=== PATIENT | male | born 1950 | race African-American/Black ===

== ENCOUNTER 2017-09-07 10:24 | Emergency (ER) | payer MEDICARE, MEDICAID ==
--- NOTE | 2017-09-07 11:39 | ULT ---
LEFT LOWER EXTREMITY VENOUS DOPPLER: History: Left lower extremity swelling and pain. Comparison: None. Technique: Real-time grayscale, color flow, and spectral analysis of the left lower extremity venous system was performed with a linear transducer. The common femoral, femoral, proximal portions of the greater saphenous and deep femoral veins as well as the popliteal and posterior tibial veins were int errogated. FINDINGS: Normal flow, augmentation, and compression. IMPRESSION: No deep venous thrombosis. POS: OFF
[2017-09-07] MEDS ORDERED: Ketorolac Tromethamine 30 MG/ML VIAL ONE (11:42)
[2017-09-07 11:51] LABS: #Eosinphils 0.2 thou/uL (0.0-0.7); #Lymphocytes 1.5 thou/uL (1.20-3.40); #Monocytes 0.6 thou/uL (0.11-0.59); #Neutrophils 4.3 thou/uL (1.40-6.50); %Basophils 0.4 % (0.0-1.0); %Lymphocytes 22.6 % (21.0-51.0); %Monocytes 8.8 % (0.0-10.0); Hematocrit 42.9 % (42.0-52.0); Mean Platelet Volume 7.8 fL (7.4-10.4); Red Blood Cell (RBC) Count 4.62 mill/uL (4.70-6.10); White Blood Cell (WBC) Count 6.6 thou/uL (4.8-10.8)
[2017-09-07 12:11] LABS: ALT (SGPT) 15 U/L (8-55); AST (SGOT) 16 U/L (5-34); Alkaline Phosphatase 81 U/L (40-150); Anion Gap 15 mmol/L (10-20); BUN (Urea Nitrogen) 24 mg/dL (8.4-25.7); Bilirubin, Total 0.5 mg/dL (0.2-1.2); Calc. Creatinine Clearance 0 mL/min (70-130); Calcium 11.3 mg/dL (7.8-10.44); Carbon Dioxide 24 mmol/L (23-31); Chloride 104 mmol/L (98-107); Estimated GFR-MDRD 60; Globulin 3.2 g/dL (2.4-3.5); Protein, Total 7.5 g/dL (5.8-8.1)
== END 2017-09-07 12:55 | disposition home or self-care (01) ==
LOC: ERS 10:24
DX: E11.41 Type 2 diabetes mellitus with diabetic mononeuropathy (principal); G57.92 Unspecified mononeuropathy of left lower limb; E78.5 Hyperlipidemia, unspecified; I10 Essential (primary) hypertension; Z79.84 Long term (current) use of oral hypoglycemic drugs; Z79.899 Other long term (current) drug therapy
CPT/HCPCS: 80053; 85025; 85379; 96374; J1885

== ENCOUNTER 2017-09-13 09:59 | Inpatient (IN) | payer MEDICARE, MEDICAID ==
[2017-09-13 11:02] LABS: #Eosinphils 0.1 thou/uL (0.0-0.7); #Lymphocytes 1.1 thou/uL (1.20-3.40); #Monocytes 1.1 thou/uL (0.11-0.59); #Neutrophils 11.8 thou/uL (1.40-6.50); %Basophils 0.2 % (0.0-1.0); %Eosinophils 0.4 % (0.0-10.0); %Lymphocytes 7.5 % (21.0-51.0); %Neutrophils 83.9 % (42.0-75.0); Hemoglobin 13.5 g/dL (14.0-18.0); Mean Corpuscular HGB CONC 33.2 g/dL (32.0-36.0); Mean Corpuscular Hemoglobin 30.9 pg (27.0-31.0); Mean Corpuscular Volume 93.1 fl (80.0-94.0); Mean Platelet Volume 6.4 fL (7.4-10.4); Platelet Count 240 thou/uL (130-400); RBC Distribution Width 12.3 % (11.5-14.5); Red Blood Cell (RBC) Count 4.38 mill/uL (4.70-6.10); White Blood Cell (WBC) Count 14.1 thou/uL (4.8-10.8)
[2017-09-13 11:17] LABS: Anion Gap 15 mmol/L (10-20); BUN (Urea Nitrogen) 12 mg/dL (8.4-25.7); Calc. Creatinine Clearance 0 mL/min (70-130); Calcium 10.4 mg/dL (7.8-10.44); Carbon Dioxide 27 mmol/L (23-31); Chloride 98 mmol/L (98-107); Estimated GFR-MDRD 79; Glucose 291 mg/dL (80-115); Potassium 4.1 mmol/L (3.5-5.1); Sodium 136 mmol/L (136-145)
[2017-09-13] MEDS ORDERED: Methocarbamol 1 GM in Sodium Chloride 0.9% 250 ML 250 ML IVPB SCH (11:45)
[2017-09-13 13:01] LABS: Bilirubin Negative (Negative); Blood, Urine Small (Negative); Clarity CLOUDY (Clear); Glucose, Urine (Dipstick) 500 mg/dL (Negative); Leukocyte Moderate (Negative); Nitrite Positive (Negative); Protein, Urine (Dipstick) Trace mg/dL (Neg-Trace); Specific Gravity, Urine 1.025 (1.002-1.036); Urobilinogen 0.2 mg/dL (0.2-1.0); pH, Urine 5.5 (5.0-9.0)
[2017-09-13 13:05] LABS: Bacteria/HPF 4+ HPF (None Seen); Hyaline Casts/LPF 0-3 HYALINE CAST LPF (0-3 Hyaline); Pathc Cast-AUWi Flag 0.13 (0-2.49); Squamous Epithelial 0-3 HPF (0-3)
[2017-09-13 13:07] LABS: Yeast-AUWi Flag 1112.7 (0-25.0)
[2017-09-13] MEDS ORDERED: Labetalol HCl 100 MG/20 ML VIAL ONE (13:08)
[2017-09-13 13:21] LABS: Yeast-All Forms 3+ HPF (None Seen)
[2017-09-13 16:15] VITALS: BMI 27.0
[2017-09-13] MEDS ORDERED: hydrALAZINE 20 MG/ML VIAL SLOW IVP PRN (17:19)
[2017-09-13] MEDS ORDERED: Ondansetron HCl/PF 4 MG/2 ML Vial IVP PRN (17:19)
[2017-09-13] MEDS ORDERED: Ondansetron ODT 4 MG TAB PO PRN (17:19)
[2017-09-13] MEDS ORDERED: Mag-Al 1200 mg/1200 mg/30 ML UDCUP PO PRN (17:19)
[2017-09-13] MEDS ORDERED: Dextrose 50% Abboject 50 ML SYRINGE SLOW IVP PRN (17:19)
[2017-09-13] MEDS ORDERED: Acetaminophen 325 MG TAB PO PRN (17:19)
[2017-09-13] MEDS ORDERED: Dextrose 5% in Water 1,000 ML IV PRN (17:19)
[2017-09-13] MEDS ORDERED: HumaLOG 300 UNITS/3 ML VIAL SC PRN (17:19)
--- NOTE | 2017-09-13 18:27 | HP ---
PRIMARY CARE PHYSICIAN: Madison Carcamo NP. CHIEF COMPLAINT: "I'm hurting from my head to my toe on the left side." HISTORY OF PRESENT ILLNESS: Mr. Milner is a pleasant 67-year-old gentleman who has a history of hy pertension as well as diabetes mellitus and history of previous cerebrovascular accident. He says th at he has been having pain in his left side. He says primarily from the shoulder area and to the otilio k of the neck all the way down the left side of his back and into his legs. He said he went to the e mergency room for evaluation and they prescribed a muscle relaxer, but it did not help. He says that he continued to have pain and came to the emergency room once again for evaluation. This time in [facility] emergency room, a urinalysis was done, which showed findings significant for a urinary tract infect ion. He also has an elevated white blood cell count and it is thought that his symptoms could be rel ated to pyelonephritis. He does admit to having some dysuria off and on, but denies any blood in the urine. He denies any fevers or chills. No nausea. No vomiting. He also denies any change in fang ls, but does admit to having some hard stool off and on. REVIEW OF SYSTEMS: Constitutional: Again, no fevers, no chills, no night sweats, no weight loss. H EENT: He denies any headaches. No dizziness. No sore throat, rhinorrhea. Neck: He has had some p ain on the left side of his neck. No adenopathy. Pulmonary: No hemoptysis. No cough. No wheezing . Cardiovascular: He denies chest pain. No shortness of breath. No PND. No orthopnea. Gastroint estinal: No abdominal pain. No nausea. No vomiting. No change in bowels. He does have some left flank pain. Genitourinary: He does complain of some dysuria, but no hematuria. Musculoskeletal: H e complains of pain in his back as well as his left leg down all the way to his feet. Skin/Integumen t: No skin changes. No rash. Psychiatric: No symptoms of anxiety or depression. PAST MEDICAL HISTORY: Significant for osteoarthritis, diabetes mellitus, hyperlipidemia, hypertensio n, cerebrovascular disease, and osteoarthritis. PAST SURGICAL HISTORY: He has had cataract surgery. ALLERGIES: PENICILLIN, CABBAGE, ALL DIET FOODS, and ASPARTAME. FAMILY HISTORY: Significant for cerebrovascular accident and diabetes mellitus. SOCIAL HISTORY: He is a nonsmoker, nondrinker. He lives with his sister. He says he normally gets around with a cane. He does have some difficulty getting in and out of bed. He says he sometimes olea ve to roll out of the bed and somehow roll back into the bed for transfers. CURRENT MEDICATIONS: He says they are the same as on his last admission and these include doxazosin 4 mg daily, metformin 1000 mg twice a day, glipizide 10 mg twice a day, Januvia 100 mg daily, carvedi lol 6.25 mg twice a day, Lasix 20 mg daily, atorvastatin 20 mg daily, albuterol nebs q.4 hours as nee ded, and Neurontin 100 mg twice a day. PHYSICAL EXAMINATION: GENERAL: He is alert and oriented. He appears to be in no acute distress. VITAL SIGNS: Blood pressure was 161/86, heart rate 106, respiratory rate of 20, temperature is 98.6. HEENT: Pupils are equal, round, and reactive. Extraocular muscles are intact. His sclerae are anic teric. Throat, no erythema and no exudates. NECK: No adenopathy. No bruits. LUNGS: Clear to auscultation. There is no wheezing. No rales. CARDIOVASCULAR: He has a normal S1 and S2. There is no S3 or S4. No murmurs, clicks or rubs. ABDOMEN: Obese, it is soft, it is nontender, and nondistended. Positive for bowel sounds. No rebou nd or guarding. EXTREMITIES: There is no edema. NEUROLOGIC: Neurologically he is intact. His muscle strength is 5/5 in both his upper and lower ext remities. He is able to dorsiflex the large toe on both feet, as well as dorsiflex his entire foot a nd plantar flex. There are some minimal positive straight leg raises on the left at about 20-30 degr ees. LABORATORY DATA: White blood cell count is 14.1, hemoglobin 13.5, hematocrit is 40.8, platelet count is 240. Sodium 136, potassium 4.1, chloride is 98, CO2 is 27, BUN of 12, creatinine 1.13, glucose i s 291. Urinalysis, urine was cloudy, it was nitrite positive, too numerous to count wbc's, small isabela unt of blood, and 4+ bacteria. ASSESSMENT AND PLAN: This is a 67-year-old gentleman who presents with left flank pain. He also has pain in his upper back and shoulder as well as lower legs, which does not typically coincide with th e symptoms of pyelonephritis. He does in fact have a urinary tract infection and leukocytosis howeve r. 1. Pyelonephritis. He will be treated with IV Levaquin pending culture results. Since he is penici llin allergic, we will hold off on Rocephin and await culture results to help guide tailoring antibio tic therapy. 2. Upper back pain as well as pain in his legs. This is not entirely explained by the pyelonephriti s. This will need to be reassessed after he has had a few days of IV therapy. If these symptoms con tinued, then he may need some type of radiographic evaluation of his back. 3. Diabetes mellitus. We will continue his home medications with the exception of metformin and shiv ce him on a sliding scale insulin. 4. He is on doxazosin. I suspect he has a history of BPH and we will check a PSA and continue the d oxazosin. He may need outpatient urology followup given the pyelonephritis to determine whether or n ot he has any structural defects in his urological system, which may place him at risk. 5. Hypertension. We will continue carvedilol and place him on p.r.n. medications for elevated blood pressure.
[2017-09-13] MEDS ORDERED: Non-Formulary Item 1 EACH (Levemir Flexpen [Levemir Flexpen] 30 UNIT) SC SCH (21:00)
[2017-09-13] MEDS: hydrALAZINE 25 MG TAB PO SCH (21:36)
[2017-09-13] MEDS: Carvedilol 6.25 MG TAB PO SCH (21:36)
[2017-09-13] MEDS: Atorvastatin Calcium 20 MG TAB PO SCH (21:37)
[2017-09-13] MEDS: Famotidine 20 MG TAB PO SCH (21:37)
[2017-09-13] MEDS: Insulin Detemir 100 UNITS/ML 30 UNITS in Pre-Filled Syringe 1 EACH SC SCH (21:44)
[2017-09-14] MEDS: HYDROcodone/Acetaminophen 5/325 mg Tablet PO PRN ×3 (04:27→19:44)
[2017-09-14 04:55] LABS: #Eosinphils 0.1 thou/uL (0.0-0.7); #Lymphocytes 1.3 thou/uL (1.20-3.40); #Monocytes 1.1 thou/uL (0.11-0.59); #Neutrophils 9.9 thou/uL (1.40-6.50); %Basophils 0.2 % (0.0-1.0); %Lymphocytes 10.5 % (21.0-51.0); %Monocytes 8.9 % (0.0-10.0); %Neutrophils 79.4 % (42.0-75.0); Hemoglobin 12.3 g/dL (14.0-18.0); Mean Corpuscular HGB CONC 32.7 g/dL (32.0-36.0); Mean Corpuscular Hemoglobin 30.2 pg (27.0-31.0); Mean Corpuscular Volume 92.3 fl (80.0-94.0); Mean Platelet Volume 6.5 fL (7.4-10.4); Platelet Count 236 thou/uL (130-400); RBC Distribution Width 12.1 % (11.5-14.5); Red Blood Cell (RBC) Count 4.08 mill/uL (4.70-6.10); White Blood Cell (WBC) Count 12.5 thou/uL (4.8-10.8)
[2017-09-14 05:00] LABS: Anion Gap 11 mmol/L (10-20); BUN (Urea Nitrogen) 11 mg/dL (8.4-25.7); Calc. Creatinine Clearance 95 mL/min (70-130); Calcium 9.7 mg/dL (7.8-10.44); Carbon Dioxide 27 mmol/L (23-31); Chloride 103 mmol/L (98-107); Estimated GFR-MDRD Greater than 90; Glucose 260 mg/dL (80-115); Potassium 3.9 mmol/L (3.5-5.1); Sodium 137 mmol/L (136-145)
[2017-09-14] MEDS: traMADol HCl 50 MG TAB PO PRN (06:20)
[2017-09-14] MEDS: HumaLOG 300 UNITS/3 ML VIAL SC PRN ×2 (06:23→12:23)
[2017-09-14] MEDS ORDERED: Fluconazole 100 MG TAB PO SCH (09:00)
[2017-09-14] MEDS: Enoxaparin Sodium 40 MG/0.4 ML SYRINGE SC SCH (09:43)
[2017-09-14] MEDS: Carvedilol 6.25 MG TAB PO SCH ×2 (09:44→19:45)
[2017-09-14] MEDS: hydrALAZINE 25 MG TAB PO SCH ×2 (09:44→19:44)
[2017-09-14] MEDS: glipiZIDE 10 MG TAB PO SCH ×2 (09:45→17:16)
[2017-09-14] MEDS: Alogliptin 25 MG TAB PO SCH (09:45)
[2017-09-14] MEDS: Aspirin 81 mg Enteric Coated Tablet PO SCH (09:45)
[2017-09-14] MEDS: Famotidine 20 MG TAB PO SCH ×2 (09:45→19:43)
[2017-09-14] MEDS: Insulin Detemir 100 UNITS/ML 30 UNITS in Pre-Filled Syringe 1 EACH SC SCH ×2 (09:46→21:20)
--- NOTE | 2017-09-14 10:43 | ULT ---
RENAL ULTRASOUND: Clinical history: Pyelonephritis. FINDINGS: Symmetric renal lengths approximating 12 cm bilaterally are noted. There are bilateral hypoechoic foc i of each kidney, slightly greater than 1 cm on the right and slightly less than 1 cm on the left, in dicating cysts. There is no overt hydronephrosis or solid renal lesion identified. Imaged area of the bladder is grossly unremarkable. IMPRESSION: 1. No acute renal pathology evident. 2. Bilateral small renal cysts. POS: [facility]
--- NOTE | 2017-09-14 15:28 | RAD ---
LEFT ANKLE THREE VIEWS: Indication: Pain. Comparison: 09-08-07 FINDINGS: Mortise is intact. No fracture or dislocation. IMPRESSION: No acute osseous abnormality of the left ankle. POS: [facility]
--- NOTE | 2017-09-14 15:38 | RAD ---
THREE VIEWS LEFT FOOT 09/14/17 COMPARISON: 11/29/11 HISTORY: Left leg pain. FINDINGS: There is dorsal midfoot degenerative change. There is no displaced fracture or evidence of dislocatio n. IMPRESSION: Stable three view examination of the left foot. No fracture or dislocation seen. POS: [facility]
--- NOTE | 2017-09-14 15:39 | RAD ---
FRONTAL AND LATERAL IMAGING LEFT TIBIA AND FIBULA 09/14/17 COMPARISON: None. HISTORY: Left leg pain. FINDINGS: Incompletely assessed degenerative joint disease involves the left knee with medial and lateral brendan rtment narrowing. No displaced fracture or evidence of dislocation is seen. IMPRESSION: No acute osseous abnormality. POS: [facility]
[2017-09-14] MEDS: Atorvastatin Calcium 20 MG TAB PO SCH (19:43)
[2017-09-14] MEDS ORDERED: hydrALAZINE 25 MG TAB PO SCH ×2 (20:44→21:30)
--- NOTE | 2017-09-14 20:46 | PDOC.PN ---
- Subjective Encounter Start Date: 09/14/17 Encounter Start Time: 14:30 Patient seen and examined. Some dysuria. No overnight events. LLE pain/ difficulty ambulation per PT - XR ordered. - Objective Resuscitation Status: Resuscitation Status FULL:Full Resuscitation MAR Reviewed: Yes Vital Signs & Weight: Vital Signs (12 hours) Temp Pulse Pulse Pulse Pulse Pulse Pulse 09/14/17 19:47 97.9 F 73 09/14/17 19:45 09/14/17 19:44 73 09/14/17 10:30 79 84 92 85 88 09/14/17 09:46 09/14/17 09:44 79 Pulse Pulse Resp BP BP BP BP 09/14/17 19:47 18 09/14/17 19:45 186/90 H 09/14/17 19:44 186/90 H 09/14/17 10:30 87 77 178/93 H 168/79 H 141/79 H 09/14/17 09:46 175/90 H 09/14/17 09:44 185/90 H BP BP BP BP BP Pulse Ox 09/14/17 19:47 186/90 H 98 09/14/17 19:45 09/14/17 19:44 09/14/17 10:30 151/75 H 161/78 H 178/85 H 203/92 H 09/14/17 09:46 09/14/17 09:44 Weight Admit Weight 199 lb 1.6 oz Weight 199 lb 1.6 oz I&O: 09/13/17 09/14/17 09/15/17 06:59 06:59 06:59 Intake Total 650 850 Output Total 325 Balance 325 850 Result Diagrams: 09/14/17 04:15 09/14/17 04:15 Additional Labs: Accuchecks 09/14/17 09/14/17 09/14/17 16:21 12:02 05:47 POC Glucose 117 H 232 H 217 H 09/13/17 21:44 POC Glucose 359 H Microbiology 09/13/17 12:23 Urine voided Urine Culture - Preliminary Gram Negative [place] Presumptive Escherichia coli Radiology Reviewed by me: Yes (Renal USG - no obstruction, LLE XR - negative) Phys Exam - Physical Examination Constitutional: NAD HEENT: moist MMs Respiratory: no wheezing, no rales, no rhonchi, clear to auscultation bilateral Cardiovascular: RRR, no significant murmur, no rub no heaves/pulsations Gastrointestinal: soft, non-tender, no distention, positive bowel sounds Musculoskeletal: no edema Neurological: non-focal, normal sensation, moves all 4 limbs Psychiatric: normal affect, A&O x 3 Dx/Plan - Plan continue antibiotics, PT/OT, DVT proph w/lovenox, DVT proph w/SCDs IMPRESSION: 1. Sepsis due to UTI ?Prostatitis 2. DM2 - on sliding scale 3. HTN - uncontrolled. 4. BPH 5. HLD/PCN allergy/chronic Anemia PLAN: * Await Urine culture * Cont Atbx * Cont to monitor * Increase Hydralazine dose Review of Systems - Review of Systems Respiratory: negative: Cough, Dry, Shortness of Breath, Hemoptysis, SOB with Excertion, Pleuritic Pain, Sputum, Wheezing Cardiovascular: negative: chest pain, palpitations, orthopnea, paroxysmal nocturnal dyspnea, edema, light headedness - Medications/Allergies Allergies/Adverse Reactions: Allergies Allergy/AdvReac Type Severity Reaction Status Date / Time aspartame Allergy Rash Verified 09/13/17 17:42 [From Konsyl Sugar-Free (aspartame)] codeine Allergy Verified 09/13/17 17:42 Penicillins Allergy Verified 09/13/17 17:42 Medications: Current Medications Acetaminophen (Tylenol) 650 mg PO Q4H PRN PRN Reason: Headache/Fever or Pain Hydrocodone Bitart/Acetaminophen (Newborn 5/325) 1 tab PO Q4H PRN PRN Reason: Moderate Pain (4-6) Last Admin: 09/14/17 19:44 Dose: 1 tab Al Hydroxide/Mg Hydroxide (Maalox) 30 ml PO Q6H PRN PRN Reason: Heartburn or Indigestion Alogliptin Benzoate (Alogliptin) 25 mg PO DAILY [facility] Last Admin: 09/14/17 09:45 Dose: 25 mg Aspirin (Ecotrin) 81 mg PO DAILY [facility] Last Admin: 09/14/17 09:45 Dose: 81 mg Atorvastatin Calcium (Lipitor) 20 mg PO HS [facility] Last Admin: 09/14/17 19:43 Dose: 20 mg Carvedilol (Coreg) 6.25 mg PO BID [facility] Last Admin: 09/14/17 19:45 Dose: 6.25 mg Dextrose/Water (Dextrose 50%) 25 gm SLOW IVP PRN PRN PRN Reason: Hypoglycemia Enoxaparin Sodium (Lovenox) 40 mg SC 0900 [facility] Last Admin: 09/14/17 09:43 Dose: 40 mg Famotidine (Pepcid) 20 mg PO BID [facility] Last Admin: 09/14/17 19:43 Dose: 20 mg Fluconazole (Diflucan) 100 mg PO DAILY [facility] Last Admin: 09/14/17 09:45 Dose: 100 mg Glipizide (Glucotrol) 10 mg PO BID[facility] Last Admin: 09/14/17 17:16 Dose: 10 mg Glucagon (Glucagon) 1 mg IM PRN PRN PRN Reason: Hypoglycemia Hydralazine HCl (Apresoline) 10 mg SLOW IVP Q4H PRN PRN Reason: Systolic BP > 180 Hydralazine HCl (Apresoline) 50 mg PO BID [facility] Dextrose/Water (D5w) 1,000 mls @ 0 mls/hr IV .Q0M PRN; As Directed PRN Reason: Hypoglycemia Levofloxacin 500 mg/ Device 100 mls @ 100 mls/hr IVPB Q24HR [facility] Last Admin: 09/14/17 17:16 Dose: 100 mls Insulin Detemir 30 units/ (Miscellaneous Medication) 0.3 mls @ 0 mls/hr SC BID [facility] Last Admin: 09/14/17 09:46 Dose: 0.3 mls Insulin Human Lispro (Humalog) 0 units SC .MODERATE SLIDING SC PRN PRN Reason: Moderate Correctional Scale Last Admin: 09/14/17 12:23 Dose: 4 unit Insulin Human Lispro (Humalog) 0 units SC .BEDTIME SLIDING SC PRN PRN Reason: Bedtime Correctional Scale Last Admin: 09/13/17 21:51 Dose: 5 unit Ondansetron HCl (Zofran Odt) 4 mg PO Q6H PRN PRN Reason: Nausea/Vomiting Ondansetron HCl (Zofran) 4 mg IVP Q6H PRN PRN Reason: Nausea/Vomiting Quinapril HCl (Accupril) 20 mg PO DAILY [facility] Last Admin: 09/14/17 09:46 Dose: 20 mg Sodium Chloride (Flush - Normal Saline) 10 ml IVF Q12HR [facility] Last Admin: 09/14/17 09:46 Dose: 10 ml Sodium Chloride (Flush - Normal Saline) 10 ml IVF PRN PRN PRN Reason: Saline Flush Tramadol HCl (Ultram) 50 mg PO QID PRN PRN Reason: Pain Last Admin: 09/14/17 06:20 Dose: 50 mg
[2017-09-15] MEDS: traMADol HCl 50 MG TAB PO PRN (00:18)
[2017-09-15] MEDS: HYDROcodone/Acetaminophen 5/325 mg Tablet PO PRN ×4 (03:42→20:17)
[2017-09-15 06:20] LABS: #Eosinphils 0.2 thou/uL (0.0-0.7); #Lymphocytes 0.6 thou/uL (1.20-3.40); #Monocytes 0.6 thou/uL (0.11-0.59); #Neutrophils 4.8 thou/uL (1.40-6.50); %Eosinophils 2.8 % (0.0-10.0); %Lymphocytes 10.1 % (21.0-51.0); %Monocytes 9.6 % (0.0-10.0); %Neutrophils 77.4 % (42.0-75.0); Hemoglobin 13.1 g/dL (14.0-18.0); Mean Corpuscular HGB CONC 32.9 g/dL (32.0-36.0); Mean Corpuscular Hemoglobin 30.4 pg (27.0-31.0); Mean Corpuscular Volume 92.4 fl (80.0-94.0); Mean Platelet Volume 6.7 fL (7.4-10.4); Platelet Count 239 thou/uL (130-400); White Blood Cell (WBC) Count 6.2 thou/uL (4.8-10.8)
[2017-09-15 06:36] LABS: ALT (SGPT) 15 U/L (8-55); AST (SGOT) 15 U/L (5-34); Albumin 3.5 g/dL (3.4-4.8); Alkaline Phosphatase 73 U/L (40-150); Anion Gap 13 mmol/L (10-20); BUN (Urea Nitrogen) 10 mg/dL (8.4-25.7); Bilirubin, Total 0.6 mg/dL (0.2-1.2); Calc. Creatinine Clearance 98 mL/min (70-130); Calcium 10.2 mg/dL (7.8-10.44); Carbon Dioxide 24 mmol/L (23-31); Chloride 105 mmol/L (98-107); Estimated GFR-MDRD Greater than 90; Globulin 3.2 g/dL (2.4-3.5); Glucose 157 mg/dL (80-115); Magnesium 1.7 mg/dL (1.6-2.6); Potassium 3.8 mmol/L (3.5-5.1); Protein, Total 6.7 g/dL (5.8-8.1); Sodium 138 mmol/L (136-145)
[2017-09-15] MEDS: Famotidine 20 MG TAB PO SCH ×2 (08:02→20:18)
[2017-09-15] MEDS: Carvedilol 6.25 MG TAB PO SCH ×2 (08:02→17:03)
[2017-09-15] MEDS: Alogliptin 25 MG TAB PO SCH (08:02)
[2017-09-15] MEDS: glipiZIDE 10 MG TAB PO SCH ×2 (08:02→17:03)
[2017-09-15] MEDS: Enoxaparin Sodium 40 MG/0.4 ML SYRINGE SC SCH (08:03)
[2017-09-15] MEDS: Aspirin 81 mg Enteric Coated Tablet PO SCH (08:03)
[2017-09-15] MEDS ORDERED: hydrALAZINE 25 MG TAB PO SCH (09:00)
[2017-09-15] MEDS: Insulin Detemir 100 UNITS/ML 30 UNITS in Pre-Filled Syringe 1 EACH SC SCH ×2 (10:37→22:25)
[2017-09-15] MEDS: HumaLOG 300 UNITS/3 ML VIAL SC PRN ×2 (10:40→17:03)
[2017-09-15] MEDS: hydrALAZINE 25 MG TAB PO SCH ×2 (15:10→20:19)
[2017-09-15] MEDS ORDERED: Amlodipine 5 MG TAB PO SCH (19:00)
--- NOTE | 2017-09-15 19:00 | PDOC.PN ---
- Subjective Encounter Start Date: 09/15/17 Encounter Start Time: 10:00 Patient seen and examined. No new complaints except for some burning on urination. No overnight events - Objective Resuscitation Status: Resuscitation Status FULL:Full Resuscitation MAR Reviewed: Yes Vital Signs & Weight: Vital Signs (12 hours) Temp Pulse Pulse Resp BP BP BP 09/15/17 18:02 161/78 H 09/15/17 17:03 187/88 H 09/15/17 15:10 187/88 H 09/15/17 15:00 98.5 F 73 18 187/88 H 09/15/17 12:04 139/77 09/15/17 09:14 92 144/72 H 09/15/17 09:00 97.4 F L 76 18 139/77 09/15/17 08:05 98 F 76 18 09/15/17 08:02 76 192/93 H 09/15/17 07:43 98.0 F 76 18 192/93 H Pulse Ox 09/15/17 18:02 09/15/17 17:03 09/15/17 15:10 09/15/17 15:00 97 09/15/17 12:04 09/15/17 09:14 09/15/17 09:00 97 09/15/17 08:05 97 09/15/17 08:02 09/15/17 07:43 97 Weight Admit Weight 199 lb 1.6 oz Weight 199 lb 1.6 oz I&O: 09/14/17 09/15/17 09/16/17 06:59 06:59 06:59 Intake Total 650 1750 1210 Output Total 325 950 Balance 494 491 6109 Result Diagrams: 09/15/17 05:33 09/15/17 05:34 Additional Labs: Accuchecks 09/15/17 09/15/17 09/15/17 16:34 10:34 05:34 POC Glucose 193 H 317 H 144 H 09/14/17 19:51 POC Glucose 198 H Microbiology 09/13/17 12:23 Urine voided Urine Culture - Final Enterobacter aerogenes Citrobacter koseri Phys Exam - Physical Examination Constitutional: NAD Respiratory: no wheezing, no rhonchi Cardiovascular: RRR, no rub Gastrointestinal: soft, non-tender, positive bowel sounds Musculoskeletal: no edema Neurological: moves all 4 limbs Dx/Plan - Plan DVT proph w/lovenox, DVT proph w/SCDs IMPRESSION: 1. Sepsis due to UTI ?Prostatitis 2. DM2 - on sliding scale 3. HTN - uncontrolled. 4. BPH 5. HLD/PCN allergy/chronic Anemia PLAN: * Increase Coreg dose * Add Amlodipine * Cont Atbx * Await final sensitivities * Cont to monitor * DC in AM if stable Review of Systems - Review of Systems Respiratory: negative: Cough, Dry, Shortness of Breath, Hemoptysis, SOB with Excertion, Pleuritic Pain, Sputum, Wheezing Cardiovascular: negative: chest pain, palpitations, orthopnea, paroxysmal nocturnal dyspnea, edema, light headedness - Medications/Allergies Allergies/Adverse Reactions: Allergies Allergy/AdvReac Type Severity Reaction Status Date / Time aspartame Allergy Rash Verified 09/13/17 17:42 [From Konsyl Sugar-Free (aspartame)] codeine Allergy Verified 09/13/17 17:42 Penicillins Allergy Verified 09/13/17 17:42 Medications: Current Medications Acetaminophen (Tylenol) 650 mg PO Q4H PRN PRN Reason: Headache/Fever or Pain Hydrocodone Bitart/Acetaminophen (Heber 5/325) 1 tab PO Q4H PRN PRN Reason: Moderate Pain (4-6) Last Admin: 09/15/17 15:10 Dose: 1 tab Al Hydroxide/Mg Hydroxide (Maalox) 30 ml PO Q6H PRN PRN Reason: Heartburn or Indigestion Alogliptin Benzoate (Alogliptin) 25 mg PO DAILY [facility] Last Admin: 09/15/17 08:02 Dose: 25 mg Amlodipine Besylate (Norvasc) 5 mg PO ONE [facility] Aspirin (Ecotrin) 81 mg PO DAILY [facility] Last Admin: 09/15/17 08:03 Dose: 81 mg Atorvastatin Calcium (Lipitor) [address] [facility] Last Admin: 09/14/17 19:43 Dose: 20 mg Carvedilol (Coreg) 12.5 mg PO BID[facility] Last Admin: 09/15/17 17:03 Dose: 12.5 mg Dextrose/Water (Dextrose 50%) 25 gm SLOW IVP PRN PRN PRN Reason: Hypoglycemia Famotidine (Pepcid) 20 mg PO BID [facility] Last Admin: 09/15/17 08:02 Dose: 20 mg Glipizide (Glucotrol) 10 mg PO BID-[facility] Last Admin: 09/15/17 17:03 Dose: 10 mg Glucagon (Glucagon) 1 mg IM PRN PRN PRN Reason: Hypoglycemia Hydralazine HCl (Apresoline) 10 mg SLOW IVP Q4H PRN PRN Reason: Systolic BP > 180 Last Admin: 09/15/17 03:47 Dose: 10 mg Hydralazine HCl (Apresoline) 50 mg PO TID [facility] Last Admin: 09/15/17 15:10 Dose: 50 mg Dextrose/Water (D5w) 1,000 mls @ 0 mls/hr IV .Q0M PRN; As Directed PRN Reason: Hypoglycemia Levofloxacin 500 mg/ Device 100 mls @ 100 mls/hr IVPB Q24HR [facility] Stop: 09/15/17 23:59 Last Admin: 09/15/17 17:06 Dose: 100 mls Insulin Detemir 30 units/ (Miscellaneous Medication) 0.3 mls @ 0 mls/hr SC BID [facility] Last Admin: 09/15/17 10:37 Dose: 0.3 mls Insulin Human Lispro (Humalog) 0 units SC .MODERATE SLIDING SC PRN PRN Reason: Moderate Correctional Scale Last Admin: 09/15/17 17:03 Dose: 2 unit Insulin Human Lispro (Humalog) 0 units SC .BEDTIME SLIDING SC PRN PRN Reason: Bedtime Correctional Scale Last Admin: 09/13/17 21:51 Dose: 5 unit Ondansetron HCl (Zofran Odt) 4 mg PO Q6H PRN PRN Reason: Nausea/Vomiting Ondansetron HCl (Zofran) 4 mg IVP Q6H PRN PRN Reason: Nausea/Vomiting Quinapril HCl (Accupril) 20 mg PO DAILY [facility] Last Admin: 09/15/17 12:04 Dose: 20 mg Sodium Chloride (Flush - Normal Saline) 10 ml IVF Q12HR [facility] Last Admin: 09/15/17 12:05 Dose: 10 ml Sodium Chloride (Flush - Normal Saline) 10 ml IVF PRN PRN PRN Reason: Saline Flush Tramadol HCl (Ultram) 50 mg PO QID PRN PRN Reason: Pain Last Admin: 09/15/17 00:18 Dose: 50 mg Trimethoprim/Sulfamethoxazole (Bactrim Ds) 1 tab PO BID [facility]
[2017-09-15] MEDS: Atorvastatin Calcium 20 MG TAB PO SCH (20:18)
[2017-09-15] MEDS: Sulfameth/Trimethoprim DS 800-160mg TAB PO SCH (20:20)
[2017-09-16] MEDS: traMADol HCl 50 MG TAB PO PRN (05:20)
[2017-09-16] MEDS: glipiZIDE 10 MG TAB PO SCH (07:51)
[2017-09-16] MEDS: HYDROcodone/Acetaminophen 5/325 mg Tablet PO PRN (07:51)
[2017-09-16] MEDS: Carvedilol 6.25 MG TAB PO SCH (07:51)
[2017-09-16] MEDS: Sulfameth/Trimethoprim DS 800-160mg TAB PO SCH (07:52)
[2017-09-16] MEDS: Alogliptin 25 MG TAB PO SCH (07:52)
[2017-09-16] MEDS: Famotidine 20 MG TAB PO SCH (07:52)
[2017-09-16] MEDS: hydrALAZINE 25 MG TAB PO SCH (07:52)
[2017-09-16] MEDS: Aspirin 81 mg Enteric Coated Tablet PO SCH (07:54)
[2017-09-16 08:11] VITALS: TEMP 98.7
[2017-09-16] MEDS: Insulin Detemir 100 UNITS/ML 30 UNITS in Pre-Filled Syringe 1 EACH SC SCH (10:34)
[2017-09-16 12:40] VITALS: BP 139/83
--- NOTE | 2017-09-16 13:05 | DIS ---
DATE OF ADMISSION: 09/13/2017 DATE OF DISCHARGE: 09/16/2017 DISCHARGE DISPOSITION: Home with home health care. ALLERGIES: The patient is allergic to CODEINE, PENICILLIN, and ASPARTAME. The patient was seen and examined on the day of discharge. Denies any new complaints, no chest pain, shortness of breath or palpitations. DISCHARGE MEDICATIONS: 1. Hydralazine 50 mg b.i.d. (new medication). 2. Bactrim double strength 1 tablet b.i.d. for next 7 days. 3. Januvia 100 mg daily. 4. Metformin 1000 mg b.i.d. 5. Levemir 30 units subcutaneously b.i.d. 6. Glipizide 10 mg b.i.d. 7. Gabapentin 100 mg b.i.d. 8. Lasix 20 mg daily. 9. Carvedilol 6.25 mg b.i.d. 10. Lipitor 20 mg at bedtime. 11. Proventil as needed. 12. Aspirin 81 mg daily. INPATIENT CONSULTANTS: None. HOSPITAL COURSE: The patient is a 67-year-old male with hypertension, diabetes mellitus type 2, hype rlipidemia, and CVA in the past, presented to the hospital with generalized weakness and fatigue. He also had some flank pain on the left side. Please refer to the history and physical dated 8 for further details. The patient was admitted to the hospital with a diagnosis of sepsis secondary to urinary tract infect ion. His white blood cell was 14.1 on admission with 83.9% neutrophils. He was started on broad spe ctrum antibiotic that has been changed to p.o. His urine culture was positive for Enterobacter and C itrobacter sensitive to Bactrim. He was advised to follow up with Urology as outpatient. Renal ultr asound was negative for obstructive uropathy. It showed bilateral small renal cysts. He was evaluat ed by physical therapy who recommended rehabilitation; however, patient declined rehabilitation. He will be discharged home with home health care. Fall precaution was emphasized. Due to elevated bloo d pressure, his medications have been optimized. He was advised to monitor his blood pressure on a d aily basis and maintain a log. He appears stable for discharge. FINAL DIAGNOSES: 1. Sepsis secondary to urinary tract infection. 2. Diabetes mellitus type 2. 3. Hypertension. 4. Benign prostatic hypertrophy. 5. Hyperlipidemia. 6. PENICILLIN allergy. 7. Chronic anemia. Plan of care was discussed with the patient in detail. He stated understanding. Total time coordinating the discharge of this patient was 35 minutes. Again, the patient was counseled to extensively monitor his blood pressure and maintain a log.
== END 2017-09-16 14:08 | disposition home health service (06) | DRG 872 ==
LOC: ERS 09:59 → ONC 14:00
PROVIDERS: ADMIT Internal Medicine; ATTEND Internal Medicine
DX: A41.9 Sepsis, unspecified organism (principal); N28.1 Cyst of kidney, acquired; N12 Tubulo-interstitial nephritis, not specified as acute or chronic; E11.9 Type 2 diabetes mellitus without complications; N40.0 Benign prostatic hyperplasia without lower urinary tract symptoms; E78.5 Hyperlipidemia, unspecified; D64.9 Anemia, unspecified; I10 Essential (primary) hypertension; M79.606 Pain in leg, unspecified; Z86.73 Personal history of transient ischemic attack (TIA), and cerebral infarction without residual deficits; Z88.0 Allergy status to penicillin
CPT/HCPCS: 36415; 36416; 76770; 80048; 80053; 81003; 81015; 83735; 85025; 87077; 87086; 87186; 96365; 96367; 96375; A4216; G8978-GP-CJ; G8979-GP-CI; G8987-GO-CJ; G8988-GO-CI; J0360; J0744; J1650; J1815; J1956; J2800; J7050

== ENCOUNTER 2017-12-23 14:00 | Outpatient (CLI) | payer MEDICAID, MEDICARE | END 2017-12-23 14:01 | disposition home or self-care (01) | LOC: BICULT 14:00 | PROVIDERS: ATTEND Family Medicine | DX: I70.209 Unspecified atherosclerosis of native arteries of extremities, unspecified extremity (principal) | CPT/HCPCS: 93923 ==

== ENCOUNTER 2018-01-26 21:04 | Emergency (ER) | payer MEDICAID, MEDICARE ==
--- NOTE | 2018-01-26 22:34 | CT ---
CT BRAIN WITHOUT CONTRAST 01/26/18 HISTORY: Dizziness and hypertension. COMPARISON: CT brain from 2016. FINDINGS: Moderate periventricular and deep white matter microangiopathic changes. No acute territorial infarct or hemorrhage. No midline shift or mass effect. The calvarium is intact. The paranasal sinuses and mastoids are clear. IMPRESSION: No acute intracranial abnormality. No significant change. POS: [facility]
[2018-01-26 22:42] LABS: #Eosinphils 0.3 thou/uL (0.0-0.7); #Lymphocytes 1.8 thou/uL (1.20-3.40); #Monocytes 0.7 thou/uL (0.11-0.59); #Neutrophils 4.5 thou/uL (1.40-6.50); %Basophils 0.4 % (0.0-1.0); %Eosinophils 4.1 % (0.0-10.0); %Lymphocytes 24.4 % (21.0-51.0); %Monocytes 9.2 % (0.0-10.0); %Neutrophils 61.9 % (42.0-75.0); Hemoglobin 13.5 g/dL (14.0-18.0); Mean Corpuscular HGB CONC 34.2 g/dL (32.0-36.0); Mean Corpuscular Hemoglobin 30.9 pg (27.0-31.0); Mean Corpuscular Volume 90.5 fl (80.0-94.0); Mean Platelet Volume 6.8 fL (7.4-10.4); Platelet Count 237 thou/uL (130-400); RBC Distribution Width 12.2 % (11.5-14.5); Red Blood Cell (RBC) Count 4.36 mill/uL (4.70-6.10); White Blood Cell (WBC) Count 7.3 thou/uL (4.8-10.8)
[2018-01-26 22:48] LABS: ALT (SGPT) 12 U/L (8-55); AST (SGOT) 12 U/L (5-34); Alkaline Phosphatase 89 U/L (40-150); Anion Gap 12 mmol/L (10-20); BUN (Urea Nitrogen) 13 mg/dL (8.4-25.7); Bilirubin, Total 0.3 mg/dL (0.2-1.2); Calc. Creatinine Clearance 0 mL/min (70-130); Calcium 10.1 mg/dL (7.8-10.44); Carbon Dioxide 25 mmol/L (23-31); Chloride 103 mmol/L (98-107); Estimated GFR-MDRD 80; Globulin 2.7 g/dL (2.4-3.5); Glucose 221 mg/dL (80-115); Protein, Total 6.7 g/dL (5.8-8.1); Sodium 136 mmol/L (136-145)
[2018-01-26 22:52] LABS: CKMB 1.6 ng/mL (0-6.6); Troponin I Less than 0.010 ng/mL (< 0.028)
[2018-01-26] MEDS ORDERED: hydrALAZINE 20 MG/ML VIAL ONE (23:00)
[2018-01-27] MEDS ORDERED: Lisinopril 10 MG TAB ONE ×2 (00:02→00:07)
[2018-01-27] MEDS ORDERED: Norepinephrine 4 MG/4 ML VIAL ONE (00:02)
[2018-01-27] MEDS ORDERED: hydrALAZINE 20 MG/ML VIAL ONE (00:09)
--- NOTE | 2018-01-29 15:23 | EKG ---
Test Reason : Blood Pressure : / mmHG Vent. Rate : 079 BPM Atrial Rate : 079 BPM P-R Int : 186 ms QRS Dur : 096 ms QT Int : 354 ms P-R-T Axes : 045 -18 -06 degrees QTc Int : 405 ms Normal sinus rhythm Possible Left atrial enlargement Left ventricular hypertrophy Abnormal ECG Confirmed by GENARO JAMES, JAQUELINE Carpenter ([id number]), make up editor ANDIE STONE ([id number]) on 01/29/2018 3:23:23 PM Referred By: Confirmed By:JAQUELINE LAM MD
== END 2018-01-27 00:35 | disposition home or self-care (01) ==
LOC: ERS 21:04
DX: I16.0 Hypertensive urgency (principal); K21.9 Gastro-esophageal reflux disease without esophagitis; E11.9 Type 2 diabetes mellitus without complications; E78.5 Hyperlipidemia, unspecified; I10 Essential (primary) hypertension; Z79.899 Other long term (current) drug therapy; Z79.84 Long term (current) use of oral hypoglycemic drugs; Z86.73 Personal history of transient ischemic attack (TIA), and cerebral infarction without residual deficits
CPT/HCPCS: 36415; 70450; 80053; 82553; 84484; 85025; 93005; 96374; 96376; J0360; J1610

== ENCOUNTER 2018-02-20 13:02 | Emergency (ER) | payer MEDICARE ==
[2018-02-20 13:47] LABS: #Eosinphils 0.2 thou/uL (0.0-0.7); #Lymphocytes 1.4 thou/uL (1.20-3.40); #Monocytes 0.6 thou/uL (0.11-0.59); #Neutrophils 5.4 thou/uL (1.40-6.50); %Basophils 0.1 % (0.0-1.0); %Eosinophils 2.9 % (0.0-10.0); %Lymphocytes 18.8 % (21.0-51.0); %Monocytes 7.3 % (0.0-10.0); %Neutrophils 70.8 % (42.0-75.0); Hemoglobin 13.4 g/dL (14.0-18.0); Mean Corpuscular HGB CONC 34.3 g/dL (32.0-36.0); Mean Corpuscular Hemoglobin 30.7 pg (27.0-31.0); Mean Corpuscular Volume 89.7 fl (80.0-94.0); Mean Platelet Volume 6.6 fL (7.4-10.4); Platelet Count 211 thou/uL (130-400); RBC Distribution Width 12.2 % (11.5-14.5); Red Blood Cell (RBC) Count 4.36 mill/uL (4.70-6.10); White Blood Cell (WBC) Count 7.6 thou/uL (4.8-10.8)
[2018-02-20 14:09] LABS: ALT (SGPT) 14 U/L (8-55); AST (SGOT) 15 U/L (5-34); Alkaline Phosphatase 72 U/L (40-150); Anion Gap 14 mmol/L (10-20); BUN (Urea Nitrogen) 13 mg/dL (8.4-25.7); Bilirubin, Total 0.3 mg/dL (0.2-1.2); Calc. Creatinine Clearance 0 mL/min (70-130); Calcium 10.1 mg/dL (7.8-10.44); Carbon Dioxide 24 mmol/L (23-31); Chloride 107 mmol/L (98-107); Estimated GFR-MDRD 78; Globulin 2.7 g/dL (2.4-3.5); Glucose 129 mg/dL (80-115); Potassium 3.8 mmol/L (3.5-5.1); Protein, Total 6.7 g/dL (5.8-8.1); Sodium 141 mmol/L (136-145)
[2018-02-20 14:12] LABS: CKMB 3.2 ng/mL (0-6.6); Troponin I Less than 0.010 ng/mL (< 0.028)
--- NOTE | 2018-02-20 14:39 | RAD ---
CHEST 1 VIEW: HISTORY: Dyspnea. COMPARISON: 12/26/16. FINDINGS: Cardiac silhouette is magnified by projection. Pulmonary vasculature is unremarkable. Mediastinum i s midline. No lobar consolidation or evidence of pneumothorax. electronic device monitor leads overlie the ch est. IMPRESSION: No active cardiopulmonary abnormalities are demonstrated. POS: [facility]
[2018-02-20] MEDS ORDERED: Ketorolac Tromethamine 30 MG/ML VIAL ONE (16:09)
== END 2018-02-20 16:38 | disposition home or self-care (01) ==
LOC: ERS 13:02
DX: R60.0 Localized edema (principal); I10 Essential (primary) hypertension; K21.9 Gastro-esophageal reflux disease without esophagitis; E11.9 Type 2 diabetes mellitus without complications; E78.5 Hyperlipidemia, unspecified; Z86.73 Personal history of transient ischemic attack (TIA), and cerebral infarction without residual deficits; Z79.899 Other long term (current) drug therapy; Z79.4 Long term (current) use of insulin
CPT/HCPCS: 36415; 71045; 80053; 82553; 83880; 84484; 85025; 93005; 96374; J1885

== ENCOUNTER 2018-03-03 11:51 | Emergency (ER) | payer MEDICARE ==
[2018-03-03] MEDS ORDERED: HYDROcodone/Acetaminophen 5/325 mg Tablet ONE (12:48)
[2018-03-03 12:59] LABS: #Eosinphils 0.3 thou/uL (0.0-0.7); #Lymphocytes 1.5 thou/uL (1.20-3.40); #Monocytes 0.7 thou/uL (0.11-0.59); #Neutrophils 4.7 thou/uL (1.40-6.50); %Basophils 0.5 % (0.0-1.0); %Lymphocytes 20.5 % (21.0-51.0); %Monocytes 9.8 % (0.0-10.0); %Neutrophils 65.2 % (42.0-75.0); Hemoglobin 13.8 g/dL (14.0-18.0); Mean Corpuscular HGB CONC 34.2 g/dL (32.0-36.0); Mean Corpuscular Hemoglobin 30.4 pg (27.0-31.0); Mean Corpuscular Volume 88.9 fL (78.0-98.0); Mean Platelet Volume 6.7 fL (7.4-10.4); Platelet Count 247 thou/uL (130-400); RBC Distribution Width 12.4 % (11.5-14.5); Red Blood Cell (RBC) Count 4.55 mill/uL (4.70-6.10); White Blood Cell (WBC) Count 7.2 thou/uL (4.8-10.8)
[2018-03-03 13:18] LABS: ALT (SGPT) 17 U/L (8-55); AST (SGOT) 19 U/L (5-34); Albumin 4.3 g/dL (3.4-4.8); Alkaline Phosphatase 77 U/L (40-150); Anion Gap 16 mmol/L (10-20); BUN (Urea Nitrogen) 15 mg/dL (8.4-25.7); Bilirubin, Total 0.4 mg/dL (0.2-1.2); Calc. Creatinine Clearance 0 mL/min (70-130); Calcium 10.2 mg/dL (7.8-10.44); Carbon Dioxide 23 mmol/L (23-31); Chloride 105 mmol/L (98-107); Estimated GFR-MDRD 79; Globulin 3.1 g/dL (2.4-3.5); Glucose 86 mg/dL (80-115); Potassium 3.7 mmol/L (3.5-5.1); Protein, Total 7.4 g/dL (5.8-8.1); Sodium 140 mmol/L (136-145)
[2018-03-03 13:23] LABS: CKMB 4.7 ng/mL (0-6.6); Troponin I Less than 0.010 ng/mL (< 0.028)
--- NOTE | 2018-03-03 13:50 | RAD ---
CHEST TWO VIEWS: History: Edema. Comparison: 02-20-18 FINDINGS: There is a left lower lobe airspace opacity. Mild interstitial edema. No pneumothorax. Heart size is upper limits of normal. IMPRESSION: 1. Developing left basilar airspace opacity concerning for infection. 2. Mild interstitial prominence suggesting edema. POS: [facility]
[2018-03-03] MEDS ORDERED: Ondansetron ODT 4 MG TAB ONE (14:10)
== END 2018-03-03 14:29 | disposition home or self-care (01) ==
LOC: ERS 11:51
DX: J18.9 Pneumonia, unspecified organism (principal); I10 Essential (primary) hypertension; K21.9 Gastro-esophageal reflux disease without esophagitis; E11.9 Type 2 diabetes mellitus without complications; E78.5 Hyperlipidemia, unspecified; Z79.899 Other long term (current) drug therapy; Z79.4 Long term (current) use of insulin
CPT/HCPCS: 36415; 71046; 80053; 82553; 83880; 84484; 85025; 93005; Q0162

== ENCOUNTER 2018-04-21 15:38 | Emergency (ER) | payer MEDICARE ==
[2018-04-21] MEDS ORDERED: Meclizine HCl 25 MG TAB ONE (15:56)
[2018-04-21 16:16] LABS: #Eosinphils 0.1 thou/uL (0.0-0.7); #Lymphocytes 1.4 thou/uL (1.20-3.40); #Monocytes 0.5 thou/uL (0.11-0.59); #Neutrophils 6.8 thou/uL (1.40-6.50); %Basophils 0.2 % (0.0-1.0); %Eosinophils 1.3 % (0.0-10.0); %Lymphocytes 15.8 % (21.0-51.0); %Monocytes 5.7 % (0.0-10.0); Hemoglobin 13.3 g/dL (14.0-18.0); Mean Corpuscular Hemoglobin 30.4 pg (27.0-31.0); Mean Corpuscular Volume 89.4 fL (78.0-98.0); Mean Platelet Volume 6.9 fL (7.4-10.4); Platelet Count 218 thou/uL (130-400); RBC Distribution Width 12.5 % (11.5-14.5); Red Blood Cell (RBC) Count 4.36 mill/uL (4.70-6.10); White Blood Cell (WBC) Count 8.8 thou/uL (4.8-10.8)
--- NOTE | 2018-04-21 16:23 | CT ---
CT HEAD NONCONTRAST: 04/21/18 HISTORY: Dizziness, altered mental status. COMPARISON: 01/26/18. FINDINGS: There is no evidence of acute intracranial hemorrhage or infarct. Prominent chronic ischemic small ve ssel disease is again demonstrated throughout the periventricular white matter of each cerebral hemis phere. There is no mass effect or shift of midline structures. The visualized paranasal sinuses remai n well aerated. IMPRESSION: Chronic type findings are stable. No acute intracranial abnormalities are demonstrated on noncontrast CT head. POS: [facility]
[2018-04-21 16:39] LABS: ALT (SGPT) 13 U/L (8-55); AST (SGOT) 10 U/L (5-34); Albumin 3.9 g/dL (3.4-4.8); Alkaline Phosphatase 99 U/L (40-150); Anion Gap 16 mmol/L (10-20); BUN (Urea Nitrogen) 19 mg/dL (8.4-25.7); Bilirubin, Total 0.6 mg/dL (0.2-1.2); Calc. Creatinine Clearance 0 mL/min (70-130); Calcium 9.5 mg/dL (7.8-10.44); Carbon Dioxide 22 mmol/L (23-31); Chloride 102 mmol/L (98-107); Estimated GFR-MDRD 37; Globulin 2.5 g/dL (2.4-3.5); Glucose 364 mg/dL (80-115); Potassium 4.4 mmol/L (3.5-5.1); Protein, Total 6.4 g/dL (5.8-8.1); Sodium 136 mmol/L (136-145)
[2018-04-21 16:42] LABS: CKMB 1.9 ng/mL (0-6.6); Troponin I Less than 0.010 ng/mL (< 0.028)
== END 2018-04-21 17:30 | disposition home or self-care (01) ==
LOC: ERS 15:38
DX: R42 Dizziness and giddiness (principal); I10 Essential (primary) hypertension; K21.9 Gastro-esophageal reflux disease without esophagitis; E11.9 Type 2 diabetes mellitus without complications; E78.5 Hyperlipidemia, unspecified; Z79.899 Other long term (current) drug therapy; Z79.4 Long term (current) use of insulin
CPT/HCPCS: 36415; 70450; 80053; 82553; 84484; 85025; 93005; 96360

== ENCOUNTER 2018-08-05 10:44 | Emergency (ER) | payer MEDICARE ==
[2018-08-05 11:12] LABS: #Basophils 0.1 thou/uL (0.0-0.2); #Eosinphils 0.2 thou/uL (0.0-0.7); #Lymphocytes 1.3 thou/uL (1.20-3.40); #Monocytes 0.4 thou/uL (0.11-0.59); #Neutrophils 3.5 thou/uL (1.40-6.50); %Basophils 0.9 % (0.0-1.0); %Eosinophils 3.5 % (0.0-10.0); %Lymphocytes 23.8 % (21.0-51.0); %Monocytes 7.1 % (0.0-10.0); %Neutrophils 64.8 % (42.0-75.0); Hemoglobin 13.6 g/dL (14.0-18.0); Mean Corpuscular HGB CONC 32.2 g/dL (32.0-36.0); Mean Corpuscular Hemoglobin 28.7 pg (27.0-31.0); Mean Corpuscular Volume 89.1 fL (78.0-98.0); Mean Platelet Volume 7.1 fL (7.4-10.4); Platelet Count 250 thou/uL (130-400); Red Blood Cell (RBC) Count 4.73 mill/uL (4.70-6.10); White Blood Cell (WBC) Count 5.5 thou/uL (4.8-10.8)
[2018-08-05 11:17] LABS: Bicarbonate (HCO3v) 27.4 mmol/L (1.0-85.0); CO2 Tension (PvCO2) 44.7 mmHg (41.0-51.0); Calcium, Ionized 1.26 mmol/L (1.12-1.32); Hemoglobin - Calc 13.8 g/dL (12.0-18.0); Potassium 4.3 mmol/L (3.4-4.7); T. Carbon Dioxide 28.8 mmol/L (1.0-85.0); pH (Venous) 7.395 (7.35-7.45); vO2 Saturation-calc 76.9 % (94-98)
[2018-08-05 11:40] LABS: ALT (SGPT) 17 U/L (8-55); AST (SGOT) 18 U/L (5-34); Albumin 4.1 g/dL (3.4-4.8); Alkaline Phosphatase 122 U/L (40-150); Anion Gap 15 mmol/L (10-20); BUN (Urea Nitrogen) 11 mg/dL (8.4-25.7); Bilirubin, Total 0.5 mg/dL (0.2-1.2); Calc. Creatinine Clearance 0 mL/min (70-130); Calcium 10.2 mg/dL (7.8-10.44); Carbon Dioxide 23 mmol/L (23-31); Chloride 102 mmol/L (98-107); Estimated GFR-MDRD 52; Globulin 3.6 g/dL (2.4-3.5); Glucose 393 mg/dL (80-115); Potassium 4.2 mmol/L (3.5-5.1); Protein, Total 7.7 g/dL (5.8-8.1); Sodium 136 mmol/L (136-145)
[2018-08-05 12:19] LABS: Bilirubin Negative (Negative); Blood, Urine Trace (Negative); Clarity CLEAR (Clear); Glucose, Urine (Dipstick) >=1000 mg/dL (Negative); Leukocyte Negative (Negative); Nitrite Negative (Negative); Protein, Urine (Dipstick) Negative (Neg-Trace); Specific Gravity, Urine 1.027 (1.002-1.036)
[2018-08-05 12:21] LABS: Bacteria/HPF None Seen HPF (None Seen); Hyaline Casts/LPF 0-3 HYALINE CAST LPF (0-3 Hyaline); RBC/HPF 0-3 HPF (0-3); Squamous Epithelial 0-3 HPF (0-3); WBC/HPF 0-3 HPF (0-3)
[2018-08-05] MEDS ORDERED: cloNIDine 0.1 MG TAB ONE (14:33)
== END 2018-08-05 15:24 | disposition home or self-care (01) ==
LOC: ERS 10:44
DX: E11.65 Type 2 diabetes mellitus with hyperglycemia (principal); I10 Essential (primary) hypertension; E78.5 Hyperlipidemia, unspecified; Z79.4 Long term (current) use of insulin; Z79.899 Other long term (current) drug therapy
CPT/HCPCS: 36416; 80053; 81003; 81015; 82010; 82330; 82803; 85025; 96360; 96361

== ENCOUNTER 2018-09-03 09:58 | Inpatient (IN) | payer MEDICARE ==
--- NOTE | 2018-09-03 10:37 | RAD ---
FRONTAL RADIOGRAPH CHEST: Date: 09/03/18 COMPARISON: 02/20/18. HISTORY: Chest pain. FINDINGS: No pneumothorax, pleural fluid, lobar consolidation, or alveolar edema. Heart and mediastinal contour s grossly unremarkable. IMPRESSION: No focal consolidation or alveolar edema. POS: [facility]
[2018-09-03 10:49] LABS: #Eosinphils 0.2 thou/uL (0.0-0.7); #Lymphocytes 1.3 thou/uL (1.20-3.40); #Monocytes 0.9 thou/uL (0.11-0.59); #Neutrophils 10.3 thou/uL (1.40-6.50); %Basophils 0.3 % (0.0-1.0); %Eosinophils 1.7 % (0.0-10.0); %Lymphocytes 10.2 % (21.0-51.0); %Monocytes 6.8 % (0.0-10.0); Hemoglobin 12.9 g/dL (14.0-18.0); Mean Corpuscular HGB CONC 32.9 g/dL (32.0-36.0); Mean Corpuscular Hemoglobin 29.2 pg (27.0-31.0); Mean Corpuscular Volume 88.7 fL (78.0-98.0); Mean Platelet Volume 6.9 fL (7.4-10.4); Platelet Count 234 thou/uL (130-400); Red Blood Cell (RBC) Count 4.43 mill/uL (4.70-6.10); White Blood Cell (WBC) Count 12.7 thou/uL (4.8-10.8)
[2018-09-03 11:12] LABS: ALT (SGPT) 11 U/L (8-55); AST (SGOT) 10 U/L (5-34); Albumin 3.7 g/dL (3.4-4.8); Alkaline Phosphatase 91 U/L (40-150); Anion Gap 15 mmol/L (10-20); BUN (Urea Nitrogen) 17 mg/dL (8.4-25.7); Bilirubin, Total 0.8 mg/dL (0.2-1.2); Calc. Creatinine Clearance 0 mL/min (70-130); Calcium 9.9 mg/dL (7.8-10.44); Carbon Dioxide 25 mmol/L (23-31); Chloride 98 mmol/L (98-107); Estimated GFR-MDRD 60; Globulin 3.7 g/dL (2.4-3.5); Glucose 415 mg/dL (80-115); Potassium 3.5 mmol/L (3.5-5.1); Protein, Total 7.4 g/dL (5.8-8.1); Sodium 134 mmol/L (136-145)
--- NOTE | 2018-09-03 13:33 | CT ---
CT PULMONARY ANGIOGRAM WITH IV CONTRAST AND 3D POSTPROCESSING: Date: 09/03/18 HISTORY: Chest pain and cough. FINDINGS: No filling defects are seen in the pulmonary arterial vasculature to suggest pulmonary embolism. The thoracic aorta is well opacified without aneurysm or dissection. No pleural or pericardial effusions are noted. No pneumothoraces are seen. There is patchy consolidation in the lung bases. No degenerati ve changes in the spine. IMPRESSION: No CT evidence of pulmonary embolism. Patchy consolidative changes in the lung bases. Possibility of pneumonia should be considered. POS: [facility]
[2018-09-03] MEDS ORDERED: Sodium Chloride 0.9% 100 ML ONE (13:52)
[2018-09-03] MEDS ORDERED: cefTRIAXone\\ROCEPHIN 2 GM VIAL ONE (13:52)
[2018-09-03 15:09] LABS: Troponin I Less than 0.010 ng/mL (< 0.028)
[2018-09-03] MEDS ORDERED: Benzonatate 100 MG CAP PO PRN (15:25)
[2018-09-03] MEDS ORDERED: Senokot S 8.6-50 MG TAB PO PRN (15:25)
[2018-09-03] MEDS ORDERED: Acetaminophen 325 MG TAB PO PRN (15:25)
[2018-09-03] MEDS ORDERED: cloNIDine 0.1 MG TAB PO PRN (15:25)
[2018-09-03] MEDS ORDERED: Nitroglycerin 0.4 MG TAB (25 Tab Bottle) SL PRN (15:25)
[2018-09-03] MEDS ORDERED: hydrALAZINE 20 MG/ML VIAL SLOW IVP PRN (15:25)
[2018-09-03] MEDS ORDERED: Bisacodyl 5 MG TAB PO PRN (15:25)
[2018-09-03] MEDS ORDERED: Sodium Chloride 0.9% 1,000 ML IV SCH (15:30)
[2018-09-03 15:58] LABS: Anion Gap 17 mmol/L (10-20); BUN (Urea Nitrogen) 16 mg/dL (8.4-25.7); Calc. Creatinine Clearance 0 mL/min (70-130); Calcium 10.2 mg/dL (7.8-10.44); Carbon Dioxide 23 mmol/L (23-31); Chloride 100 mmol/L (98-107); Estimated GFR-MDRD 71; Glucose 289 mg/dL (80-115); Potassium 3.6 mmol/L (3.5-5.1); Sodium 136 mmol/L (136-145)
[2018-09-03] MEDS ORDERED: Azithromycin 500 MG in Sodium Chloride 0.9% 250 ML 250 ML IVPB SCH (16:00)
[2018-09-03] MEDS ORDERED: Dextrose 5% in Water 1,000 ML IV PRN (16:16)
[2018-09-03] MEDS ORDERED: Dextrose 50% Abboject 50 ML SYRINGE SLOW IVP PRN (16:16)
[2018-09-03] MEDS ORDERED: Furosemide 40 MG/4 ML VIAL SLOW IVP SCH (16:30)
[2018-09-03 16:53] VITALS: BMI 26.9
[2018-09-03] MEDS: glipiZIDE 10 MG TAB PO SCH (17:41)
[2018-09-03] MEDS: HumaLOG 300 UNITS/3 ML VIAL SC PRN ×2 (17:48→20:16)
[2018-09-03 18:04] LABS: Lactic Acid 1.5 mmol/L (0.5-2.2)
[2018-09-03] MEDS: hydrALAZINE 25 MG TAB PO SCH (20:15)
[2018-09-03] MEDS: Insulin Glargine 45 UNITS in Pre-Filled Syringe 1 EACH SC SCH (20:15)
[2018-09-03] MEDS: Atorvastatin Calcium 20 MG TAB PO SCH (20:15)
[2018-09-03] MEDS: guaiFENesin ER 600 MG TAB PO SCH (20:15)
[2018-09-03] MEDS ORDERED: Non-Formulary Item 1 EACH (Levemir Flexpen [Levemir Flexpen] 45 UNIT) SC SCH (21:00)
[2018-09-04] MEDS ORDERED: traMADol HCl 50 MG TAB PO PRN (05:11)
[2018-09-04 07:24] LABS: #Eosinphils 0.2 thou/uL (0.0-0.7); #Lymphocytes 1.1 thou/uL (1.20-3.40); #Monocytes 0.7 thou/uL (0.11-0.59); #Neutrophils 6.8 thou/uL (1.40-6.50); %Basophils 0.5 % (0.0-1.0); %Eosinophils 2.7 % (0.0-10.0); %Lymphocytes 12.2 % (21.0-51.0); %Monocytes 7.6 % (0.0-10.0); %Neutrophils 77.1 % (42.0-75.0); Hemoglobin 13.1 g/dL (14.0-18.0); Mean Corpuscular HGB CONC 33.3 g/dL (32.0-36.0); Mean Corpuscular Hemoglobin 30.2 pg (27.0-31.0); Mean Corpuscular Volume 90.7 fL (78.0-98.0); Mean Platelet Volume 8.3 fL (7.4-10.4); Platelet Count 210 thou/uL (130-400); RBC Distribution Width 12.1 % (11.5-14.5); Red Blood Cell (RBC) Count 4.33 mill/uL (4.70-6.10); White Blood Cell (WBC) Count 8.8 thou/uL (4.8-10.8)
[2018-09-04] MEDS: Insulin Glargine 45 UNITS in Pre-Filled Syringe 1 EACH SC SCH ×2 (09:13→20:26)
[2018-09-04] MEDS: guaiFENesin ER 600 MG TAB PO SCH ×2 (09:14→20:26)
[2018-09-04] MEDS: Enoxaparin Sodium 40 MG/0.4 ML SYRINGE SC SCH (09:14)
[2018-09-04] MEDS: Amlodipine 10 MG TAB PO SCH (09:14)
[2018-09-04] MEDS: hydrALAZINE 25 MG TAB PO SCH ×2 (09:14→20:26)
[2018-09-04] MEDS: Furosemide 20 MG TAB PO SCH (09:14)
[2018-09-04] MEDS: Doxazosin 2 MG TAB PO SCH (09:14)
[2018-09-04] MEDS: Famotidine 20 MG TAB PO SCH (09:14)
[2018-09-04] MEDS: glipiZIDE 10 MG TAB PO SCH ×2 (09:14→17:52)
--- NOTE | 2018-09-04 10:32 | PDOC.EVN ---
Event Note - Event Note Event Note: H&P dictated yesterday but still not available. Dictation # [id number].
--- NOTE | 2018-09-04 10:33 | PDOC.PN ---
- Subjective Encounter Start Date: 09/04/18 Encounter Start Time: 10:32 Subjective: feels tired but main complaint is only about food -: wants a regular diet & not diabetic-education provided -: no CP/SOB.mild productive cough w yellow sputum - Objective Resuscitation Status - Order Detail: 09/03/18 16:23 Resuscitation Status Routine Resuscitation Status: FULL: Full Resuscitation Discussed with: discussed w pt MAR Reviewed: Yes Vital Signs & Weight: Vital Signs (12 hours) Temp Pulse Resp BP Pulse Ox 09/04/18 08:00 91 L 09/04/18 07:29 98.0 F 78 18 158/80 H 91 L 09/04/18 04:00 97.5 F L 80 18 162/85 H 95 09/04/18 00:35 98.6 F 75 18 146/79 H 93 L Weight Weight 198 lb 6 oz I&O: 09/03/18 09/04/18 09/05/18 06:59 06:59 06:59 Intake Total 440 Output Total 850 Balance -410 Result Diagrams: 09/04/18 06:22 09/03/18 14:34 Additional Labs: Accuchecks 09/04/18 09/03/18 09/03/18 04:34 19:47 17:18 POC Glucose 140 H 264 H 223 H Microbiology 09/03/18 14:34 Venous blood - Right Hand Blood Culture - Preliminary Specimen has been received and culture in progress. No Growth to date. 09/03/18 14:34 Venous blood - Left Hand Blood Culture - Preliminary Specimen has been received and culture in progress. No Growth to date. Laboratory Tests 09/03/18 09/03/18 10:42 17:38 Lactic Acid 2.3 H 1.5 Phys Exam - Physical Examination Constitutional: NAD HEENT: PERRLA, moist MMs, sclera anicteric, oral pharynx no lesions Neck: no nodes, no JVD, supple, full ROM Respiratory: no wheezing, no rales, no rhonchi, clear to auscultation bilateral Cardiovascular: RRR, no significant murmur, no rub Gastrointestinal: soft, non-tender, no distention, positive bowel sounds Musculoskeletal: no edema, pulses present Neurological: non-focal, normal sensation, moves all 4 limbs Psychiatric: normal affect, A&O x 3 Skin: no rash Dx/Plan (1) CAP (community acquired pneumonia) Code(s): J18.9 - PNEUMONIA, UNSPECIFIED ORGANISM Status: Acute (2) DM2 (diabetes mellitus, type 2) Status: Chronic Qualifiers: Diabetes mellitus complication status: with hyperglycemia (3) H/O: CVA (cerebrovascular accident) Code(s): Z86.73 - PRSNL HX OF TIA (TIA), AND CEREB INFRC W/O RESID DEFICITS Status: Chronic (4) HLD (hyperlipidemia) Code(s): E78.5 - HYPERLIPIDEMIA, UNSPECIFIED Status: Chronic (5) HTN (hypertension) Code(s): I10 - ESSENTIAL (PRIMARY) HYPERTENSION Status: Chronic Qualifiers: Hypertension type: essential hypertension Qualified Code(s): I10 - Essential (primary) hypertension - Plan continue antibiotics, respiratory therapy, incentive spirometry, out of bed/ ambulate, DVT proph w/SCDs cont IV ABx.blood Cx Negative so far.no evidence of sepsis -: WBC counts trending down.HD stable.clinically better -: cont home meds as below -[facility]. * . Review of Systems - Review of Systems Constitutional: weakness, malaise. negative: fever, chills, sweats, other Respiratory: Cough. negative: Dry, Shortness of Breath, Hemoptysis, SOB with Excertion, Pleuritic Pain, Sputum, Wheezing Cardiovascular: negative: chest pain, palpitations, orthopnea, paroxysmal nocturnal dyspnea, edema, light headedness, other Gastrointestinal: negative: Nausea, Vomiting, Abdominal Pain, Diarrhea, Constipation, Melena, Hematochezia, Other Genitourinary: negative: Dysuria, Frequency, Incontinence, Hematuria, Retention , Other Musculoskeletal: negative: Neck Pain, Shoulder Pain, Arm Pain, Back Pain, Hand Pain, Leg Pain, Foot Pain, Other Skin: negative: Rash, Lesions, Usman, Bruising, Other Neurological: negative: Weakness, Numbness, Incoordination, Change in Speech, Confusion, Seizures, Other - Medications/Allergies Allergies/Adverse Reactions: Allergies Allergy/AdvReac Type Severity Reaction Status Date / Time aspartame Allergy Rash Verified 09/03/18 17:00 [From Konsyl Sugar-Free (aspartame)] codeine Allergy Verified 09/03/18 17:00 Penicillins Allergy Verified 09/03/18 17:00 Medications: Current Medications Acetaminophen (Tylenol) 650 mg PO Q4H PRN PRN Reason: Headache/Fever/Mild Pain (1-3) Albuterol/Ipratropium (Duoneb) 3 ml NEB Q6H PRN PRN Reason: SOB &/or Wheezing Alogliptin Benzoate (Alogliptin) 25 mg PO HS [facility] Amlodipine Besylate (Norvasc) 10 mg PO DAILY [facility] Last Admin: 09/04/18 09:14 Dose: 10 mg Atorvastatin Calcium (Lipitor) 20 mg PO HS [facility] Last Admin: 09/03/18 20:15 Dose: 20 mg Benzonatate (Tessalon) 100 mg PO Q6H PRN PRN Reason: Cough Bisacodyl (Dulcolax) 10 mg PO DAILYPRN PRN PRN Reason: Constipation Clonidine (Catapres) 0.1 mg PO Q4H PRN PRN Reason: SBP > _160___ Dextrose/Water (Dextrose 50%) 25 gm SLOW IVP PRN PRN PRN Reason: Hypoglycemia Doxazosin Mesylate (Cardura) 4 mg PO DAILY [facility] Last Admin: 09/04/18 09:14 Dose: 4 mg Enoxaparin Sodium (Lovenox) 40 mg SC 0900 [facility] Last Admin: 09/04/18 09:14 Dose: 40 mg Famotidine (Pepcid) 20 mg PO DAILY [facility] Last Admin: 09/04/18 09:14 Dose: 20 mg Furosemide (Lasix) 20 mg PO DAILY [facility] Last Admin: 09/04/18 09:14 Dose: 20 mg Glipizide (Glucotrol) 10 mg PO BID-[facility] Last Admin: 09/04/18 09:14 Dose: 10 mg Glucagon (Glucagon) 1 mg IM PRN PRN PRN Reason: Hypoglycemia Guaifenesin (Mucinex) 600 mg PO Q12HR [facility] Last Admin: 09/04/18 09:14 Dose: 600 mg Hydralazine HCl (Apresoline) 10 mg SLOW IVP Q4H PRN PRN Reason: SBP > 180 and HR < 70 Hydralazine HCl (Apresoline) 50 mg PO BID [facility] Last Admin: 09/04/18 09:14 Dose: 50 mg Levofloxacin 500 mg/ Device 100 mls @ 100 mls/hr IVPB 1700 [facility] Last Admin: 09/03/18 17:46 Dose: 100 mls Dextrose/Water (D5w) 1,000 mls @ 0 mls/hr IV .Q0M PRN PRN Reason: Hypoglycemia Insulin Glargine 45 units/ (Miscellaneous Medication) 0.45 mls @ 0 mls/hr SC BID [facility] Last Admin: 09/04/18 09:13 Dose: 0.45 mls Insulin Human Lispro (Humalog) 0 units SC .MODERATE SLIDING SC PRN PRN Reason: Moderate Correctional Scale Last Admin: 09/03/18 17:48 Dose: 4 unit Insulin Human Lispro (Humalog) 0 units SC .BEDTIME SLIDING SC PRN PRN Reason: Bedtime Correctional Scale Last Admin: 09/03/18 20:16 Dose: 3 unit Nitroglycerin (Nitrostat) 0.4 mg SL Q5MIN PRN PRN Reason: Chest Pain Repaglinide (Prandin) 1 mg PO BID-[facility] Last Admin: 09/04/18 09:14 Dose: 1 mg Senna/Docusate Sodium (Senokot S) 2 tab PO BID PRN PRN Reason: Constipation Tramadol HCl (Ultram) 50 mg PO Q6H PRN PRN Reason: Mild Pain (1-3) 2ND LINE Last Admin: 09/04/18 05:28 Dose: 50 mg
--- NOTE | 2018-09-04 11:09 | HP ---
PRIMARY CARE PHYSICIAN: Dr. Mera. CHIEF COMPLAINT: Cough and chest pain secondary to excessive coughing. HISTORY OF PRESENT ILLNESS: Mr. Milner is a 67-year-old male with past medical history of hypertension, diabetes, benign prostatic hypertrophy, and hyperlipidemia, who presented to the emergency room with the above-mentioned complaint. History is mainly obtained the patient himself was a very poor historian. Electronic medical records have been reviewed and the case has been discussed with admitting ER physician. According to Mr. Milner, he has been having excessive coughing for 2 or 3 days and resultant chest pain. He has been having some chills without any fever. He also notices increase in lower extremity swelling and weeping. He called the EMS and was brought to the emergency room. Because of his complaints of chest pain, he got nitroglycerin sublingual as well as aspirin. Upon presentation to the emergency room, he was hemodynamically stable with a heart rate of 100, blood pressure 164/87, temperature 99.4, and saturating 100% on room air. He underwent a chest x-ray, which did not have any abnormalities. His EKG showed left ventricular hypertrophy. He also underwent a CT angio of his thorax for some reason, which was negative for pulmonary embolism, but showed possible consolidation bilaterally. He was given empiric IV antibiotics and is now being admitted to the medical floor for pneumonia. Serial cardiac enzymes are done and negative x3. ACS has been ruled out in the ER. His lactic acid is also elevated to 2.3 making pneumonia the most likely diagnosis. PAST MEDICAL HISTORY: 1. Hypertension. 2. Dyslipidemia. 3. BPH. 4. Chronic venous insufficiency as per the patient. 5. Diabetes mellitus. 6. History of CVA. 7. Osteoarthritis. PAST SURGICAL HISTORY: Cataract surgery. ALLERGIES: PENICILLIN, CABBAGE, , AND ASPARTAME. FAMILY HISTORY: Significant for CVA and diabetes mellitus. SOCIAL HISTORY: He is a nonsmoker, nondrinker, and lives with his sister. He walks around with the help of a cane. He did have a fall 2 weeks ago walking in his yard. HOME MEDICATIONS: 1. Lasix 20 mg daily. 2. Levemir 45 units b.i.d. 3. Hydralazine 50 b.i.d. 4. Amlodipine 10 daily. 5. Januvia 100 mg daily. 6. Repaglinide 1 mg . 7. Doxazosin 4 mg daily. 8. Glucotrol 10 mg p.o. b.i.d. 9. Lipitor 20 mg daily. REVIEW OF SYSTEMS: A 12-point review of system is done and is negative except for those mentioned in the history and physical. LABORATORY DATA: CBC shows WBCs of 12.7 with 81% neutrophils. Serum chemistries; creatinine 1.42 with a repeat creatinine of 1.23. Troponin less than 0.010 x3. BNP less than 10. Lactic acid 2.3. Chest x-ray by my review shows no evidence of pulmonary edema or consolidation. CT angio shows possible bilateral consolidation. PHYSICAL EXAMINATION: VITAL SIGNS: Upon presentation to the emergency room, oxygen saturation 100% on room air, temperature 99.4, respirations 20, and blood pressure 164/87. GENERAL: No acute distress. He is sitting at the edge of the bed. Awake, alert, and oriented x3. HEENT: Mucous membranes moist and pink. No oropharyngeal exudate or erythema. Head is normocephalic, atraumatic. Pupils equal, reactive to light and accommodation. Extraocular movement intact. NECK: Supple without any lymphadenopathy, JVD, or bruit. CHEST: Negative for any wheezing, rales, or rhonchi. He has reduced breath sounds at bases. CARDIAC: Rate and rhythm are regular without any murmurs, rubs, or gallops. ABDOMEN: Soft, nontender, nondistended. EXTREMITIES: Show bilateral +2 pitting edema. He has a 2 x 2 cm wound on the right anterior sullivan with serous drainage. NEUROLOGICAL: Nonfocal. SKIN: Free of any rashes or bruises. Feels warm and dry to touch. PSYCHIATRIC: Normal affect. IMPRESSION AND PLAN: 1. Community-acquired pneumonia. The patient will be treated with empiric IV antibiotics. Blood cultures have been obtained. We will follow the result. We will repeat the lactic acid. He does not have evidence of sepsis at this time. Continue oxygen as necessary and nebs as needed. 2. Lower extremity edema, most likely chronic venous insufficiency. We will also obtain a transthoracic echocardiogram. His last one was done in 2016 and he reports that he follows up with Dr. Calvo in the outpatient setting and recently had some sort of blood circulation study for his legs. We will give him one dose of IV Lasix and restart his home Lasix. 3. Diabetes mellitus. Restart his home medication and add insulin sliding scale with frequent Accu-Cheks. 4. Hypertension. Restart his home medications as dictated above. 5. Deep venous thrombosis and gastrointestinal prophylaxis. 6. Code status. Full code discussed with the patient. 7. Add p.r.n. medications. DISPOSITION: Mr. Milner is currently being admitted to the hospital for community-acquired pneumonia and resultant chest pain. ACS has been ruled out with serial cardiac enzymes. He is currently hemodynamically stable. Job ID: [id number]
[2018-09-04] MEDS: HumaLOG 300 UNITS/3 ML VIAL SC PRN ×3 (12:20→20:27)
--- NOTE | 2018-09-04 12:22 | ULT ---
BILATERAL LOWER EXTREMITY VENOUS DOPPLER ULTRASOUND: Date: 09/04/18 HISTORY: Bilateral lower extremity pain and edema. TECHNIQUE: Hamilton scale ultrasound with color flow and spectral Doppler imaging of the deep venous systems of the lower extremities was performed bilaterally. FINDINGS: There is good flow, compression, and augmentation noted in the common femoral, femoral, deep femoral, popliteal, posterior tibial, and greater saphenous veins on either side. IMPRESSION: No evidence of deep venous thrombosis in either lower extremity. POS: [facility]
[2018-09-04] MEDS: Atorvastatin Calcium 20 MG TAB PO SCH (20:26)
[2018-09-04] MEDS ORDERED: Alogliptin 25 MG TAB PO SCH (21:00)
[2018-09-05] MEDS: Amlodipine 10 MG TAB PO SCH (08:35)
[2018-09-05] MEDS: Doxazosin 2 MG TAB PO SCH (08:36)
[2018-09-05] MEDS: Furosemide 20 MG TAB PO SCH (08:36)
[2018-09-05] MEDS: guaiFENesin ER 600 MG TAB PO SCH (08:36)
[2018-09-05] MEDS: hydrALAZINE 25 MG TAB PO SCH (08:36)
[2018-09-05] MEDS: glipiZIDE 10 MG TAB PO SCH (08:36)
[2018-09-05] MEDS: Famotidine 20 MG TAB PO SCH (08:36)
[2018-09-05] MEDS: Enoxaparin Sodium 40 MG/0.4 ML SYRINGE SC SCH (08:37)
[2018-09-05] MEDS: Insulin Glargine 45 UNITS in Pre-Filled Syringe 1 EACH SC SCH (08:37)
[2018-09-05] MEDS ORDERED: Saccharomyces boulardii 250 MG CAP PO SCH (09:00)
[2018-09-05 11:34] VITALS: BP 104/75; TEMP 98.8
--- NOTE | 2018-09-05 12:54 | DIS ---
DATE OF ADMISSION: 09/03/2018 DATE OF DISCHARGE: 09/05/2018 PRIMARY CARE PHYSICIAN: COMFORT Hood DISCHARGE DISPOSITION: Home. DISCHARGE DIAGNOSES: 1. Community-acquired pneumonia. 2. Chest pain secondary to #1 and excessive coughing, else ruled out. 3. Diabetes mellitus type 2. 4. History of cerebrovascular accident. 5. Hypertension. 6. Dyslipidemia. DISCHARGE MEDICATIONS: As follows; 1. Levofloxacin 500 mg p.o. daily for seven more days. 2. Florastor 250 mg daily for 10 days. 3. DuoNeb every 6 hours as needed for shortness of breath and wheezing. 4. Tessalon Perles. 5. Mucinex 600 mg p.o. b.i.d. for five days and resume home medications as per the admission H and P. Please see H and P for home medication list. PROCEDURES DONE IN THE HOSPITAL: Chest x-ray upon presentation, which was negative for any acute changes. CT angio of the chest, which was negative for any pulmonary embolism but did show patchy consolidative changes in both lower lobes with the possibility of pneumonia. Transthoracic echocardiogram, which shows EF of 50% to 55%. HISTORY OF PRESENTING ILLNESS: Mr. Milner is a 67-year-old male with past medical history of diabetes, hypertension, and dyslipidemia, who presented to the ER with complaints of excessive cough and some shortness of breath with subjective chills and no fevers. He also had complaints of chest pain upon presentation because of the excessive coughing. Serial cardiac enzymes were done in the emergency room, which were unremarkable. His EKG had no changes to suggest ACS. His CT angio did mention the possibility of pneumonia. He was hemodynamically stable. He was admitted to medical floor with a presumptive diagnosis of community-acquired pneumonia. Please see admission history and physical for further details. HOSPITAL COURSE: The patient had an uneventful hospital course. He recovered clinically quickly. He was started on IV antibiotics and cultures were sent, which were negative till date. His leukocytosis, which was 12.7 upon presentation, improved to 8.8 upon discharge. He did undergo echocardiogram given his complaints of nonspecific pain in the chest, which was unremarkable. As of this morning, he is eager to go home and is back to his baseline. His main complaint in the hospital was the diabetic diet that was prescribed for him. I have seen and examined the patient prior to his discharge. PHYSICAL EXAMINATION: VITAL SIGNS: This morning, temperature 98.8, pulse of 96, respirations 18, saturating 94% on room air, blood pressure 104/74. GENERAL: No acute distress. CHEST: Clear to auscultation bilaterally without any wheezing, rales or rhonchi. HEART: Rate and rhythm are regular. EXTREMITIES: Free of any cyanosis, clubbing, or edema. LABORATORY DATA: Pending labs at the time of discharge. Blood cultures have been negative till date. He is instructed to follow up with his primary care physician and take his medications as prescribed. Total time spent in discharge of this patient 32 minutes. Job ID: [id number]
== END 2018-09-05 12:56 | disposition home or self-care (01) | DRG 195 ==
LOC: ERS 09:58 → T4-A 14:06
PROVIDERS: ADMIT Internal Medicine; ATTEND Internal Medicine
DX: J18.9 Pneumonia, unspecified organism (principal); I10 Essential (primary) hypertension; E11.65 Type 2 diabetes mellitus with hyperglycemia; E78.5 Hyperlipidemia, unspecified; Z88.5 Allergy status to narcotic agent; Z88.0 Allergy status to penicillin; K21.9 Gastro-esophageal reflux disease without esophagitis; Z88.8 Allergy status to other drugs, medicaments and biological substances; I87.2 Venous insufficiency (chronic) (peripheral); N40.0 Benign prostatic hyperplasia without lower urinary tract symptoms; M19.90 Unspecified osteoarthritis, unspecified site; Z79.84 Long term (current) use of oral hypoglycemic drugs; Z86.73 Personal history of transient ischemic attack (TIA), and cerebral infarction without residual deficits; Z98.49 Cataract extraction status, unspecified eye; Z79.899 Other long term (current) drug therapy
CPT/HCPCS: 36415; 36416; 71045; 71275; 80053; 83036; 83605; 83880; 84484; 85025; 87040; 93005; 93306; 93970; 96365; J0456; J0696; J1650; J1940; J1956; J7050

== ENCOUNTER 2018-09-29 10:52 | Emergency (ER) | payer MEDICARE ==
[2018-09-29 14:15] LABS: #Basophils 0.1 thou/uL (0.0-0.2); #Eosinphils 0.4 thou/uL (0.0-0.7); #Lymphocytes 1.4 thou/uL (1.20-3.40); #Monocytes 0.5 thou/uL (0.11-0.59); #Neutrophils 4.2 thou/uL (1.40-6.50); %Basophils 0.8 % (0.0-1.0); %Eosinophils 6.5 % (0.0-10.0); %Lymphocytes 21.3 % (21.0-51.0); %Monocytes 7.7 % (0.0-10.0); %Neutrophils 63.7 % (42.0-75.0); Hemoglobin 14.1 g/dL (14.0-18.0); Mean Corpuscular Hemoglobin 28.4 pg (27.0-31.0); Mean Corpuscular Volume 88.6 fL (78.0-98.0); Mean Platelet Volume 7.1 fL (7.4-10.4); Platelet Count 213 thou/uL (130-400); RBC Distribution Width 12.5 % (11.5-14.5); Red Blood Cell (RBC) Count 4.96 mill/uL (4.70-6.10); White Blood Cell (WBC) Count 6.6 thou/uL (4.8-10.8)
--- NOTE | 2018-09-29 14:46 | RAD ---
RIGHT TIBIA AND FIBULA TWO VIEWS: HISTORY: Ulcers and pain. Hyperglycemia. COMPARISON: None. FINDINGS: Vascular calcifications are noted. No fracture. No cortical irregularity. No periosteal reaction. IMPRESSION: 1. No fracture. 2. No radiographic evidence of erosive or destructive changes. POS: [facility]
[2018-09-29 14:47] LABS: ALT (SGPT) 15 U/L (8-55); AST (SGOT) 12 U/L (5-34); Albumin 4.2 g/dL (3.4-4.8); Alkaline Phosphatase 101 U/L (40-150); Anion Gap 15 mmol/L (10-20); BUN (Urea Nitrogen) 15 mg/dL (8.4-25.7); Bilirubin, Total 0.6 mg/dL (0.2-1.2); Calc. Creatinine Clearance 0 mL/min (70-130); Calcium 10.9 mg/dL (7.8-10.44); Carbon Dioxide 22 mmol/L (23-31); Chloride 101 mmol/L (98-107); Estimated GFR-MDRD 63; Globulin 3.6 g/dL (2.4-3.5); Glucose 304 mg/dL (80-115); Potassium 4.1 mmol/L (3.5-5.1); Protein, Total 7.8 g/dL (5.8-8.1); Sodium 134 mmol/L (136-145)
[2018-09-29] MEDS ORDERED: traMADol HCl 50 MG TAB ONE (15:05)
== END 2018-09-29 15:10 | disposition home or self-care (01) ==
LOC: ERS 10:52
DX: I83.018 Varicose veins of right lower extremity with ulcer other part of lower leg (principal); L03.115 Cellulitis of right lower limb; I10 Essential (primary) hypertension; E11.9 Type 2 diabetes mellitus without complications; E78.5 Hyperlipidemia, unspecified; K21.9 Gastro-esophageal reflux disease without esophagitis
CPT/HCPCS: 36415; 80053; 85025

== ENCOUNTER 2018-10-10 09:36 | Emergency (ER) | payer MEDICARE ==
[2018-10-10] MEDS ORDERED: methylPREDNISolone Sod Succ/PF 125 MG/2 ML VIAL ONE (09:50)
== END 2018-10-10 10:36 | disposition home or self-care (01) ==
LOC: ERS 09:36
DX: L29.9 Pruritus, unspecified (principal); T36.1X5A Adverse effect of cephalosporins and other beta-lactam antibiotics, initial encounter; K21.9 Gastro-esophageal reflux disease without esophagitis; E11.9 Type 2 diabetes mellitus without complications; E78.5 Hyperlipidemia, unspecified; Z79.899 Other long term (current) drug therapy
CPT/HCPCS: 96374; J2930

== ENCOUNTER 2018-10-26 15:32 | Emergency (ER) | payer MEDICARE ==
[~2018-10-26 15:32] MED LIST: ISOVUE-370 76%-LOCM 1 ML ONE
[2018-10-26 17:12] LABS: #Eosinphils 0.7 thou/uL (0.0-0.7); #Lymphocytes 1.1 thou/uL (1.20-3.40); #Monocytes 0.6 thou/uL (0.11-0.59); #Neutrophils 6.8 thou/uL (1.40-6.50); %Basophils 0.4 % (0.0-1.0); %Eosinophils 7.3 % (0.0-10.0); %Lymphocytes 12.3 % (21.0-51.0); %Monocytes 6.4 % (0.0-10.0); %Neutrophils 73.6 % (42.0-75.0); Hemoglobin 12.8 g/dL (14.0-18.0); Mean Corpuscular Hemoglobin 29.5 pg (27.0-31.0); Mean Corpuscular Volume 89.4 fL (78.0-98.0); Mean Platelet Volume 7.2 fL (7.4-10.4); Platelet Count 212 thou/uL (130-400); RBC Distribution Width 12.4 % (11.5-14.5); Red Blood Cell (RBC) Count 4.33 mill/uL (4.70-6.10); White Blood Cell (WBC) Count 9.3 thou/uL (4.8-10.8)
--- NOTE | 2018-10-26 17:21 | ULT ---
RIGHT LOWER EXTREMITY VENOUS ULTRASOUND 10/26/18 HISTORY: Right lower extremity edema. TECHNIQUE: Multiplanar redd scale and color doppler images are obtained in a right lower extremity venous ultras ound. Spectral analysis of the doppler waveforms were performed. FINDINGS: The right common femoral vein, profunda femoral vein, superficial femoral vein, and popliteal vein ar e normal in appearance without visible thrombus. These vessels demonstrate normal compression, flow a nd augmentation. The posterior tibial vein and greater saphenous vein are also patent. IMPRESSION: No evidence of right lower extremity DVT. POS: [facility]
[2018-10-26 17:33] LABS: Anion Gap 14 mmol/L (10-20); BUN (Urea Nitrogen) 19 mg/dL (8.4-25.7); Calc. Creatinine Clearance 0 mL/min (70-130); Calcium 10.4 mg/dL (7.8-10.44); Carbon Dioxide 26 mmol/L (23-31); Chloride 101 mmol/L (98-107); Estimated GFR-MDRD 53; Glucose 344 mg/dL (80-115); Sodium 137 mmol/L (136-145)
--- NOTE | 2018-10-26 19:21 | CT ---
CT OF RIGHT HIP PERFORMED WITHOUT CONTRAST ENHANCEMENT: History: Right leg pain. Wound in the right lower leg. Hip pain. FINDINGS: There are very mild arthritic changes of the hip. There are no signs of fracture. Bony mineralization appears normal. I do not appreciate any hip joint effusion or any type of bony erosive change that w ould suggest a septic hip. This would be better evaluated with MRI. The prostate appears slightly enlarged. Visualized intrapelvic contents are otherwise unremarkable. IMPRESSION: Mild arthritic changes of the right hip. No acute findings. POS: [facility]
== END 2018-10-26 18:53 | disposition home or self-care (01) ==
LOC: ERS 15:32
DX: M79.661 Pain in right lower leg (principal); S80.922A Unspecified superficial injury of left lower leg, initial encounter; K21.9 Gastro-esophageal reflux disease without esophagitis; E11.9 Type 2 diabetes mellitus without complications; E78.5 Hyperlipidemia, unspecified; Z79.899 Other long term (current) drug therapy; Z79.84 Long term (current) use of oral hypoglycemic drugs
CPT/HCPCS: 36415; 80048; 85025; 85379; 85652; 86140; Q9966

== ENCOUNTER 2019-01-09 15:38 | Inpatient (IN) | payer MEDICARE ==
[2019-01-09 17:43] LABS: #Eosinphils 0.3 thou/uL (0.0-0.7); #Lymphocytes 1.4 thou/uL (1.20-3.40); #Monocytes 0.5 thou/uL (0.11-0.59); %Basophils 0.5 % (0.0-1.0); %Eosinophils 4.3 % (0.0-10.0); %Lymphocytes 19.1 % (21.0-51.0); %Monocytes 7.4 % (0.0-10.0); %Neutrophils 68.7 % (42.0-75.0); Hemoglobin 12.6 g/dL (14.0-18.0); Mean Corpuscular HGB CONC 32.6 g/dL (32.0-36.0); Mean Corpuscular Hemoglobin 29.5 pg (27.0-31.0); Mean Corpuscular Volume 90.4 fL (78.0-98.0); Mean Platelet Volume 7.1 fL (7.4-10.4); Platelet Count 218 thou/uL (130-400); RBC Distribution Width 12.6 % (11.5-14.5); Red Blood Cell (RBC) Count 4.26 mill/uL (4.70-6.10); White Blood Cell (WBC) Count 7.3 thou/uL (4.8-10.8)
[2019-01-09 18:05] LABS: ALT (SGPT) 15 U/L (8-55); AST (SGOT) 14 U/L (5-34); Albumin 3.8 g/dL (3.4-4.8); Alkaline Phosphatase 114 U/L (40-150); Anion Gap 12 mmol/L (10-20); BUN (Urea Nitrogen) 16 mg/dL (8.4-25.7); Bilirubin, Total 0.4 mg/dL (0.2-1.2); Calc. Creatinine Clearance 0 mL/min (70-130); Calcium 9.6 mg/dL (7.8-10.44); Carbon Dioxide 27 mmol/L (23-31); Chloride 100 mmol/L (98-107); Estimated GFR-MDRD 64; Globulin 3.2 g/dL (2.4-3.5); Glucose 340 mg/dL (80-115); Potassium 3.9 mmol/L (3.5-5.1); Sodium 135 mmol/L (136-145)
[2019-01-10 00:14] VITALS: BMI 27.6
[2019-01-10] MEDS ORDERED: Acetaminophen 325 MG TAB PO PRN (01:32)
[2019-01-10] MEDS ORDERED: Ondansetron PF 4 MG/2 ML Vial IVP PRN (01:32)
[2019-01-10] MEDS ORDERED: Ondansetron ODT 4 MG TAB PO PRN (01:32)
[2019-01-10 05:25] LABS: #Eosinphils 0.3 thou/uL (0.0-0.7); #Lymphocytes 1.5 thou/uL (1.20-3.40); #Monocytes 0.5 thou/uL (0.11-0.59); #Neutrophils 3.8 thou/uL (1.40-6.50); %Basophils 0.6 % (0.0-1.0); %Eosinophils 4.5 % (0.0-10.0); %Lymphocytes 25.1 % (21.0-51.0); %Monocytes 7.9 % (0.0-10.0); %Neutrophils 61.9 % (42.0-75.0); Hemoglobin 12.4 g/dL (14.0-18.0); Mean Corpuscular HGB CONC 31.4 g/dL (32.0-36.0); Mean Corpuscular Hemoglobin 28.2 pg (27.0-31.0); Mean Corpuscular Volume 89.9 fL (78.0-98.0); Mean Platelet Volume 7.2 fL (7.4-10.4); Platelet Count 217 thou/uL (130-400); RBC Distribution Width 12.6 % (11.5-14.5); Red Blood Cell (RBC) Count 4.39 mill/uL (4.70-6.10); White Blood Cell (WBC) Count 6.1 thou/uL (4.8-10.8)
[2019-01-10 05:38] LABS: Anion Gap 11 mmol/L (10-20); BUN (Urea Nitrogen) 12 mg/dL (8.4-25.7); Calc. Creatinine Clearance 79 mL/min (70-130); Calcium 9.7 mg/dL (7.8-10.44); Carbon Dioxide 27 mmol/L (23-31); Chloride 105 mmol/L (98-107); Estimated GFR-MDRD 74; Glucose 280 mg/dL (80-115); Sodium 139 mmol/L (136-145)
[2019-01-10] MEDS ORDERED: Dextrose 50% Abboject 50 ML SYRINGE SLOW IVP PRN (05:51)
[2019-01-10] MEDS ORDERED: Dextrose 5% in Water 1,000 ML IV PRN (05:51)
[2019-01-10] MEDS ORDERED: Morphine 4 MG/ML VIAL SLOW IVP SCH (06:00)
[2019-01-10] MEDS: HumaLOG 300 UNITS/3 ML VIAL SC PRN ×3 (06:14→18:11)
--- NOTE | 2019-01-10 06:44 | HP ---
PRIMARY CARE DOCTOR: Sai Mera MD CODE STATUS: Full code. TIME OF EVALUATION: CHIEF COMPLAINT: Right lower extremity wounds. HISTORY OF PRESENT ILLNESS: This is a 68-year-old male patient with past medical history of GERD, allergic rhinitis, stroke with right-sided weakness as the sequelae, diabetes type 2, hyperlipidemia, came to the hospital after having right lower extremity swelling, redness, multiple nonhealing wounds associated with fever of 100.4. The symptoms started for the past week, not getting better. The symptoms were [id number] associated also with severe pain. REVIEW OF SYSTEMS: CONSTITUTIONAL: Fever, chills, generalized weakness. RESPIRATORY: No cough, sputum production, or shortness of breath. CARDIOVASCULAR: No chest pain, or palpitations. GASTROINTESTINAL: No nausea, vomiting, diarrhea, or abdominal pain. BENDING MACHINE OPERATOR: No dizziness, headache, or feeling lightheaded. GENITOURINARY: No burning with urination. EXTREMITIES: The patient has right lower extremity redness, swelling, tenderness and decreased range of motion. All other systems were reviewed and negative except for the findings mentioned above. PAST MEDICAL HISTORY: As mentioned in the HPI. SURGICAL HISTORY: Cataracts bilaterally. PSYCHIATRIC HISTORY: No previous psychiatric history. SOCIAL HISTORY: No alcohol, no drugs. No smoking history. FAMILY HISTORY: Reviewed and noncontributory for current presentation. KNOWN ALLERGIES: Cephalexin and penicillins. REPORTED MEDICATIONS: 1. Glipizide. 2. Bactrim. 3. Amlodipine. 4. Keflex. 5. Lasix. 6. Hydralazine. 7. Repaglinide. 8. Doxazosin. 9. Atorvastatin. 10. Januvia. 11. Benadryl. PHYSICAL EXAMINATION: VITAL SIGNS: On presentation, blood pressure 127/73 with heart rate 80, respiratory rate was 20, temperature 98.5. Pain 10/10, oxygen saturation 97% on room air. GENERAL APPEARANCE: The patient is alert, oriented, not in any acute distress. HEENT: Eyes normal conjunctivae. Moist oral mucosa. Anicteric. No JVD. RESPIRATORY: Bilateral air entry. No rales. No wheezes. Symmetric expansion. CARDIOVASCULAR: Normal rate. Regular rhythm. No murmurs. No gallop. No edema. ABDOMEN: Soft. Normal bowel sounds. MUSCULOSKELETAL: Baseline range of motion and strength. No tenderness. SKIN: The patient has right lower extremity redness, multiple scattered wounds that are nonhealing, swelling, pain. Peripheral pulses are present. Capillary refill seems to be intact. NEUROLOGIC: No evidence of any new focal weakness. Baseline speech. Cranial nerves seems to be intact. PSYCHIATRIC: Good mood. No anxiety. Optimal judgment. DIAGNOSTIC DATA: EKG was reviewed. The patient has normal sinus rhythm at the rate of 70 with MI 160, QRS 80, and QT corrected 399. LABORATORY DATA: Labs were reviewed. White count 7.3, hemoglobin 12.6, MCV 90.4, platelet count 218. Sodium 135, potassium 3.9, chloride 100, carbon dioxide 27, anion gap 12, BUN 16, creatinine initially 1.35, repeat 1.19, GFR 64 with glucose 240. Lactic acid was normal. Calcium 9.6, total bilirubin 0.4. LFTs were negative. Beta-natriuretic peptide less than 10, and beta hydroxybutyrate was normal. ASSESSMENT AND PLAN: The patient will be placed in the hospital with following medical problems: 1. Right lower extremity cellulitis. The patient has been started on vancomycin. We will follow cultures. We will adjust treatment as per sensitivity. 2. Chronic normocytic anemia. This is stable, can be followed as outpatient. No need for any acute intervention. 3. Hyponatremia, sodium 135, this is mild. This has been corrected, resolved. No need for any further management. 4. Uncontrolled diabetes. Blood sugar 340. The patient with hyperglycemia. We will place the patient on sliding scale, diabetic diet recommended. 5. Gastroesophageal reflux disease, reconcile home medications. 6. Hyperlipidemia, reconcile home medication, cholesterol diet is advised. 7. Deep venous thrombosis prophylaxis. Job ID: [id number]
[2019-01-10] MEDS: hydrALAZINE 25 MG TAB PO SCH ×2 (07:56→20:12)
[2019-01-10] MEDS: Furosemide 20 MG TAB PO SCH (07:57)
[2019-01-10] MEDS: Carvedilol 6.25 MG TAB PO SCH ×2 (07:57→20:12)
[2019-01-10] MEDS: Doxazosin 2 MG TAB PO SCH (07:57)
[2019-01-10] MEDS: Amlodipine 10 MG TAB PO SCH (07:57)
[2019-01-10] MEDS ORDERED: Vancomycin HCl 1 GM in Premix Bag 1 BAG IVPB SCH (10:00)
--- NOTE | 2019-01-10 13:47 | PDOC.PN ---
- Subjective Encounter Start Date: 01/10/19 Encounter Start Time: 13:45 Subjective: Admitted with worsening right leg pain and wounds. -: Had some blisters that recently opeened up. -: Reported some fever. Admitted to bilateral leg edema - Objective Resuscitation Status - Order Detail: 01/10/19 01:32 Resuscitation Status Routine Resuscitation Status: FULL: Full Resuscitation Vital Signs & Weight: Vital Signs (12 hours) Temp Pulse Resp BP BP BP Pulse Ox 01/10/19 11:18 98.1 F 72 17 142/80 H 95 01/10/19 07:57 157/81 H 95 01/10/19 07:56 75 157/81 H 01/10/19 07:41 98.1 F 75 19 157/81 H 95 01/10/19 04:00 98.1 F 84 18 165/83 H 97 Weight Weight 203 lb 5 oz I&O: 01/09/19 01/10/19 01/11/19 06:59 06:59 06:59 Intake Total 0.5 Balance 0.5 Result Diagrams: 01/10/19 04:59 01/10/19 04:59 Additional Labs: Accuchecks 01/10/19 01/10/19 01/10/19 11:34 05:05 00:56 POC Glucose 300 H 259 H 302 H Phys Exam - Physical Examination Constitutional: NAD afebrile. HEENT: PERRLA, moist MMs Neck: no JVD, supple Respiratory: no rhonchi fair air entry with bilbasal crackles. Cardiovascular: RRR soft systolic murmur noted Gastrointestinal: soft, non-tender, no distention, positive bowel sounds Musculoskeletal: pulses present moderate bilateral leg/ankle edema with chronic venous stasis changes awake and conversational. moves all limbs. ambulates with a cane Dx/Plan (1) Cellulitis of right leg Code(s): L03.115 - CELLULITIS OF RIGHT LOWER LIMB Status: Acute (2) Bilateral leg edema Code(s): R60.0 - LOCALIZED EDEMA Status: Acute (3) Wound of right leg Code(s): S81.801A - UNSPECIFIED OPEN WOUND, RIGHT LOWER LEG, INITIAL ENCOUNTER Status: Acute (4) Systolic murmur Code(s): R01.1 - CARDIAC MURMUR, UNSPECIFIED Status: Acute (5) DM2 (diabetes mellitus, type 2) Status: Chronic Qualifiers: Diabetes mellitus complication status: with hyperglycemia (6) H/O: CVA (cerebrovascular accident) Code(s): Z86.73 - PRSNL HX OF TIA (TIA), AND CEREB INFRC W/O RESID DEFICITS Status: Chronic (7) HLD (hyperlipidemia) Code(s): E78.5 - HYPERLIPIDEMIA, UNSPECIFIED Status: Chronic (8) HTN (hypertension) Code(s): I10 - ESSENTIAL (PRIMARY) HYPERTENSION Status: Chronic Qualifiers: Hypertension type: essential hypertension Qualified Code(s): I10 - Essential (primary) hypertension (9) GERD (gastroesophageal reflux disease) Code(s): K21.9 - GASTRO-ESOPHAGEAL REFLUX DISEASE WITHOUT ESOPHAGITIS Status: Acute (10) CKD (chronic kidney disease) stage 3, GFR 30-59 ml/min Code(s): N18.3 - CHRONIC KIDNEY DISEASE, STAGE 3 (MODERATE) Status: Acute (11) JOEL (acute kidney injury) Code(s): N17.9 - ACUTE KIDNEY FAILURE, UNSPECIFIED Status: Acute Comment: Resolving. Creat is returning to baseline (12) Gait instability Code(s): R26.81 - UNSTEADINESS ON FEET Status: Acute - Plan DC IV vanc and start IV clinda -: Get Chest x ray given bibasal crackles and leg edema. -: Get repeat Echo. Start lisinopril and monitor renal function -: analgesic as needed for pain. -: Restart glipizide, get hba1c. Continue sliding scale insulin. * .
[2019-01-10] MEDS ORDERED: Lisinopril 10 MG TAB PO SCH (14:00)
[2019-01-10] MEDS: traMADol HCl 50 MG TAB PO PRN (14:27)
[2019-01-10] MEDS: Clindamycin/D5W 600 MG in Premix Bag 1 BAG IVPB SCH ×2 (14:28→20:13)
--- NOTE | 2019-01-10 14:48 | RAD ---
Exam: Chest 2 views: HISTORY: Bibasilar crackles COMPARISON: 03/03/2018 FINDINGS: Linear parenchymal changes are noted in both lung bases minimally more marked than on the prior study although there is somewhat less optimal inspiration. The mid and upper lung zones are clear. IMPRESSION: Persistent overall stable linear parenchymal changes in both lung bases, nonspecific. This may well r epresent some component of chronic change, and/or subsegmental atelectasis. No confluent lobar pneumonia.
[2019-01-10] MEDS: glipiZIDE 10 MG TAB PO SCH (18:10)
[2019-01-10] MEDS: Atorvastatin Calcium 20 MG TAB PO SCH (20:12)
[2019-01-10] MEDS ORDERED: Ketorolac Tromethamine 30 MG/ML VIAL IVP SCH (21:15)
[2019-01-11] MEDS: Clindamycin/D5W 600 MG in Premix Bag 1 BAG IVPB SCH ×3 (04:24→21:31)
[2019-01-11] MEDS: HumaLOG 300 UNITS/3 ML VIAL SC PRN ×3 (04:24→17:10)
[2019-01-11] MEDS: hydrALAZINE 25 MG TAB PO SCH ×2 (08:24→21:31)
[2019-01-11] MEDS: Carvedilol 6.25 MG TAB PO SCH ×2 (08:25→21:31)
[2019-01-11] MEDS: glipiZIDE 10 MG TAB PO SCH ×2 (08:25→17:09)
[2019-01-11] MEDS: Furosemide 20 MG TAB PO SCH (08:25)
[2019-01-11] MEDS: Amlodipine 10 MG TAB PO SCH (08:26)
[2019-01-11] MEDS: Doxazosin 2 MG TAB PO SCH (08:26)
[2019-01-11 08:34] LABS: Hemoglobin A1c 11.8 % (4.0-6.0)
[2019-01-11] MEDS ORDERED: Lisinopril 10 MG TAB PO SCH (09:00)
[2019-01-11] MEDS ORDERED: Lisinopril 20 MG TAB PO SCH (10:30)
--- NOTE | 2019-01-11 14:12 | PDOC.PN ---
- Subjective Encounter Start Date: 01/11/19 Encounter Start Time: 14:10 Subjective: No new problem -: complaining of the food. -: Swelling is better. No leg drainage. Denied SOB or Chest pain. - Objective Resuscitation Status - Order Detail: 01/10/19 01:32 Resuscitation Status Routine Resuscitation Status: FULL: Full Resuscitation Vital Signs & Weight: Vital Signs (12 hours) Temp Pulse Resp BP BP Pulse Ox 01/11/19 08:35 97.7 F 69 18 135/73 97 01/11/19 08:26 69 135/73 01/11/19 08:25 135/73 01/11/19 08:24 65 135/73 01/11/19 05:15 98.4 F 65 18 147/68 H 96 Weight Admit Weight 203 lb 5 oz Weight 203 lb 5 oz I&O: 01/10/19 01/11/19 01/12/19 06:59 06:59 06:59 Intake Total 0.5 730 Output Total 900 Balance 0.5 -170 Result Diagrams: 01/10/19 04:59 01/10/19 04:59 Additional Labs: Accuchecks 01/11/19 01/10/19 01/10/19 04:20 20:51 17:35 POC Glucose 267 H 207 H 313 H Phys Exam - Physical Examination Constitutional: NAD afebrile HEENT: moist MMs Neck: supple fair air entry with bibasal crackles R>L Cardiovascular: RRR Gastrointestinal: soft, non-tender, positive bowel sounds mild to moderate bilateral leg edema awake and oriented. hard of hearing. Ambulant with a hemiplegic gait Psychiatric: A&O x 3 Dx/Plan (1) Cellulitis of right leg Code(s): L03.115 - CELLULITIS OF RIGHT LOWER LIMB Status: Acute (2) Bilateral leg edema Code(s): R60.0 - LOCALIZED EDEMA Status: Acute (3) Wound of right leg Code(s): S81.801A - UNSPECIFIED OPEN WOUND, RIGHT LOWER LEG, INITIAL ENCOUNTER Status: Acute (4) Systolic murmur Code(s): R01.1 - CARDIAC MURMUR, UNSPECIFIED Status: Acute (5) DM2 (diabetes mellitus, type 2) Status: Chronic Qualifiers: Diabetes mellitus complication status: with hyperglycemia Comment: Uncontrolled with Hba1c of 11.8 (6) H/O: CVA (cerebrovascular accident) Code(s): Z86.73 - PRSNL HX OF TIA (TIA), AND CEREB INFRC W/O RESID DEFICITS Status: Chronic (7) HLD (hyperlipidemia) Code(s): E78.5 - HYPERLIPIDEMIA, UNSPECIFIED Status: Chronic (8) HTN (hypertension) Code(s): I10 - ESSENTIAL (PRIMARY) HYPERTENSION Status: Chronic Qualifiers: Hypertension type: essential hypertension Qualified Code(s): I10 - Essential (primary) hypertension (9) GERD (gastroesophageal reflux disease) Code(s): K21.9 - GASTRO-ESOPHAGEAL REFLUX DISEASE WITHOUT ESOPHAGITIS Status: Acute (10) CKD (chronic kidney disease) stage 3, GFR 30-59 ml/min Code(s): N18.3 - CHRONIC KIDNEY DISEASE, STAGE 3 (MODERATE) Status: Acute (11) JOEL (acute kidney injury) Code(s): N17.9 - ACUTE KIDNEY FAILURE, UNSPECIFIED Status: Acute Comment: Resolving. Creat is returning to baseline (12) Gait instability Code(s): R26.81 - UNSTEADINESS ON FEET Status: Acute - Plan Continue IV clindamysin -: Give aditioanl 40 mg of lasix. -: Awaiting echo. -: DC amlodipine for possibility of it causing leg swelling -: increase lisinopril to 40 mg daily to get BP control. Restart repaglinide * .
[2019-01-11] MEDS ORDERED: Furosemide 40 MG TAB PO SCH (14:15)
[2019-01-11] MEDS: Atorvastatin Calcium 20 MG TAB PO SCH (21:31)
[2019-01-12 06:08] LABS: Anion Gap 10 mmol/L (10-20); BUN (Urea Nitrogen) 14 mg/dL (8.4-25.7); Calc. Creatinine Clearance 81 mL/min (70-130); Calcium 9.6 mg/dL (7.8-10.44); Carbon Dioxide 26 mmol/L (23-31); Chloride 104 mmol/L (98-107); Estimated GFR-MDRD 77; Glucose 198 mg/dL (80-115); Potassium 4.2 mmol/L (3.5-5.1); Sodium 136 mmol/L (136-145)
[2019-01-12] MEDS: Clindamycin/D5W 600 MG in Premix Bag 1 BAG IVPB SCH ×2 (06:20→11:35)
[2019-01-12] MEDS: HumaLOG 300 UNITS/3 ML VIAL SC PRN ×2 (06:25→11:35)
[2019-01-12 07:44] VITALS: BP 119/79; TEMP 98.6
[2019-01-12] MEDS: glipiZIDE 10 MG TAB PO SCH (08:17)
[2019-01-12] MEDS: hydrALAZINE 25 MG TAB PO SCH (08:17)
[2019-01-12] MEDS: Doxazosin 2 MG TAB PO SCH (08:17)
[2019-01-12] MEDS: Furosemide 20 MG TAB PO SCH (08:17)
[2019-01-12] MEDS: Carvedilol 6.25 MG TAB PO SCH (08:17)
[2019-01-12] MEDS: traMADol HCl 50 MG TAB PO PRN (08:21)
[2019-01-12] MEDS ORDERED: Lisinopril 20 MG TAB PO SCH (09:00)
== END 2019-01-12 15:18 | disposition home health service (06) | DRG 603 ==
LOC: ERS 15:38 → OBSVTOIN 22:40 → T4-A 22:40
PROVIDERS: ADMIT Hospitalist; ATTEND Hospitalist
DX: L03.115 Cellulitis of right lower limb (principal); E87.1 Hypo-osmolality and hyponatremia; N17.9 Acute kidney failure, unspecified; I69.351 Hemiplegia and hemiparesis following cerebral infarction affecting right dominant side; K21.9 Gastro-esophageal reflux disease without esophagitis; E78.5 Hyperlipidemia, unspecified; D64.9 Anemia, unspecified; E11.65 Type 2 diabetes mellitus with hyperglycemia; R01.1 Cardiac murmur, unspecified; N18.3 Chronic kidney disease, stage 3 (moderate); R26.81 Unsteadiness on feet; I12.9 Hypertensive chronic kidney disease with stage 1 through stage 4 chronic kidney disease, or unspecified chronic kidney disease; Z88.0 Allergy status to penicillin; Z88.5 Allergy status to narcotic agent; Z79.899 Other long term (current) drug therapy; Z98.42 Cataract extraction status, left eye; Z98.41 Cataract extraction status, right eye
CPT/HCPCS: 36415; 36416; 71046; 80048; 80053; 82010; 83036; 83605; 83880; 85025; 87040; 93005; 93306; 96365; J1885; J2270; J3370; J3490

== ENCOUNTER 2019-02-01 09:58 | Emergency (ER) | payer MEDICARE ==
[2019-02-01] MEDS ORDERED: Ibuprofen 800 MG TAB ONE (11:48)
[2019-02-01] MEDS ORDERED: traMADol HCl 50 MG TAB ONE (11:55)
[2019-02-01 12:03] LABS: #Eosinphils 0.3 thou/uL (0.0-0.7); #Lymphocytes 1.7 thou/uL (1.20-3.40); #Monocytes 0.5 thou/uL (0.11-0.59); #Neutrophils 3.8 thou/uL (1.40-6.50); %Basophils 0.7 % (0.0-1.0); %Eosinophils 4.3 % (0.0-10.0); %Lymphocytes 27.4 % (21.0-51.0); %Monocytes 7.6 % (0.0-10.0); Hemoglobin 13.6 g/dL (14.0-18.0); Mean Corpuscular HGB CONC 33.5 g/dL (32.0-36.0); Mean Corpuscular Hemoglobin 29.6 pg (27.0-31.0); Mean Corpuscular Volume 88.3 fL (78.0-98.0); Mean Platelet Volume 7.2 fL (7.4-10.4); Platelet Count 204 thou/uL (130-400); RBC Distribution Width 12.4 % (11.5-14.5); Red Blood Cell (RBC) Count 4.61 mill/uL (4.70-6.10); White Blood Cell (WBC) Count 6.3 thou/uL (4.8-10.8)
[2019-02-01 12:24] LABS: ALT (SGPT) 14 U/L (8-55); AST (SGOT) 18 U/L (5-34); Alkaline Phosphatase 87 U/L (40-150); Anion Gap 14 mmol/L (10-20); BUN (Urea Nitrogen) 27 mg/dL (8.4-25.7); Bilirubin, Total 0.6 mg/dL (0.2-1.2); Calc. Creatinine Clearance 0 mL/min (70-130); Calcium 10.2 mg/dL (7.8-10.44); Carbon Dioxide 27 mmol/L (23-31); Chloride 103 mmol/L (98-107); Estimated GFR-MDRD 56; Globulin 2.8 g/dL (2.4-3.5); Glucose 202 mg/dL (80-115); Potassium 4.2 mmol/L (3.5-5.1); Protein, Total 6.8 g/dL (5.8-8.1); Sodium 140 mmol/L (136-145)
--- NOTE | 2019-02-01 12:29 | RAD ---
XR Chest 1 View Portable HISTORY: Cough COMPARISON: 09/03/2018 FINDINGS: The heart size is normal. The lungs are well expanded without focal areas of consolidation, pneumothorax or pleural effusions. IMPRESSION: No radiographic evidence of acute cardiopulmonary process.
--- NOTE | 2019-02-01 12:30 | RAD ---
LEFT KNEE 4 VIEWS: HISTORY: Left knee pain FINDINGS: Tricompartmental degenerative changes are present. No fracture or dislocation or bony destr uction is seen. A joint effusion is present. Vascular calcifications are noted. IMPRESSION: Left knee osteoarthritis.
--- NOTE | 2019-02-01 12:45 | ULT ---
Venous duplex sonogram left lower extremity HISTORY: Left leg pain and edema. FINDINGS: The left common femoral vein and greater saphenous junction were evaluated along with the f emoral, deep femoral, popliteal, and posterior tibial veins. There is good color and spectral Doppler flow, compression, and augmentation. IMPRESSION: No sonographic evidence of DVT within the left lower extremity.
== END 2019-02-01 13:11 | disposition home or self-care (01) ==
LOC: ERS 09:58
DX: M79.605 Pain in left leg (principal); J06.9 Acute upper respiratory infection, unspecified; K21.9 Gastro-esophageal reflux disease without esophagitis; E11.9 Type 2 diabetes mellitus without complications; E78.5 Hyperlipidemia, unspecified; Z79.899 Other long term (current) drug therapy; Z79.84 Long term (current) use of oral hypoglycemic drugs
CPT/HCPCS: 36415; 71045; 80053; 85025

== ENCOUNTER 2019-02-05 11:47 | Emergency (ER) | payer MEDICARE ==
[2019-02-05] MEDS ORDERED: HYDROcodone/Acetaminophen 5/325 mg Tablet ONE (12:17)
== END 2019-02-05 12:15 | disposition home or self-care (01) ==
LOC: ERS 11:47
DX: M25.562 Pain in left knee (principal); K21.9 Gastro-esophageal reflux disease without esophagitis; E11.9 Type 2 diabetes mellitus without complications; E78.5 Hyperlipidemia, unspecified; Z79.84 Long term (current) use of oral hypoglycemic drugs; Z79.899 Other long term (current) drug therapy
CPT/HCPCS: 99283

== ENCOUNTER 2019-02-15 13:02 | Emergency (ER) | payer MEDICARE ==
[2019-02-15] MEDS ORDERED: Ketorolac Tromethamine 30 MG/ML VIAL ONE (13:50)
[2019-02-15 13:59] LABS: #Eosinphils 0.5 thou/uL (0.0-0.7); #Lymphocytes 1.2 thou/uL (1.20-3.40); #Monocytes 0.5 thou/uL (0.11-0.59); #Neutrophils 4.2 thou/uL (1.40-6.50); %Basophils 0.5 % (0.0-1.0); %Eosinophils 7.6 % (0.0-10.0); %Lymphocytes 19.3 % (21.0-51.0); %Monocytes 7.8 % (0.0-10.0); %Neutrophils 64.8 % (42.0-75.0); Hemoglobin 13.1 g/dL (14.0-18.0); Mean Corpuscular Volume 88.2 fL (78.0-98.0); Mean Platelet Volume 8.1 fL (7.4-10.4); Platelet Count 209 thou/uL (130-400); RBC Distribution Width 12.5 % (11.5-14.5); Red Blood Cell (RBC) Count 4.39 mill/uL (4.70-6.10); White Blood Cell (WBC) Count 6.4 thou/uL (4.8-10.8)
--- NOTE | 2019-02-15 14:00 | RAD ---
EXAM: AP pelvis one view: HISTORY: Pain following a fall COMPARISON: None FINDINGS: Degenerative changes. No acute fracture or dislocation or other significant acute osseous abnormality. IMPRESSION: No significant acute process.
--- NOTE | 2019-02-15 14:01 | RAD ---
EXAM: Left hip 2 views: HISTORY: Pain left hip and lower back following a fall COMPARISON: None FINDINGS: Degenerative changes. No acute fracture or dislocation or other significant acute osseous abnormality. IMPRESSION: No significant acute process.
--- NOTE | 2019-02-15 14:02 | RAD ---
EXAM: Right hip 2 views: HISTORY: Hip pain following an injury COMPARISON: None FINDINGS: Considerable solid fecal material within a dilated rectum. Degenerative changes. No acute fracture or dislocation or other significant acute osseous abnormality. IMPRESSION: No significant acute process.
[2019-02-15] MEDS ORDERED: Fentanyl 100 MCG/2 ML VIAL ONE (14:43)
[2019-02-15 14:56] LABS: Bilirubin Negative (Negative); Blood, Urine Negative (Negative); Clarity CLEAR (Clear); Glucose, Urine (Dipstick) 500 mg/dL (Negative); Leukocyte Moderate (Negative); Nitrite Negative (Negative); Protein, Urine (Dipstick) Negative (Neg-Trace); Urobilinogen 0.2 mg/dL (0.2-1.0)
[2019-02-15 14:59] LABS: Hyaline Casts/LPF 7-10 HYALINE CAST LPF (0-3 Hyaline); Pathc Cast-AUWi Flag 1.36 (0-2.49); Squamous Epithelial 0-3 HPF (0-3)
[2019-02-15 15:02] LABS: Yeast-AUWi Flag 1558.5 (0-25.0)
[2019-02-15 15:10] LABS: RBC/HPF 0-3 HPF (0-3)
[2019-02-15 15:11] LABS: Bacteria/HPF Rare-Few HPF (None Seen); Yeast-All Forms 3+ HPF (None Seen)
[2019-02-15 15:48] LABS: ALT (SGPT) 14 U/L (8-55); AST (SGOT) 28 U/L (5-34); Albumin 4.1 g/dL (3.4-4.8); Alkaline Phosphatase 81 U/L (40-150); Anion Gap 18 mmol/L (10-20); BUN (Urea Nitrogen) 36 mg/dL (8.4-25.7); Bilirubin, Total 0.5 mg/dL (0.2-1.2); Calc. Creatinine Clearance 0 mL/min (70-130); Calcium 10.4 mg/dL (7.8-10.44); Carbon Dioxide 19 mmol/L (23-31); Chloride 105 mmol/L (98-107); Estimated GFR-MDRD 45; Glucose 321 mg/dL (80-115); Potassium 5.7 mmol/L (3.5-5.1); Protein, Total 8.1 g/dL (5.8-8.1); Sodium 136 mmol/L (136-145)
--- NOTE | 2019-02-18 15:14 | EKG ---
Test Reason : Blood Pressure : / mmHG Vent. Rate : 063 BPM Atrial Rate : 063 BPM P-R Int : 146 ms QRS Dur : 100 ms QT Int : 398 ms P-R-T Axes : 062 -02 032 degrees QTc Int : 407 ms Normal sinus rhythm Voltage criteria for left ventricular hypertrophy Abnormal ECG Confirmed by JULIO TAN ([id number]), editorial cartoonist ANDIE STONE ([id number]) on 02/18/2019 3:13:33 PM Referred By: Confirmed By:JULIO TAN
== END 2019-02-15 16:10 | disposition home or self-care (01) ==
LOC: ERS 13:02
DX: M54.5 Low back pain (principal); M25.551 Pain in right hip; M25.552 Pain in left hip; K59.00 Constipation, unspecified; E87.5 Hyperkalemia; N39.0 Urinary tract infection, site not specified; K21.9 Gastro-esophageal reflux disease without esophagitis; E11.9 Type 2 diabetes mellitus without complications; E78.5 Hyperlipidemia, unspecified; Z79.899 Other long term (current) drug therapy; Z79.84 Long term (current) use of oral hypoglycemic drugs; W19.XXXA Unspecified fall, initial encounter
CPT/HCPCS: 36415; 72170; 80053; 81003; 81015; 85025; 87086; 93005; 96361; 96374; 96375; J1885; J3010

== ENCOUNTER 2019-05-22 09:56 | Emergency (ER) | payer MEDICARE ==
[2019-05-22] MEDS ORDERED: Fentanyl 100 MCG/2 ML VIAL ONE (10:49)
[2019-05-22] MEDS ORDERED: Acetaminophen 500 MG TAB ONE (10:49)
[2019-05-22 11:43] LABS: #Eosinphils 0.1 thou/uL (0.0-0.7); #Lymphocytes 1.2 thou/uL (1.20-3.40); #Monocytes 0.8 thou/uL (0.11-0.59); #Neutrophils 5.9 thou/uL (1.40-6.50); %Basophils 0.3 % (0.0-1.0); %Eosinophils 1.6 % (0.0-10.0); %Lymphocytes 15.1 % (21.0-51.0); %Monocytes 10.1 % (0.0-10.0); %Neutrophils 72.9 % (42.0-75.0); Hemoglobin 13.6 g/dL (14.0-18.0); Mean Corpuscular HGB CONC 34.2 g/dL (32.0-36.0); Mean Corpuscular Hemoglobin 30.1 pg (27.0-31.0); Mean Corpuscular Volume 88.1 fL (78.0-98.0); Mean Platelet Volume 7.3 fL (7.4-10.4); Platelet Count 210 thou/uL (130-400); RBC Distribution Width 12.4 % (11.5-14.5); Red Blood Cell (RBC) Count 4.51 mill/uL (4.70-6.10); White Blood Cell (WBC) Count 8.1 thou/uL (4.8-10.8)
[2019-05-22 11:55] LABS: ALT (SGPT) 15 U/L (8-55); AST (SGOT) 13 U/L (5-34); Albumin 3.9 g/dL (3.4-4.8); Alkaline Phosphatase 116 U/L (40-150); Anion Gap 13 mmol/L (10-20); BUN (Urea Nitrogen) 11 mg/dL (8.4-25.7); Bilirubin, Total 0.6 mg/dL (0.2-1.2); Calc. Creatinine Clearance 0 mL/min (70-130); Carbon Dioxide 24 mmol/L (23-31); Chloride 101 mmol/L (98-107); Estimated GFR-MDRD 54; Globulin 3.2 g/dL (2.4-3.5); Glucose 329 mg/dL (80-115); Potassium 3.8 mmol/L (3.5-5.1); Protein, Total 7.1 g/dL (5.8-8.1); Sodium 134 mmol/L (136-145)
[2019-05-22 12:22] LABS: Bacteria/HPF None Seen HPF (None Seen); Bilirubin Negative (Negative); Blood, Urine Negative (Negative); Clarity Clear (Clear); Glucose, Urine (Dipstick) Greater than 1000 mg/dL (Negative); Leukocyte 25 Leu/uL (Negative); Nitrite Negative (Negative); Protein, Urine (Dipstick) 20 mg/dL (Neg-Trace); RBC/HPF 0-3 HPF (0-3); Squamous Epithelial 0-3 HPF (0-3); Urobilinogen Normal mg/dL (Less than 2); WBC/HPF 21-50 HPF (0-3)
[2019-05-22 12:33] LABS: Yeast-Budding 2+ HPF (None Seen)
[2019-05-22 12:44] LABS: Bicarbonate (HCO3v) 25.3 mmol/L (22.0-28.0); CO2 Tension (PvCO2) 38.6 mmHg (40.0-50.0); Calcium, Ionized 1.25 mmol/L (See Comments:); Chloride 106 mmol/L (98-107); Hemoglobin - Calc 13.4 g/dL (14.0-18.0); Potassium 5.4 mmol/L (3.5-5.1); Sodium 140 mmol/L (138-145); T. Carbon Dioxide 26.5 mmol/L (22.0-28.0); vO2 Saturation-calc 89.5 % (60.0-85.0)
--- NOTE | 2019-05-22 13:55 | RAD ---
Exam:Left elbow 4 views HISTORY: Pain. Swelling. COMPARISON: None FINDINGS: Joint spaces are preserved. No joint effusion. No fracture. No cortical irregularity. No pe riosteal reaction. There is soft tissue swelling along the dorsal aspect of the elbow. No radiopaque foreign body IMPRESSION: Soft tissue swelling, without evidence of radiopaque foreign body. Correlate for cellulit is.
== END 2019-05-22 14:12 | disposition home or self-care (01) ==
LOC: ERS 09:56
DX: S50.02XA Contusion of left elbow, initial encounter (principal); E11.65 Type 2 diabetes mellitus with hyperglycemia; I10 Essential (primary) hypertension; M70.32 Other bursitis of elbow, left elbow; K21.9 Gastro-esophageal reflux disease without esophagitis; E78.5 Hyperlipidemia, unspecified; Z86.73 Personal history of transient ischemic attack (TIA), and cerebral infarction without residual deficits; Z79.899 Other long term (current) drug therapy; Z79.4 Long term (current) use of insulin; W18.30XA Fall on same level, unspecified, initial encounter
CPT/HCPCS: 36415; 36416; 80053; 81003; 81015; 82010; 82330; 82803; 84484; 85025; 93005; 96361; 96374; J3010

== ENCOUNTER 2019-06-13 14:32 | Emergency (ER) | payer MEDICARE ==
[2019-06-13 15:19] LABS: #Eosinphils 0.2 thou/uL (0.0-0.7); #Lymphocytes 1.4 thou/uL (1.20-3.40); #Monocytes 0.4 thou/uL (0.11-0.59); #Neutrophils 3.2 thou/uL (1.40-6.50); %Basophils 0.7 % (0.0-1.0); %Eosinophils 3.3 % (0.0-10.0); %Lymphocytes 25.9 % (21.0-51.0); %Monocytes 8.4 % (0.0-10.0); %Neutrophils 61.8 % (42.0-75.0); Hemoglobin 13.5 g/dL (14.0-18.0); Mean Corpuscular HGB CONC 34.4 g/dL (32.0-36.0); Mean Corpuscular Hemoglobin 30.2 pg (27.0-31.0); Mean Corpuscular Volume 87.8 fL (78.0-98.0); Mean Platelet Volume 6.5 fL (7.4-10.4); Platelet Count 249 thou/uL (130-400); RBC Distribution Width 12.3 % (11.5-14.5); Red Blood Cell (RBC) Count 4.48 mill/uL (4.70-6.10); White Blood Cell (WBC) Count 5.2 thou/uL (4.8-10.8)
[2019-06-13 15:42] LABS: ALT (SGPT) 13 U/L (8-55); AST (SGOT) 13 U/L (5-34); Albumin 3.8 g/dL (3.4-4.8); Alkaline Phosphatase 107 U/L (40-110); Anion Gap 14 mmol/L (10-20); BUN (Urea Nitrogen) 14 mg/dL (8.4-25.7); Bilirubin, Total 0.4 mg/dL (0.2-1.2); CK (CPK) 121 U/L (30-200); Calc. Creatinine Clearance 0 mL/min (70-130); Calcium 10.4 mg/dL (7.8-10.44); Carbon Dioxide 23 mmol/L (23-31); Chloride 102 mmol/L (98-107); Estimated GFR-MDRD 61; Globulin 3.5 g/dL (2.4-3.5); Glucose 359 mg/dL (80-115); Potassium 3.7 mmol/L (3.5-5.1); Protein, Total 7.3 g/dL (5.8-8.1); Sodium 135 mmol/L (136-145)
--- NOTE | 2019-06-13 16:34 | RAD ---
EXAM: XR Sacrum and Coccyx STANDARD PROVIDED CLINICAL HISTORY: Pain FINDINGS: There is no evidence for fracture or other acute osseous abnormality. Alignment appears anatomic. Ciarra nt spaces appear preserved. IMPRESSION: No evidence for an acute osseous abnormality. If there is persistent clinical concern, conservative m anagement and follow-up imaging advised.
[2019-06-13] MEDS ORDERED: traMADol HCl 50 MG TAB ONE (16:56)
--- NOTE | 2019-06-13 17:01 | RAD ---
LUMBAR SPINE: 06/13/19 Two views. HISTORY: Back pain. The lumbar vertebrae maintain height and alignment. No compression deformity. Disc spaces are preserv ed. Mild degenerative osteophytes. Mild facet hypertrophy. IMPRESSION: There are mild degenerative changes. No acute compression deformity. POS: [facility]
== END 2019-06-13 18:09 | disposition home or self-care (01) ==
LOC: ERS 14:32
DX: M54.5 Low back pain (principal); E11.9 Type 2 diabetes mellitus without complications; K21.9 Gastro-esophageal reflux disease without esophagitis; E78.5 Hyperlipidemia, unspecified; Z86.73 Personal history of transient ischemic attack (TIA), and cerebral infarction without residual deficits; Z79.899 Other long term (current) drug therapy; W18.2XXA Fall in (into) shower or empty bathtub, initial encounter; Z79.4 Long term (current) use of insulin
CPT/HCPCS: 36415; 72100; 72220; 80053; 82550; 85025

== ENCOUNTER 2019-09-19 13:49 | Emergency (ER) | payer MEDICARE ==
[2019-09-19 14:25] LABS: #Eosinphils 0.2 thou/uL (0.0-0.7); #Lymphocytes 1.1 thou/uL (1.20-3.40); #Monocytes 0.8 thou/uL (0.11-0.59); #Neutrophils 5.7 thou/uL (1.40-6.50); %Basophils 0.3 % (0.0-1.0); %Eosinophils 2.8 % (0.0-10.0); %Monocytes 10.4 % (0.0-10.0); %Neutrophils 72.5 % (42.0-75.0); Hemoglobin 14.1 g/dL (14.0-18.0); Mean Corpuscular HGB CONC 33.5 g/dL (32.0-36.0); Mean Corpuscular Hemoglobin 29.2 pg (27.0-31.0); Mean Corpuscular Volume 87.2 fL (78.0-98.0); Mean Platelet Volume 7.1 fL (7.4-10.4); Platelet Count 222 thou/uL (130-400); RBC Distribution Width 12.4 % (11.5-14.5); Red Blood Cell (RBC) Count 4.84 mill/uL (4.70-6.10); White Blood Cell (WBC) Count 7.8 thou/uL (4.8-10.8)
--- NOTE | 2019-09-19 14:29 | RAD ---
PORTABLE CHEST 1 VIEW: DATE: 09/19/2019. TIME: 1:59 PM. HISTORY: Flu-like symptoms and general malaise, cough. FINDINGS: Comparison is made with the exam of 02/01/2019. The heart size is normal. No focal areas of consolidation, pneumothoraces, or pleural effusions are seen. IMPRESSION: No radiographic evidence of acute cardiopulmonary process. POS: [facility]
[2019-09-19 14:55] LABS: ALT (SGPT) 13 U/L (8-55); AST (SGOT) 13 U/L (5-34); Alkaline Phosphatase 97 U/L (40-110); Anion Gap 17 mmol/L (10-20); BUN (Urea Nitrogen) 21 mg/dL (8.4-25.7); Bilirubin, Total 0.5 mg/dL (0.2-1.2); Calc. Creatinine Clearance 0 mL/min (70-130); Carbon Dioxide 25 mmol/L (23-31); Chloride 102 mmol/L (98-107); Estimated GFR-MDRD 49; Globulin 3.1 g/dL (2.4-3.5); Glucose 197 mg/dL (80-115); Lipase 82 U/L (8-78); Potassium 4.1 mmol/L (3.5-5.1); Protein, Total 7.1 g/dL (5.8-8.1); Sodium 140 mmol/L (136-145)
[2019-09-19 15:18] LABS: Base Excess-Venous 2.6 mmol/L (-2.0 to 3.0); Bicarbonate (HCO3v) 27.3 mmol/L (22.0-28.0); CO2 Tension (PvCO2) 41.1 mmHg (40.0-50.0); Calcium, Ionized 1.16 mmol/L (See Comments:); Chloride 105 mmol/L (98-107); Hemoglobin - Calc 15.5 g/dL (14.0-18.0); Sodium 140 mmol/L (138-145); T. Carbon Dioxide 28.5 mmol/L (22.0-28.0); vO2 Saturation-calc 91.4 % (60.0-85.0)
== END 2019-09-19 15:49 | disposition home or self-care (01) ==
LOC: ERS 13:49
DX: E11.65 Type 2 diabetes mellitus with hyperglycemia (principal); K21.9 Gastro-esophageal reflux disease without esophagitis; E78.5 Hyperlipidemia, unspecified; Z86.73 Personal history of transient ischemic attack (TIA), and cerebral infarction without residual deficits; Z79.4 Long term (current) use of insulin; Z79.899 Other long term (current) drug therapy
CPT/HCPCS: 36415; 36416; 71045; 80053; 82010; 82330; 82803; 83690; 84484; 85025; 87804; 93005

== ENCOUNTER 2019-11-06 08:53 | Emergency (ER) | payer MEDICARE ==
[2019-11-06] MEDS ORDERED: Ondansetron PF 4 MG/2 ML Vial ONE (09:33)
[2019-11-06] MEDS ORDERED: Morphine 4 MG/ML VIAL ONE (09:33)
--- NOTE | 2019-11-06 09:41 | RAD ---
EXAM: 4 views of the left knee HISTORY: Knee pain COMPARISON: None FINDINGS: No knee effusion is seen. There is no evidence of acute fracture or dislocation. Moderate t ricompartmental joint space narrowing and osteophyte formation is seen consistent with osteoarthritis. No soft tissue swelling is present. Vascular calcic lesions are seen. IMPRESSION: Moderate left knee osteoarthritis
--- NOTE | 2019-11-06 09:41 | RAD ---
EXAM: 2 views of the left hip HISTORY: Left hip pain COMPARISON: 02/15/2019 FINDINGS: 2 views of the left hip shows no evidence of acute fracture or dislocation. No degenerative changes are seen. No soft tissue swelling is present. IMPRESSION: No evidence of acute osseous abnormality.
[2019-11-06 09:50] LABS: #Eosinphils 0.3 thou/uL (0.0-0.7); #Lymphocytes 1.6 thou/uL (1.20-3.40); #Monocytes 0.4 thou/uL (0.11-0.59); #Neutrophils 4.3 thou/uL (1.40-6.50); %Basophils 0.5 % (0.0-1.0); %Eosinophils 4.2 % (0.0-10.0); %Lymphocytes 24.4 % (21.0-51.0); %Monocytes 6.5 % (0.0-10.0); %Neutrophils 64.4 % (42.0-75.0); Hemoglobin 13.3 g/dL (14.0-18.0); Mean Corpuscular HGB CONC 34.4 g/dL (32.0-36.0); Mean Corpuscular Hemoglobin 31.1 pg (27.0-31.0); Mean Corpuscular Volume 90.5 fL (78.0-98.0); Mean Platelet Volume 6.8 fL (7.4-10.4); Platelet Count 242 thou/uL (130-400); RBC Distribution Width 12.6 % (11.5-14.5); Red Blood Cell (RBC) Count 4.26 mill/uL (4.70-6.10); White Blood Cell (WBC) Count 6.6 thou/uL (4.8-10.8)
[2019-11-06 10:12] LABS: ALT (SGPT) 15 U/L (8-55); AST (SGOT) 19 U/L (5-34); Alkaline Phosphatase 87 U/L (40-110); Anion Gap 13 mmol/L (10-20); BUN (Urea Nitrogen) 14 mg/dL (8.4-25.7); Bilirubin, Total 0.4 mg/dL (0.2-1.2); Calc. Creatinine Clearance 0 mL/min (70-130); Calcium 10.1 mg/dL (7.8-10.44); Carbon Dioxide 26 mmol/L (23-31); Chloride 101 mmol/L (98-107); Estimated GFR-MDRD 53; Glucose 241 mg/dL (80-115); Potassium 4.3 mmol/L (3.5-5.1); Sodium 136 mmol/L (136-145)
--- NOTE | 2019-11-06 10:15 | ULT ---
EXAM: Left lower extremity venous ultrasound HISTORY: Left lower extremity pain and edema COMPARISON: 02/01/2019 TECHNIQUE: Multiplanar grayscale and color Doppler images were obtained in a left lower extremity rommel ous ultrasound. Spectral analysis of the Doppler waveforms were performed. FINDINGS: The common femoral vein, profunda femoral vein, superficial femoral vein, and popliteal vei n are normal in appearance without visible thrombus. These vessels demonstrate normal compression, flow, and augmentation. The posterior tibial vein and greater saphenous vein are patent without evidence of thrombus. IMPRESSION: No evidence of DVT.
== END 2019-11-06 13:28 | disposition home or self-care (01) ==
LOC: ERS 08:53
DX: M25.562 Pain in left knee (principal); M25.552 Pain in left hip; M79.89 Other specified soft tissue disorders; E11.9 Type 2 diabetes mellitus without complications; K21.9 Gastro-esophageal reflux disease without esophagitis; E78.5 Hyperlipidemia, unspecified; Z86.73 Personal history of transient ischemic attack (TIA), and cerebral infarction without residual deficits; Z79.4 Long term (current) use of insulin; Z79.899 Other long term (current) drug therapy
CPT/HCPCS: 36415; 80053; 85025; 96374; 96375; J2270; J2405

== ENCOUNTER 2020-02-19 12:02 | Inpatient (IN) | payer MEDICARE ==
--- NOTE | 2020-02-19 12:35 | RAD ---
Radiograph right foot 3 views: 02/19/2020 HISTORY: 59-year-old male with "toe right foot has infection" Given history does not specify which toe is involved COMPARISON: None FINDINGS: There is apparent cortical osseous thickening from the mid diaphysis to the proximal metaphysis media lly and laterally, involving the fifth proximal phalanx. This is favored to represent callus of a late subacute or early chronic fracture, rather than periostitis of osteomyelitis, but clinical corre lation is recommended. No fracture lucency is visualized. Mild to moderate arthritic changes at the first IP, and mildly at the first MTP. Flatfoot. Atherosclerotic callus patient. No benny destructive osseous lesion identified. IMPRESSION: 1. Evidence for healing, nonacute fracture of fifth proximal phalanx. 2. Pes planus. 3. Atherosclerosis.
[2020-02-19 12:42] LABS: #Eosinphils 0.2 thou/uL (0.0-0.7); #Lymphocytes 1.6 thou/uL (1.20-3.40); #Monocytes 0.6 thou/uL (0.11-0.59); #Neutrophils 5.2 thou/uL (1.40-6.50); %Basophils 0.1 % (0.0-1.0); %Eosinophils 3.1 % (0.0-10.0); %Lymphocytes 20.8 % (21.0-51.0); %Monocytes 7.4 % (0.0-10.0); %Neutrophils 68.5 % (42.0-75.0); Hemoglobin 12.6 g/dL (14.0-18.0); Mean Corpuscular HGB CONC 34.4 g/dL (32.0-36.0); Mean Corpuscular Hemoglobin 31.2 pg (27.0-31.0); Mean Corpuscular Volume 90.7 fL (78.0-98.0); Mean Platelet Volume 6.9 fL (7.4-10.4); Platelet Count 210 thou/uL (130-400); RBC Distribution Width 12.2 % (11.5-14.5); Red Blood Cell (RBC) Count 4.03 mill/uL (4.70-6.10); White Blood Cell (WBC) Count 7.5 thou/uL (4.8-10.8)
[2020-02-19 13:17] LABS: ALT (SGPT) 16 U/L (8-55); AST (SGOT) 16 U/L (5-34); Alkaline Phosphatase 98 U/L (40-110); Anion Gap 14 mmol/L (10-20); BUN (Urea Nitrogen) 19 mg/dL (8.4-25.7); Bilirubin, Total 0.5 mg/dL (0.2-1.2); Calc. Creatinine Clearance 0 mL/min (70-130); Calcium 9.5 mg/dL (7.8-10.44); Carbon Dioxide 24 mmol/L (23-31); Chloride 105 mmol/L (98-107); Estimated GFR-MDRD 59; Globulin 2.8 g/dL (2.4-3.5); Glucose 189 mg/dL (80-115); Protein, Total 6.8 g/dL (5.8-8.1); Sodium 139 mmol/L (136-145)
[2020-02-19] MEDS ORDERED: Vancomycin 1 GM/200 ML BAG ONE (14:30)
[2020-02-19 16:46] VITALS: BMI 25.9
[2020-02-19] MEDS ORDERED: HumaLOG 300 UNITS/3 ML VIAL SC PRN (19:10)
[2020-02-19] MEDS ORDERED: Dextrose 5% in Water 1,000 ML IV PRN (19:10)
[2020-02-19] MEDS ORDERED: Dextrose 50% Abboject 50 ML SYRINGE SLOW IVP PRN (19:10)
[2020-02-19] MEDS ORDERED: Acetaminophen 325 MG TAB PO PRN (19:10)
[2020-02-19] MEDS ORDERED: Ondansetron ODT 4 MG TAB PO PRN ×2 (19:10)
[2020-02-19] MEDS ORDERED: Ondansetron PF 4 MG/2 ML Vial IVP PRN (19:10)
[2020-02-19] MEDS ORDERED: hydrALAZINE 20 MG/ML VIAL SLOW IVP PRN (19:10)
[2020-02-19] MEDS: Famotidine 20 MG TAB PO SCH (20:22)
[2020-02-19] MEDS: Cefepime 1 GM in Sodium Chloride 0.9% 100 ML IVPB SCH (20:22)
--- NOTE | 2020-02-19 22:30 | HP ---
PRIMARY CARE PHYSICIAN: Catalina Garcia MD CHIEF COMPLAINT: I stumped my toe week ago and have a blister on my foot. HISTORY OF PRESENT ILLNESS: Mr. Milner is a pleasant 69-year-old gentleman, who has a history of hypertension and diabetes mellitus. He was in his usual state of health until about a week ago. He says he stumped his toe. He was inside his home when this happened and he says that later after a few days, a blister came up on the area as well. He had been trying to take care of it himself with some triple antibiotic ointment, but he noticed that he started having redness and swelling in the leg and a day or two ago, he started noticing it was itching and some yellow stuff started coming out of it. He denies any fevers or chills. No nausea. No vomiting. No other complaints and as a result, he came to the ER for evaluation. Due to the significant regional erythema in the right lower extremity, he is being admitted for further evaluation. The patient says that his blood sugars usually run in the 200s. He says he is compliant with his medications. 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 The patient denies any chest pains or shortness of breath. No PND. No orthopnea. No nausea. No vomiting. He does have some urinary frequency and nocturia, but he says his physician is aware of this and otherwise no other complaints. REVIEW OF SYSTEMS: All systems were reviewed and are negative except for that mentioned in the history of present illness. PAST MEDICAL HISTORY: Significant for gastroesophageal reflux disease, diabetes mellitus type 2, hyperlipidemia, chronic kidney disease stage 3, and hypertension. PAST SURGICAL HISTORY: The patient has had cataract surgery. ALLERGIES: CODEINE AND PENICILLIN, ALL OF WHICH CAUSE A RASH AND ITCHING. SOCIAL HISTORY: He is single. He has no children. His sister, Marianne Wilcox, is his surrogate decision maker. He would like to be a full code. He is a former smoker. He says he quit in 1997. Prior to that he smoked about a half a pack a day for 12 to 15 years. He denies any alcohol use. FAMILY HISTORY: Significant for hypertension, heart disease, and diabetes mellitus. CURRENT MEDICATIONS: Include: 1. Lisinopril 40 mg daily. 2. Carvedilol 6.25 mg p.o. twice a day. 3. Levemir insulin 35 units daily and NovoLog sliding scale. 4. Hydralazine 100 mg in the a.m. and at bedtime and 50 mg midday. 5. Glipizide 10 mg twice a day. 6. Vitamin D3 of 1000 units p.o. daily. 7. Lipitor 20 mg at bedtime. 8. Norvasc 5 mg at bedtime. PHYSICAL EXAMINATION: GENERAL: He is alert and oriented. He appears to be in no acute distress. He is well developed and well nourished. VITAL SIGNS: Blood pressure was 155/85, heart rate 77, respiratory rate of 16, temperature is 98.3, and O2 saturation is 99% on room air. HEENT: Pupils are equal, round, and reactive. Extraocular muscles are intact. Sclerae anicteric. Throat, no erythema, no exudates. He is edentulous. NECK: No adenopathy. No bruits. LUNGS: Clear to auscultation. No wheezing. No rales. No rhonchi. CARDIOVASCULAR: He has a normal S1, S2. There is no S3 or S4. No murmurs, clicks, or rubs. ABDOMEN: Soft, nontender, and nondistended. Positive for bowel sounds. No rebound. No guarding. No organomegaly. EXTREMITIES: He has chronic venous stasis changes on the right leg. He has some 1+ edema, as well as some swelling in the lower extremity and erythema, some mild warmth. He does have palpable dorsalis pedis pulses bilaterally and good capillary refill on the right foot on the third and fourth toes. There is some maceration laterally and some mild erythema and hyperpigmentation. However, there was no drainage. SKIN AND INTEGUMENT: As above. LABORATORY RESULTS: White blood cell count 7.5, hemoglobin 12.6, hematocrit is 36.6, and platelet count is 210. Sodium 139, potassium 4.0, chloride is 105, CO2 is 24, BUN of 19, creatinine 1.44, glucose is 189. Lactic acid 1.9. He had an x-ray of the foot. There is no evidence of osteomyelitis. However, he did have a nonacute healing fracture on the fifth proximal phalanx. ASSESSMENT: This is a 69-year-old gentleman, who has a diabetic foot ulcer between the third and fourth toes as well as cellulitis extending into the leg. Due to concern for transportation issues, he will be admitted full admission and started on broad-spectrum IV antibiotics. We will get an MRI of the foot to rule out osteomyelitis. Consult Podiatry, as well as Wound Care and ID to help with the length of antibiotic therapy. 1. Diabetes mellitus. We will reconcile and restart his home medications, as well as p.r.n. medicines. 2. Chronic kidney disease stage 3. This is clinically stable. 3. Hypertension. We will restart his home medications. 4. The patient will be placed on deep venous thrombosis and gastrointestinal prophylaxis. Job ID: [id number]
[2020-02-20] MEDS: Vancomycin 1 GM in Premix Bag 1 BAG IVPB SCH ×2 (03:49→15:27)
[2020-02-20] MEDS: HumaLOG 300 UNITS/3 ML VIAL SC PRN ×3 (05:18→17:17)
[2020-02-20] MEDS ORDERED: traMADol HCl 50 MG TAB PO SCH (06:15)
[2020-02-20 06:22] LABS: #Eosinphils 0.2 thou/uL (0.0-0.7); #Lymphocytes 1.3 thou/uL (1.20-3.40); #Monocytes 0.5 thou/uL (0.11-0.59); #Neutrophils 5.8 thou/uL (1.40-6.50); %Basophils 0.3 % (0.0-1.0); %Lymphocytes 16.6 % (21.0-51.0); %Monocytes 6.6 % (0.0-10.0); %Neutrophils 73.4 % (42.0-75.0); Hemoglobin 12.8 g/dL (14.0-18.0); Mean Corpuscular HGB CONC 34.1 g/dL (32.0-36.0); Mean Corpuscular Hemoglobin 30.8 pg (27.0-31.0); Mean Corpuscular Volume 90.4 fL (78.0-98.0); Mean Platelet Volume 6.9 fL (7.4-10.4); Platelet Count 215 thou/uL (130-400); RBC Distribution Width 12.1 % (11.5-14.5); Red Blood Cell (RBC) Count 4.17 mill/uL (4.70-6.10)
[2020-02-20 06:40] LABS: Anion Gap 11 mmol/L (10-20); BUN (Urea Nitrogen) 13 mg/dL (8.4-25.7); Calc. Creatinine Clearance 69 mL/min (70-130); Calcium 9.5 mg/dL (7.8-10.44); Carbon Dioxide 24 mmol/L (23-31); Chloride 103 mmol/L (98-107); Estimated GFR-MDRD 69; Glucose 231 mg/dL (80-115); Potassium 4.1 mmol/L (3.5-5.1); Sodium 134 mmol/L (136-145)
[2020-02-20] MEDS: Cefepime 1 GM in Sodium Chloride 0.9% 100 ML IVPB SCH ×2 (08:44→20:54)
[2020-02-20] MEDS: Famotidine 20 MG TAB PO SCH ×2 (08:44→20:53)
[2020-02-20] MEDS: Enoxaparin Sodium 30 MG/0.3 ML SYRINGE SC SCH (08:47)
--- NOTE | 2020-02-20 18:59 | PDOC.HOSPP ---
- Subjective Encounter Date: 02/20/20 Encounter Time: 18:57 Subjective: Mr. Milner was seen today in follow-up of diabetic foot infection. He does not have any complaints. - Objective Vital Signs & Weight: Vital Signs (12 hours) Temp Pulse Resp BP Pulse Ox 02/20/20 16:00 97.4 F L 72 18 143/85 H 98 02/20/20 11:48 98.0 F 69 18 127/75 97 02/20/20 08:00 97 02/20/20 07:17 98.0 F 76 18 131/67 97 Weight Admit Weight 191 lb Weight 191 lb I&O: 02/19/20 02/20/20 02/21/20 06:59 06:59 06:59 Intake Total 1300 Output Total 600 350 Balance -600 950 Result Diagrams: 02/20/20 06:12 02/20/20 06:12 Additional Labs: Accuchecks 02/20/20 02/20/20 02/20/20 16:14 11:58 05:09 POC Glucose 293 H 264 H 231 H 02/19/20 19:48 POC Glucose 151 H Hospitalist ROS - Medication Medications: Active Medications Generic Name Dose Route Start Last Admin Trade Name Freq PRN Reason Stop Dose Admin Enoxaparin Sodium 30 mg 02/20/20 09:00 02/20/20 08:47 Lovenox SC 30 mg 0900 LILY Administration Famotidine 20 mg 02/19/20 21:00 02/20/20 08:44 Pepcid PO 20 mg BID LILY Administration Cefepime HCl 1 gm/ Sodium 100 mls @ 200 mls/hr 02/19/20 21:00 02/20/20 08:44 Chloride IVPB 100 mls Q12HR LILY Administration Vancomycin HCl 1 gm/ Device 200 mls @ 200 mls/hr 02/20/20 03:00 02/20/20 15: 27 IVPB 200 mls 0300,1500 LILY Administration Insulin Human Lispro 0 units 02/19/20 19:10 02/20/20 17:17 Humalog SC 6 unit .MODERATE SLIDING SC PRN Administration Moderate Correctional Scale - Exam Eye: PERRL Heart: RRR, no murmur, no gallops, no rubs, normal peripheral pulses Respiratory: CTAB, no wheezes, no rales, no ronchi, normal chest expansion, no tachypnea, normal percussion Gastrointestinal: soft, non-tender, non-distended, normal bowel sounds, no palpable masses, no hepatomegaly Extremities: 1+ LE edema (+ chronic venous stasis changes wound is dressed) Hosp A/P (1) Diabetic infection of right foot Code(s): E11.628 - TYPE 2 DIABETES MELLITUS WITH OTHER SKIN COMPLICATIONS; L08.9 - LOCAL INFECTION OF THE SKIN AND SUBCUTANEOUS TISSUE, UNSP Status: Acute (2) DM2 (diabetes mellitus, type 2) Status: Chronic (3) HLD (hyperlipidemia) Code(s): E78.5 - HYPERLIPIDEMIA, UNSPECIFIED Status: Chronic (4) HTN (hypertension) Code(s): I10 - ESSENTIAL (PRIMARY) HYPERTENSION Status: Chronic - Plan * Diabetic foot infection- continue IV antibiotics * MRI of the toes are pending as well as arterial dopplers * Evaluation from Podiatry and ID are in progress * HTN- blood pressure is stable- will re-start his home medications * DM- Blood glucose is becoming elevated- will re-start Glypizide and continue SSI
[2020-02-20] MEDS: Carvedilol 6.25 MG TAB PO SCH (20:53)
[2020-02-20] MEDS: Atorvastatin Calcium 20 MG TAB PO SCH (20:53)
[2020-02-20] MEDS: hydrALAZINE 25 MG TAB PO SCH (20:55)
--- NOTE | 2020-02-20 21:08 | MRI ---
MRI OF THE RIGHT FOOT PERFORMED WITHOUT CONTRAST ENHANCEMENT: 02/20/20 HISTORY: Diabetic with foot pain. Area of concern was marked with a radiopaque marker. This is at the level of the fourth and fifth toes. There is some mild edema change in the subcutaneous fat along the dorsum of the foot. In addition, th ere is some mild edema associated with the soft tissues of the intrinsic muscles of the foot. The brendon nge are slightly more pronounced along the second and third metatarsals. The metatarsals showed adenike l signal change. No stress reaction or edema. I do not appreciate any definite soft tissue ulcer. There is questionably some increased signal mcnair e within the distal phalanx of the fourth toe. the finding is difficult to assess due to the toe bein g in slight flexion. I am not certain there is any type of ulcer in this region. The possibility of s ome reactive bony change or early osteomyelitis. It is difficult to exclude as a possibility. IMPRESSION: 1. Questionable subtle changes involving the distal phalanx of the second toe. Findings equivoca l. If there is an ulcer in this region, the possibility of some reactive bony change or early osteomy elitis is not excluded. 2. Deformity to the proximal phalanx of the little toe consistent a previous fracture. No edema change in this area. POS: [facility]
--- NOTE | 2020-02-20 21:14 | ULT ---
EXAM: RIGHT LOWER EXTREMITY ARTERIAL VASCULAR DUPLEX WITH COLOR AND SPECTRAL DOPPLER IMAGIN02/20/20 HISTORY: Right foot ulcer. Diminished pulses. Exam performed from groin to ankle including common femoral, superficial, popliteal, posterior tibial , anterior tibial and dorsalis pedis arteries. There is essentially monophasic flow noted throughout the right lower extremity. There are abnormal h igh velocities including the right common femoral artery at 185 cm/s, right proximal profunda artery at 199 cm/s, popliteal artery at 163 cm/s and anterior tibial artery at 137 cm/s. IMPRESSION: Multiple foci of abnormal high velocities as above, evidence for multiple high grade stenoses. Monoph asic flow throughout the lower extremity. Findings are evidence for fairly severe generalized arteria l vascular or atherosclerotic disease of the lower extremities. Consider follow up CT angiogram of the aorta and bilateral lower extremity CT angiogram for further a ssessment. POS: [facility]
[2020-02-21 02:18] LABS: Vancomycin, Trough 14.7 ug/mL
[2020-02-21] MEDS: Vancomycin 1 GM in Premix Bag 1 BAG IVPB SCH ×2 (03:16→15:01)
[2020-02-21] MEDS: HumaLOG 300 UNITS/3 ML VIAL SC PRN ×2 (05:43→11:49)
--- NOTE | 2020-02-21 06:15 | CON ---
DATE OF CONSULTATION: 02/20/2020 REASON FOR CONSULTATION: Right lower extremity inflammatory process. HISTORY OF PRESENT ILLNESS: A 69-year-old with history of type 2 diabetes, hyperlipidemia, and prior CVA with mild right hemiparesis, who lives in [place] with sister and has developed inflammatory changes in the right lower extremity for the past few days with associated pain. He brought himself to the emergency room and initial findings included a temperature of 99 and pulse 84. A white cell count 7.5, hemoglobin 12.6, and platelets 210 with 68% neutrophils. A foot x-ray with nonacute fracture of the 5th proximal phalanx. Currently, the patient is awake and sitting by the bedside. He denies any headaches. No visual symptoms. No sore throat, odynophagia, or dysphagia. No dyspnea. No abdominal pain. Pain in the right lower extremity has diminished, compared with admission. No diarrhea. He is urinating in the urinal. MEDICAL HISTORY: 1. Type 2 diabetes. 2. Hyperlipidemia. 3. GERD. 4. CVA with mild right hemiparesis. 5. Hypertension. SURGICAL HISTORY: Cataract removal. 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 Quit drinking alcoholic beverages about 20 years ago. Quit smoking about 20 years ago. Lives at home with sister. ALLERGIES: CEPHALEXIN AND PENICILLINS. CURRENT MEDICATION LIST: Includes: 1. Cefepime. 2. Lovenox. 3. Pepcid. 4. Insulin. 5. Vancomycin. PHYSICAL EXAMINATION: VITAL SIGNS: Temperature max 98.3, blood pressure 120/75, pulse 69, respirations 18, and O2 saturation 97. SKIN: Shows the areas of intertriginous maceration and shallow ulceration in the lateral and medial aspect of the 4th toe. Intertriginous maceration between the 5th and 4th toes. Peripheral IV access. No lymphadenopathy. HEENT: Ocular movements are conjugate. Sclerae white. Pupils are 2 mm and reactive. Oral cavity with loosened plate in the upper dentures. NECK: No jugular vein distention. No thyromegaly. LUNGS: Symmetric with clear breath sounds. HEART: S1 and S2. Regular rate. No S3 or S4. ABDOMEN: Soft, not distended or tender. No ascites. No bladder distention. EXTREMITIES: I could not identify popliteal or dorsalis pedis pulses in the right lower extremity. NEUROLOGIC: He is awake. He has significant dysarthria, but he seems to understand all questions and follows commands, appears to be oriented. LABORATORY DATA: Repeat labs: White cell count 8.0, hemoglobin 12.8, and platelets 215. Creatinine 1.26, which is improved from admission. Liver profile and albumin within normal limits. Two sets of blood cultures, no growth thus far. ASSESSMENT: 1. Type 2 diabetes. 2. Likely peripheral vascular disease. 3. Maceration of interdigital space, right foot between the 3rd, 4th, and 5th toes and shallow ulcerations in the 4th toe associated with cellulitis, possibly, this is not clear. DISCUSSION: Differential diagnosis includes a cellulitis plus/minus peripheral vascular disease with [id number] vascular insufficiency and intertriginous maceration of the web spaces mentioned above. Management will include IV, then transition to oral antimicrobial therapy and then vascular evaluation. At this point, I probably would not conduct an MRI of his right foot yet. Arterial vascular eval will be ordered. Job ID: [id number] [facility]
[2020-02-21] MEDS: hydrALAZINE 25 MG TAB PO SCH ×3 (08:11→20:27)
[2020-02-21] MEDS: Famotidine 20 MG TAB PO SCH ×2 (08:11→20:25)
[2020-02-21] MEDS: Saccharomyces boulardii 250 MG CAP PO SCH (08:11)
[2020-02-21] MEDS: Amlodipine 5 MG TAB PO SCH (08:12)
[2020-02-21] MEDS: Lisinopril 20 MG TAB PO SCH (08:12)
[2020-02-21] MEDS: Enoxaparin Sodium 30 MG/0.3 ML SYRINGE SC SCH (08:13)
[2020-02-21] MEDS: glipiZIDE 10 MG TAB PO SCH ×2 (08:13→16:32)
[2020-02-21] MEDS: Cefepime 1 GM in Sodium Chloride 0.9% 100 ML IVPB SCH ×2 (08:13→20:28)
[2020-02-21] MEDS: Carvedilol 6.25 MG TAB PO SCH ×2 (08:13→20:26)
[2020-02-21] MEDS ORDERED: Non-Formulary Item 1 EACH (Insulin Detemir [Levemir Flextouch] 35 UNIT) SQ SCH (09:00)
[2020-02-21] MEDS: Insulin Glargine 35 UNITS in Pre-Filled Syringe 1 EACH SC SCH (09:53)
--- NOTE | 2020-02-21 12:37 | CT ---
CTA ABDOMEN AND PELVIS AND LOWER EXTREMITIES WITH CONTRAST: Axial tomograms obtained with multiplanar reconstruction and 3D post processing following angio alpesh col. INDICATION: Peripheral vascular disease. Abnormal arterial Doppler study which showed evidence of bilateral lowe r extremity arterial disease. FINDINGS: The abdominal aorta shows mild atherosclerotic change. No evidence of aneurysm. No evidence of diss ection. There is moderate stenosis at the origin of the celiac artery. This appears to be greater than 50% d iameter on the sagittal image. No significant stenosis seen at the origin of the superior mesenteric artery. The superior mesenteri c artery trunk is patent with no significant atherosclerotic disease or stenosis. There is no evidence of renal artery stenosis. Aortic bifurcation is patent. Mild atherosclerotic change in the iliac arteries without stenosis. Right Lower Extremity: The right internal and external iliacs are patent and symmetric. The right common femoral is patent. Profunda femoral shows atherosclerotic change and mild stenosis at its origin but is patent. The right superficial femoral artery is patent at its origin. There is mild atherosclerotic change t hroughout the right superficial femoral artery with mild stenosis distally at Shawn's canal. Atherosclerotic change is seen in the popliteal artery with mild stenosis at the joint space. There is high-grade stenosis in the distal right popliteal at the trifurcation. There are 3 vessels opacified at the trifurcation and there is 3-vessel runoff to the right ankle and foot. Left Lower Extremity: Left internal and external iliacs are patent with atherosclerotic changes seen. The left common femo ral shows atherosclerotic change and mild luminal stenosis which is estimated at 30-40%. Profunda is patent. The origin of the superficial femoral artery on the left is patent. Mild disease throughout the left SFA with mild stenosis distally at Shawn's canal. The left popliteal shows moderate atherosclerotic disease. There is evidence of probable significant stenosis in the mid and distal left popliteal. Popliteal trifurcates below the knee and there are 3 vessels opacified. Peroneal appears to occlude distally. Anterior tibial and posterior tibial arteries are patent to the ankle and foot. Soft Tissues: Lung bases clear. Liver, spleen, pancreas, adrenal glands, and kidneys unremarkable. Bowel loops unremarkable. There is prostatic hypertrophy which indents the floor of the bladder. The prostate is heterogeneous . IMPRESSION: 1. Stenosis at the origin of the celiac artery. 2. Atherosclerotic changes throughout both superficial femoral arteries with areas of mild to modera te stenosis distally. 3. There is evidence of significant stenosis involving both popliteal arteries with probable high-gr maria elena stenosis in the distal right popliteal just above the trifurcation. 4. Runoff below the knees bilaterally as described above. 5. Significant prostatic hypertrophy impinging on the floor of the bladder. POS: AH
[2020-02-21] MEDS ORDERED: Iopamidol-370 76% 500 ML 1 ML ONE (14:10)
--- NOTE | 2020-02-21 15:19 | PDOC.HOSPP ---
- Subjective Encounter Date: 02/21/20 Encounter Time: 15:12 Subjective: Mr. Milner was seen today in follow-up of diabetic foot infection. He does not have any new complaints. - Objective Vital Signs & Weight: Vital Signs (12 hours) Temp Pulse Resp BP BP BP Pulse Ox 02/21/20 11:48 72 141/76 H 02/21/20 11:15 97.7 F 72 18 141/76 H 99 02/21/20 08:13 146/82 H 02/21/20 08:12 78 146/82 H 02/21/20 08:11 78 146/82 H 02/21/20 08:10 98 02/21/20 07:13 98.0 F 78 18 146/82 H 98 02/21/20 04:14 98.0 F 67 18 156/78 H 96 Weight Admit Weight 191 lb Weight 191 lb I&O: 02/20/20 02/21/20 02/22/20 06:59 06:59 06:59 Intake Total 1300 Output Total 600 350 Balance -600 950 Result Diagrams: 02/20/20 06:12 02/20/20 06:12 Additional Labs: Accuchecks 02/21/20 02/21/20 02/20/20 11:19 04:22 20:11 POC Glucose 245 H 230 H 267 H 02/20/20 16:14 POC Glucose 293 H Hospitalist ROS - Medication Medications: Active Medications Generic Name Dose Route Start Last Admin Trade Name Mattq PRN Reason Stop Dose Admin Amlodipine Besylate 5 mg 02/21/20 09:00 02/21/20 08:12 Norvasc PO 5 mg DAILY LILY Administration Atorvastatin Calcium 20 mg 02/20/20 21:00 02/20/20 20:53 Lipitor PO 20 mg HS LILY Administration Carvedilol 6.25 mg 02/20/20 21:00 02/21/20 08:13 Coreg PO 6.25 mg BID LILY Administration Cholecalciferol 1,000 units 02/21/20 09:00 02/21/20 08:12 Vitamin D3 PO 1,000 units DAILY LILY Administration Enoxaparin Sodium 30 mg 02/20/20 09:00 02/21/20 08:13 Lovenox SC 30 mg 0900 LILY Administration Famotidine 20 mg 02/19/20 21:00 02/21/20 08:11 Pepcid PO 20 mg BID LILY Administration Glipizide 10 mg 02/21/20 08:00 02/21/20 08:13 Glucotrol PO 10 mg BID-WM LILY Administration Hydralazine HCl 100 mg 02/21/20 09:00 02/21/20 08:11 Apresoline PO 100 mg QAM LILY Administration Hydralazine HCl 100 mg 02/20/20 21:00 02/20/20 20:55 Apresoline PO 100 mg HS LILY Administration Hydralazine HCl 50 mg 02/21/20 12:00 02/21/20 11:48 Apresoline PO 50 mg 1200 LILY Administration Cefepime HCl 1 gm/ Sodium 100 mls @ 200 mls/hr 02/19/20 21:00 02/21/20 08:13 Chloride IVPB 100 mls Q12HR LILY Administration Vancomycin HCl 1 gm/ Device 200 mls @ 200 mls/hr 02/20/20 03:00 02/21/20 15: 01 IVPB 200 mls 0300,1500 LILY Administration Insulin Glargine 35 units/ 0.35 mls @ 0 mls/hr 02/21/20 09:00 02/21/20 09:53 Miscellaneous Medication SC 0.35 mls QAM LILY Administration Insulin Human Lispro 0 units 02/19/20 19:10 02/21/20 11:49 Humalog SC 4 unit .MODERATE SLIDING SC PRN Administration Moderate Correctional Scale Insulin Human Lispro 0 units 02/19/20 19:10 02/20/20 20:59 Humalog SC 3 unit .BEDTIME SLIDING SC PRN Administration Bedtime Correctional Scale Lisinopril 40 mg 02/21/20 09:00 02/21/20 08:12 Zestril PO 40 mg DAILY LILY Administration Saccharomyces Boulardii 250 mg 02/21/20 09:00 02/21/20 08:11 Florastor PO 250 mg DAILY LILY Administration - Exam Eye: PERRL, anicteric sclera Heart: RRR, no murmur, no gallops, no rubs, normal peripheral pulses Respiratory: CTAB, no wheezes, no rales, normal chest expansion Gastrointestinal: soft, non-distended, normal bowel sounds Extremities: no cyanosis (+ chronic venous stasis changes), 1+ LE edema Hosp A/P (1) Diabetic infection of right foot Code(s): E11.628 - TYPE 2 DIABETES MELLITUS WITH OTHER SKIN COMPLICATIONS; L08.9 - LOCAL INFECTION OF THE SKIN AND SUBCUTANEOUS TISSUE, UNSP Status: Acute (2) DM2 (diabetes mellitus, type 2) Status: Chronic (3) HLD (hyperlipidemia) Code(s): E78.5 - HYPERLIPIDEMIA, UNSPECIFIED Status: Chronic (4) HTN (hypertension) Code(s): I10 - ESSENTIAL (PRIMARY) HYPERTENSION Status: Chronic - Plan * Diabetic foot infection- continue IV antibiotics * MRI of the foot- findings noted * Arterial dopplers and CTA noted. He has findings suggestive of high grade obstruction at the popliteal level * CV surgery has been consulted * HTN- blood pressure is better * DM- his home medications were just started today- will monitor, and adjust if needed
--- NOTE | 2020-02-21 16:24 | PRG ---
DATE OF SERVICE: SUBJECTIVE: Mr. Milner is about the same. No diarrhea. No respiratory symptoms or abdominal pain. OBJECTIVE: VITAL SIGNS: Unchanged. LUNGS: Clear. HEART: S1 and S2, regular rate. ABDOMEN: Soft. EXTREMITIES: Foot is unchanged. DIAGNOSTIC DATA: The ultrasound showed abnormalities and a CT angiogram showed areas of occlusion in the popliteal and particularly at the distal level of the popliteal. Dr. Schilling has been consulted. ASSESSMENT AND DISCUSSION: Type 2 diabetes, peripheral vascular disease with popliteal obstruction, probably would benefit from revascularization, and after that, I would probably just follow radiologically the ulcerations and see if they resolve. Job ID: [id number]
[2020-02-21] MEDS: Sodium Chloride 0.45% 1,000 ML IV SCH (16:32)
[2020-02-21] MEDS ORDERED: Aspirin 325 MG TAB PO SCH (18:00)
[2020-02-21] MEDS ORDERED: Clopidogrel Bisulfate 75 MG TAB PO SCH (18:00)
--- NOTE | 2020-02-21 18:32 | CON ---
DATE OF CONSULTATION: HISTORY: This is a 69-year-old gentleman, admitted to the hospital with ulceration on the third and fourth toes of his right foot for indeterminate period of time associated with pain and drainage, prompting presentation to the hospital. His past medical history includes diabetes mellitus, hypertension, dyslipidemia, and stage 3 CKD. His hypertension was quite problem initially, but he states this has been better controlled in contrast to his diabetes, which is on again, off again according to the patient. He also suffered a stroke about 20 years ago, that left him with some weakness in his right leg and as such that he does get around with a cane, although does have balance issues. He is a nonsmoker for about 15 years. He currently lives with his sister. MEDICATIONS: 1. Lisinopril 40. 2. Coreg 6.25 b.i.d. 3. Levemir 35 units daily. 4. Glipizide 10 b.i.d. 5. Lipitor 20 at bedtime. 6. Norvasc 5 daily. 7. Hydralazine 100 q.a.m. and 50 q.p.m. ALLERGIES: HE REPORTS ALLERGIES TO CODEINE, PENICILLIN, AND ASPARTAME. CURRENTLY, HE IS ON IV ROCEPHIN AND VANCOMYCIN. LABORATORY VALUES: Of note, his white count was normal on admission and his creatinine is currently 1.26. His hemoglobin A1c is generally greater than 11. PAST MEDICAL HISTORY: His past medical history as noted above. REVIEW OF SYSTEMS: The patient denies chest pain. He has had normal echocardiogram in the past with normal EF and aortic valve sclerosis. The patient does admit to some mild weight loss of about 10 pounds over the last year. He denies cough or chest pain. PHYSICAL EXAMINATION: VITAL SIGNS: Weight is 191 pounds. His most recent blood pressure is 141/76 with a heart rate of 70. NECK: No carotid bruits. LUNGS: Clear to auscultation anteriorly. CARDIAC: Regular rate and rhythm. No murmurs. ABDOMEN: Soft and nontender. EXTREMITIES: He has palpable femoral pulses bilaterally as well as a left popliteal, left dorsalis pedis, and right dorsalis pedis. He has Doppler signals present in right posterior tibial as well as dorsalis pedis. CT angiogram was reviewed and demonstrates a high-grade stenosis in the mid tibia peroneal trunk involving the takeoff of the anterior tibial artery with critical disease in this area in both anterior tibial and tibioperoneal trunk. There is about a 70% mid popliteal artery stenosis and no other significant disease in the right leg. He has a 1+ edema in his right lower leg right foot. Dressings were removed and he has ulceration involving accusing area between the third and fourth toes involving both toes. He has an MRI that is indeterminate as far as osteomyelitis. At this time, the patient has a high-grade lesion in his distal popliteal proximal tibioperoneal artery on the right. I think expectant management is probably ill-advised given the fact that the patient already has toe ulcerations, even though he has a pulse in his foot, and has suggested angioplasty, probably angioplasty both anterior tibial and tibioperoneal trunk and popliteal artery. Informed consent has been obtained from the patient. I have tried to call his sister and left a message on her cell phone. Job ID: [id number]
[2020-02-21] MEDS: Atorvastatin Calcium 20 MG TAB PO SCH (20:25)
[2020-02-22] MEDS: Vancomycin 1 GM in Premix Bag 1 BAG IVPB SCH ×2 (02:27→15:07)
[2020-02-22] MEDS ORDERED: Heparin 0 ML ONE (06:32)
[2020-02-22] MEDS: Carvedilol 6.25 MG TAB PO SCH (06:35)
[2020-02-22] MEDS ORDERED: Heparin 10,000 UNITS/1 ML VIAL ONE ×2 (07:43→07:57)
[2020-02-22] MEDS ORDERED: Protamine Sulfate 50 MG/5 ML VIAL ONE (08:37)
[2020-02-22] MEDS ORDERED: Clopidogrel Bisulfate 300 MG TAB ONE (08:43)
[2020-02-22] MEDS ORDERED: Aspirin 81 mg Enteric Coated Tablet PO SCH (09:00)
[2020-02-22] MEDS ORDERED: Clopidogrel Bisulfate 75 MG TAB PO SCH (09:00)
[2020-02-22] MEDS ORDERED: Iopamidol 370 76% 50 ML VIAL FS ONE (09:18)
[2020-02-22] MEDS ORDERED: Fentanyl 100 MCG/2 ML VIAL ONE (09:40)
[2020-02-22] MEDS ORDERED: Sodium Chloride 0.9% 10 ML ONE (09:41)
--- NOTE | 2020-02-22 10:41 | OP ---
DATE OF PROCEDURE: 02/22/2020 PREOPERATIVE DIAGNOSIS: Nonhealing wound, toes, right foot with peripheral artery disease. PROCEDURES PERFORMED: Right lower extremity angiogram with balloon angioplasty and then subsequent stenting of the origin of the anterior tibial with a 4 x 16 Rebel drug-coated stent and with the origin of the tibioperoneal trunk with a 4 x 12 Rebel drug-coated stent. ANESTHESIA: Local. No sedation. CONTRAST: 28 mL. FLUORO: 15.4 minutes. DESCRIPTION OF PROCEDURE: After adequate prepping and draping, 1% lidocaine was used to infiltrate the right groin, and a micro needle was used to puncture under ultrasound guidance. The wire continuously went down the profunda vessel, so this was pulled, and then after holding pressure, another puncture about 1 cm higher on the femoral artery resulted in the wire going down the SFA. A micropuncture catheter 5-Canadian was placed, and then a Concert Window guidewire, and a 6-Canadian dilator and sheath. Following this, the patient was heparinized with good ACT levels of greater than 250. Angiography was performed. Following which, a 0.014 Luge wire was placed down the anterior tibial, and then a separate wire down the the tibioperoneal trunk down the peroneal artery. 3 x 2 cm balloons were then used to inflate individually both vessels, and results were not much different than original. 4 x 16 balloons were then used to inflate individually, and again results were suboptimal. At this time, it was felt that stenting would be appropriate, and the stents were placed in position and deployed. Following completion of this, there was no residual stenosis compared with about an 80% stenosis of the anterior tibial and about a 70% stenosis of the tibioperoneal trunk prior to stenting. Heparin was partially reversed. Plavix was given, and the sheath is to be removed. Job ID: [id number]
[2020-02-22] MEDS: Sodium Chloride 0.45% 1,000 ML IV SCH (12:08)
[2020-02-22] MEDS: Cefepime 1 GM in Sodium Chloride 0.9% 100 ML IVPB SCH (12:09)
[2020-02-22] MEDS: Enoxaparin Sodium 30 MG/0.3 ML SYRINGE SC SCH (12:10)
[2020-02-22] MEDS: Insulin Glargine 35 UNITS in Pre-Filled Syringe 1 EACH SC SCH (12:11)
[2020-02-22] MEDS: glipiZIDE 10 MG TAB PO SCH ×2 (13:02→18:18)
[2020-02-22] MEDS: Amlodipine 5 MG TAB PO SCH (13:02)
[2020-02-22] MEDS: Famotidine 20 MG TAB PO SCH (13:03)
[2020-02-22] MEDS: Saccharomyces boulardii 250 MG CAP PO SCH (13:03)
[2020-02-22] MEDS: Lisinopril 20 MG TAB PO SCH (13:04)
[2020-02-22] MEDS: hydrALAZINE 25 MG TAB PO SCH ×2 (13:04→13:05)
[2020-02-22 15:38] VITALS: BP 128/68; TEMP 98.5
[2020-02-22 16:30] LABS: Anion Gap 12 mmol/L (10-20); BUN (Urea Nitrogen) 16 mg/dL (8.4-25.7); Calc. Creatinine Clearance 73 mL/min (70-130); Calcium 9.2 mg/dL (7.8-10.44); Carbon Dioxide 24 mmol/L (23-31); Chloride 105 mmol/L (98-107); Estimated GFR-MDRD 74; Glucose 175 mg/dL (80-115); Potassium 3.8 mmol/L (3.5-5.1); Sodium 137 mmol/L (136-145)
--- NOTE | 2020-02-22 16:40 | PDOC.HOSPP ---
- Subjective Encounter Date: 02/22/20 Encounter Time: 16:38 Subjective: Mr. Milner was seen today in follow-up of diabetic foot infection. He says he wants to go home. No new complaints. - Objective Vital Signs & Weight: Vital Signs (12 hours) Temp Pulse Resp BP BP BP BP 02/22/20 15:34 98.5 F 82 16 128/68 02/22/20 13:05 66 138/73 02/22/20 13:04 66 117/71 02/22/20 13:02 66 138/73 02/22/20 12:59 66 16 138/73 02/22/20 12:00 64 18 142/72 H 02/22/20 11:30 63 16 138/65 02/22/20 11:00 98.0 F 63 18 145/71 H 02/22/20 06:38 98.0 F 77 18 135/73 02/22/20 06:35 117/71 Pulse Ox 02/22/20 15:34 96 02/22/20 13:05 02/22/20 13:04 02/22/20 13:02 02/22/20 12:59 100 02/22/20 12:00 97 02/22/20 11:30 98 02/22/20 11:00 100 02/22/20 06:38 98 02/22/20 06:35 Weight Admit Weight 191 lb Weight 191 lb I&O: 02/21/20 02/22/20 02/23/20 06:59 06:59 06:59 Intake Total 1300 1920 Output Total 350 1200 Balance 950 720 Result Diagrams: 02/20/20 06:12 02/22/20 15:57 Additional Labs: Accuchecks 02/22/20 02/22/20 02/22/20 15:42 11:23 05:56 POC Glucose 200 H 161 H 188 H 02/21/20 19:32 POC Glucose 167 H Hospitalist ROS - Medication Medications: Active Medications Generic Name Dose Route Start Last Admin Trade Name Freq PRN Reason Stop Dose Admin Amlodipine Besylate 5 mg 02/21/20 09:00 02/22/20 13:02 Norvasc PO 5 mg DAILY LILY Administration Aspirin 81 mg 02/22/20 09:00 02/22/20 12:10 Ecotrin PO Not Given DAILY LILY Atorvastatin Calcium 20 mg 02/20/20 21:00 02/21/20 20:25 Lipitor PO 20 mg HS LILY Administration Carvedilol 6.25 mg 02/20/20 21:00 02/22/20 06:35 Coreg PO 6.25 mg BID LILY Administration Cholecalciferol 1,000 units 02/21/20 09:00 02/22/20 13:03 Vitamin D3 PO 1,000 units DAILY LILY Administration Clopidogrel Bisulfate 75 mg 02/22/20 09:00 02/22/20 12:09 Plavix PO Not Given DAILY LILY Enoxaparin Sodium 30 mg 02/20/20 09:00 02/22/20 12:10 Lovenox SC Not Given 0900 LILY Famotidine 20 mg 02/19/20 21:00 02/22/20 13:03 Pepcid PO 20 mg BID LILY Administration Glipizide 10 mg 02/21/20 08:00 02/22/20 13:02 Glucotrol PO Not Given BID-WM LILY Hydralazine HCl 100 mg 02/21/20 09:00 02/22/20 13:04 Apresoline PO Not Given QAM LILY Hydralazine HCl 100 mg 02/20/20 21:00 02/21/20 20:27 Apresoline PO 100 mg HS LILY Administration Hydralazine HCl 50 mg 02/21/20 12:00 02/22/20 13:05 Apresoline PO 50 mg 1200 LILY Administration Cefepime HCl 1 gm/ Sodium 100 mls @ 200 mls/hr 02/19/20 21:00 02/22/20 12:09 Chloride IVPB 100 mls Q12HR LILY Administration Vancomycin HCl 1 gm/ Device 200 mls @ 200 mls/hr 02/20/20 03:00 02/22/20 15: 07 IVPB 200 mls 0300,1500 LILY Administration Insulin Glargine 35 units/ 0.35 mls @ 0 mls/hr 02/21/20 09:00 02/22/20 12:11 Miscellaneous Medication SC 0.35 mls QAM LILY Administration Sodium Chloride 1,000 mls @ 50 mls/hr 02/21/20 16:00 02/22/20 12:08 1/2 Normal Saline IV 1,000 mls .Q20H LILY Administration Insulin Human Lispro 0 units 02/19/20 19:10 02/21/20 11:49 Humalog SC 4 unit .MODERATE SLIDING SC PRN Administration Moderate Correctional Scale Insulin Human Lispro 0 units 02/19/20 19:10 02/20/20 20:59 Humalog SC 3 unit .BEDTIME SLIDING SC PRN Administration Bedtime Correctional Scale Lisinopril 40 mg 02/21/20 09:00 02/22/20 13:04 Zestril PO 40 mg DAILY LILY Administration Saccharomyces Boulardii 250 mg 02/21/20 09:00 02/22/20 13:03 Florastor PO 250 mg DAILY LILY Administration - Exam Eye: PERRL, anicteric sclera Heart: RRR, no murmur, no gallops, no rubs, normal peripheral pulses Respiratory: CTAB, no wheezes, no rales, no ronchi, normal chest expansion Gastrointestinal: soft, non-tender, non-distended, normal bowel sounds, no palpable masses Extremities: no cyanosis, 1+ LE edema Hosp A/P (1) Diabetic infection of right foot Code(s): E11.628 - TYPE 2 DIABETES MELLITUS WITH OTHER SKIN COMPLICATIONS; L08.9 - LOCAL INFECTION OF THE SKIN AND SUBCUTANEOUS TISSUE, UNSP Status: Acute (2) DM2 (diabetes mellitus, type 2) Status: Chronic (3) HLD (hyperlipidemia) Code(s): E78.5 - HYPERLIPIDEMIA, UNSPECIFIED Status: Chronic (4) HTN (hypertension) Code(s): I10 - ESSENTIAL (PRIMARY) HYPERTENSION Status: Chronic - Plan * Diabetic foot infection- He has had baloon angioplasty and drug eluting STENT to the anterior tibial and STENT to the tibial-peroneal * Discussed with Dr. Diggs- he can be discharge home on Keflex * Will re-start Home Health for wound care as well
--- NOTE | 2020-02-22 21:44 | DIS ---
DATE OF ADMISSION: 02/19/2020 DATE OF DISCHARGE: 02/22/2020 PRIMARY CARE PHYSICIAN: Catalina Garcia MD DISCHARGE DISPOSITION: Home with Home Health. DISCHARGE DIAGNOSES: 1. Diabetic foot ulcer. 2. Peripheral vascular disease. 3. Diabetes mellitus type 2. 4. Hypertension. 5. Chronic kidney disease stage 3. 6. Hyperlipidemia. DISCHARGE MEDICATIONS: Include: 1. Keflex 500 mg one p.o. b.i.d. for 2 weeks. 2. Florastor 250 mg daily. 3. Lisinopril 40 mg daily. 4. Plavix 75 mg daily. 5. Coreg 6.25 mg twice a day. 6. Aspirin 81 mg p.o. daily. 7. Levemir insulin 35 units subcu daily. 8. NovoLog sliding scale. 9. Hydralazine 100 mg in the morning and in the evening and 50 mg midday. 10. Glipizide 10 mg twice daily. 11. Vitamin D3 of 1000 units p.o. daily. 12. Lipitor 20 mg at bedtime. 13. Norvasc 5 mg daily. IMAGING DONE DURING THE HOSPITAL STAY: The patient had a lower extremity arterial Doppler which showed multiple foci of abnormal high velocities and evidence for multiple high-grade stenoses and monophasic flow throughout the lower extremities. The patient also had a MRI of the lower extremity. There was no concrete evidence of osteomyelitis. There is evidence of an old healed fracture. The patient also had an aortogram with runoffs and this showed stenosis at the origin of the iliac artery and there was significant stenosis involving both popliteal arteries with high-grade stenosis in the distal right popliteal just above the trifurcation and the patient had a right balloon angioplasty and stent placement to the anterior tibial, as well as stent to the tibioperoneal artery and these are drug-eluting stents. CODE STATUS: Full code. ALLERGIES: ASPARTAME, CABBAGE, CODEINE, AND PENICILLIN. HOSPITAL COURSE: Mr. Milner is a pleasant 69-year-old gentleman, who presented to the emergency room with ulcer on the third and fourth toes of the right foot. He had noticed increased swelling and discoloration of the area. He was brought in due to concern for possible early osteomyelitis. Arterial ultrasound was done and demonstrated significant evidence for peripheral vascular disease. The patient had an arteriogram with runoff demonstrating stenosis in the popliteal area on the right. Vascular Surgery as well as ID were consulted during his hospital stay as well. He underwent balloon angioplasty of the right anterior tibial and tibial peroneal artery with a drug-eluting stent placed each area. He was placed on aspirin and Plavix following this. He has been cleared for discharge with home health and will be discharged on the aspirin and Plavix, as well as Keflex for 2 weeks and also with Home Health for local wound care. It is likely that the ulcers were primarily vascular in origin. Job ID: [id number]
== END 2020-02-22 18:45 | disposition home health service (06) | DRG 253 ==
LOC: ERS 12:02 → OBSVTOIN 16:41 → T4-A 16:41
PROVIDERS: ADMIT Internal Medicine; ATTEND Internal Medicine
PROC: 047P34Z Dilation of Right Anterior Tibial Artery with Drug-eluting Intraluminal Device, Percutaneous Approach (ICD-10-PCS; principal; 2020-02-22)
PROC: 047M34Z Dilation of Right Popliteal Artery with Drug-eluting Intraluminal Device, Percutaneous Approach (ICD-10-PCS; 2020-02-22)
PROC: B41F1ZZ Fluoroscopy of Right Lower Extremity Arteries using Low Osmolar Contrast (ICD-10-PCS; 2020-02-22)
DX: E11.51 Type 2 diabetes mellitus with diabetic peripheral angiopathy without gangrene (principal); I69.351 Hemiplegia and hemiparesis following cerebral infarction affecting right dominant side; L03.115 Cellulitis of right lower limb; E11.628 Type 2 diabetes mellitus with other skin complications; E11.621 Type 2 diabetes mellitus with foot ulcer; E11.22 Type 2 diabetes mellitus with diabetic chronic kidney disease; I12.9 Hypertensive chronic kidney disease with stage 1 through stage 4 chronic kidney disease, or unspecified chronic kidney disease; N18.3 Chronic kidney disease, stage 3 (moderate); K21.9 Gastro-esophageal reflux disease without esophagitis; E78.5 Hyperlipidemia, unspecified; I77.89 Other specified disorders of arteries and arterioles; I70.203 Unspecified atherosclerosis of native arteries of extremities, bilateral legs; Z88.0 Allergy status to penicillin; Z88.5 Allergy status to narcotic agent; Z87.891 Personal history of nicotine dependence; Z79.4 Long term (current) use of insulin; Z98.41 Cataract extraction status, right eye; Z98.42 Cataract extraction status, left eye
CPT/HCPCS: 36415; 36416; 37230; 37234; 75635; 76942; 80048; 80053; 80202; 83605; 85025; 85347; 87040; 93923; 96365; C1874; G0378; J0692; J1644; J1650; J1815; J2720; J3010; J3370; J3490; Q9967

== ENCOUNTER 2020-05-13 14:58 | Outpatient (CLI) | payer MEDICARE, OTHER ==
[2020-05-13 17:59] LABS: Hemoglobin 11.5 g/dL (14.0-18.0); Mean Corpuscular Hemoglobin 29.7 pg (27.0-31.0); Mean Platelet Volume 6.7 fL (7.4-10.4); Platelet Count 344 thou/uL (130-400); Red Blood Cell (RBC) Count 3.87 mill/uL (4.70-6.10); White Blood Cell (WBC) Count 7.4 thou/uL (4.8-10.8)
[2020-05-13 18:18] LABS: Anion Gap 17 mmol/L (10-20); BUN (Urea Nitrogen) 14 mg/dL (8.4-25.7); Calc. Creatinine Clearance 0 mL/min (70-130); Calcium 9.2 mg/dL (7.8-10.44); Carbon Dioxide 23 mmol/L (23-31); Chloride 103 mmol/L (98-107); Estimated GFR-MDRD 67; Glucose 214 mg/dL (80-115); Potassium 3.8 mmol/L (3.5-5.1); Sodium 139 mmol/L (136-145)
[2020-05-14 12:30] LABS: SARS-CoV-2 MS2 Positive; SARS-CoV-2 N Gene Negative; SARS-CoV-2 S Gene Negative; SARS-CoV-2 by NAA Not Detected (NotDetected); SARS-CoV-2 orf1ab Negative
== END 2020-05-13 14:59 | disposition home or self-care (01) ==
LOC: LABBT 14:58
PROVIDERS: ATTEND Thoracic Surgery (Cardiothoracic Vascular Surgery)
DX: Z01.812 Encounter for preprocedural laboratory examination (principal); Z20.828 Contact with and (suspected) exposure to other viral communicable diseases
CPT/HCPCS: 80048; 85027; U0003; 87635

== ENCOUNTER 2020-05-17 06:03 | Day surgery (SDC) | payer MEDICARE ==
[2020-05-15 12:47] VITALS: BMI 26.8
== END 2020-05-17 07:52 | disposition home or self-care (01) ==
LOC: SDC 06:03 → CCL 07:52
PROVIDERS: ATTEND Thoracic Surgery (Cardiothoracic Vascular Surgery)
DX: I70.25 Atherosclerosis of native arteries of other extremities with ulceration (principal); Z53.9 Procedure and treatment not carried out, unspecified reason; Z79.02 Long term (current) use of antithrombotics/antiplatelets; Z79.2 Long term (current) use of antibiotics; Z79.4 Long term (current) use of insulin; Z79.82 Long term (current) use of aspirin; Z79.899 Other long term (current) drug therapy; Z88.0 Allergy status to penicillin; Z88.5 Allergy status to narcotic agent; Z91.018 Allergy to other foods; Z95.820 Peripheral vascular angioplasty status with implants and grafts

== ENCOUNTER 2021-05-21 13:09 | Outpatient (CLI) | payer MEDICARE | END 2021-05-21 13:10 | disposition home or self-care (01) | LOC: BICULT 13:09 | PROVIDERS: ATTEND Family Medicine | DX: N18.32 Chronic kidney disease, stage 3b (principal) | CPT/HCPCS: 76770; 93975 ==

== ENCOUNTER 2021-09-24 17:12 | Emergency (ER) | payer OTHER, MEDICARE ==
[2021-09-24 17:53] LABS: #Eosinphils 0.2 thou/uL (0.0-0.7); #Lymphocytes 0.4 thou/uL (1.20-3.40); #Monocytes 0.7 thou/uL (0.11-0.59); #Neutrophils 5.3 thou/uL (1.40-6.50); %Basophils 0.4 % (0.0-1.0); %Eosinophils 2.4 % (0.0-10.0); %Lymphocytes 6.3 % (21.0-51.0); %Neutrophils 79.8 % (42.0-75.0); Hemoglobin 13.3 g/dL (14.0-18.0); Mean Corpuscular HGB CONC 34.1 g/dL (32.0-36.0); Mean Corpuscular Hemoglobin 31.2 pg (27.0-31.0); Mean Corpuscular Volume 91.4 fL (78.0-98.0); Mean Platelet Volume 6.2 fL (7.4-10.4); Platelet Count 214 thou/uL (130-400); RBC Distribution Width 12.5 % (11.5-14.5); Red Blood Cell (RBC) Count 4.26 mill/uL (4.70-6.10); White Blood Cell (WBC) Count 6.6 thou/uL (4.8-10.8)
[2021-09-24 18:17] LABS: ALT (SGPT) 21 U/L (8-55); AST (SGOT) 23 U/L (5-34); Albumin 3.9 g/dL (3.4-4.8); Alkaline Phosphatase 107 U/L (40-110); Anion Gap 12 mmol/L (10-20); BUN (Urea Nitrogen) 19 mg/dL (8.4-25.7); Bilirubin, Total 0.6 mg/dL (0.2-1.2); Calc. Creatinine Clearance 0 mL/min (70-130); Calcium 10.1 mg/dL (7.8-10.44); Carbon Dioxide 24 mmol/L (23-31); Chloride 106 mmol/L (98-107); Globulin 3.5 g/dL (2.4-3.5); Glucose 121 mg/dL (80-115); Potassium 4.2 mmol/L (3.5-5.1); Protein, Total 7.4 g/dL (5.8-8.1); Sodium 138 mmol/L (136-145)
[2021-09-24 18:59] LABS: SARS-CoV-2 NAA Rapid Test DETECTED (NotDetected)
== END 2021-09-24 20:15 | disposition home or self-care (01) ==
LOC: ERS 17:12
DX: U07.1 COVID-19 (principal); S09.90XA Unspecified injury of head, initial encounter; S00.33XA Contusion of nose, initial encounter; W01.0XXA Fall on same level from slipping, tripping and stumbling without subsequent striking against object, initial encounter; Z86.73 Personal history of transient ischemic attack (TIA), and cerebral infarction without residual deficits; I10 Essential (primary) hypertension; E11.9 Type 2 diabetes mellitus without complications; E78.5 Hyperlipidemia, unspecified; K21.9 Gastro-esophageal reflux disease without esophagitis; Z79.4 Long term (current) use of insulin; Z79.899 Other long term (current) drug therapy
CPT/HCPCS: 70450; 70486; 71045; 72125; 80053; 83605; 85025; 93005; U0002

== ENCOUNTER 2021-09-27 07:57 | Inpatient (IN) | payer MEDICARE, OTHER ==
[2021-09-27 10:03] LABS: Hemoglobin 13.9 g/dL (14.0-18.0); Mean Corpuscular HGB CONC 33.5 g/dL (32.0-36.0); Mean Corpuscular Hemoglobin 30.1 pg (27.0-31.0); Mean Platelet Volume 6.2 fL (7.4-10.4); Platelet Count 252 thou/uL (130-400); RBC Distribution Width 12.6 % (11.5-14.5); Red Blood Cell (RBC) Count 4.62 mill/uL (4.70-6.10); White Blood Cell (WBC) Count 6.1 thou/uL (4.8-10.8)
[2021-09-27 10:20] LABS: ALT (SGPT) 41 U/L (8-55); AST (SGOT) 85 U/L (5-34); Albumin 3.8 g/dL (3.4-4.8); Alkaline Phosphatase 85 U/L (40-110); Anion Gap 14 mmol/L (10-20); BUN (Urea Nitrogen) 24 mg/dL (8.4-25.7); Bilirubin, Total 0.6 mg/dL (0.2-1.2); Calc. Creatinine Clearance 0 mL/min (70-130); Calcium 9.8 mg/dL (7.8-10.44); Carbon Dioxide 23 mmol/L (23-31); Chloride 106 mmol/L (98-107); Globulin 3.6 g/dL (2.4-3.5); Potassium 3.7 mmol/L (3.5-5.1); Protein, Total 7.4 g/dL (5.8-8.1); Sodium 139 mmol/L (136-145)
[2021-09-27 10:24] LABS: Band 10 % (5-11); Eosinophils 1 % (0-10); Lymphocytes 17 % (21-51); MDiff Complete? YES; Monocytes 8 % (0-10); Neutrophil 64 % (42-75)
[2021-09-27 10:27] LABS: Glucose 26 mg/dL (80-115)
[2021-09-27] MEDS ORDERED: Dextrose 50% Abboject 50 ML SYRINGE ONE ×3 (10:30→13:57)
[2021-09-27] MEDS ORDERED: hydrALAZINE 20 MG/ML VIAL ONE (14:54)
[2021-09-27] MEDS ORDERED: Ondansetron ODT 4 MG TAB PO PRN (16:58)
[2021-09-27] MEDS ORDERED: Enoxaparin Sodium 40 MG/0.4 ML SYRINGE SC SCH (17:00)
[2021-09-27] MEDS ORDERED: Albuterol Sulfate 2.5 mg/3 ml Neb NEB PRN (17:02)
[2021-09-27] MEDS ORDERED: Dextrose 5% in Water 1,000 ML IV PRN (17:05)
[2021-09-27] MEDS ORDERED: Dextrose 50% Abboject 50 ML SYRINGE SLOW IVP PRN (17:05)
[2021-09-27] MEDS ORDERED: Electrolyte Replacement Protocol 1 EACH FS SCH (17:15)
[2021-09-27 18:02] LABS: Troponin I 0.027 ng/mL (< 0.028)
[2021-09-27 18:05] LABS: CRP (Inflammatory) 1.83 mg/dL (= or < 0.5)
[2021-09-27] MEDS: Acetaminophen 325 MG TAB PO PRN ×2 (18:21→22:19)
[2021-09-27] MEDS: hydrALAZINE 20 MG/ML VIAL SLOW IVP PRN (18:26)
[2021-09-27] MEDS: Dextrose 5 % And 0.9 % NaCl 1,000 ML IV SCH (18:28)
[2021-09-27 19:12] LABS: Troponin I 0.026 ng/mL (< 0.028)
[2021-09-27] MEDS: Carvedilol 6.25 MG TAB PO SCH (20:03)
[2021-09-27] MEDS: Cholecalciferol 1,000 UNITS (25 MCG) TAB PO SCH (20:03)
[2021-09-27] MEDS: Benzonatate 100 MG CAP PO PRN (22:19)
[2021-09-28] MEDS: Dextrose 5 % And 0.9 % NaCl 1,000 ML IV SCH ×2 (03:53→20:59)
[2021-09-28] MEDS: Acetaminophen 325 MG TAB PO PRN ×2 (03:53→21:01)
[2021-09-28] MEDS: Clopidogrel Bisulfate 75 MG TAB PO SCH (08:09)
[2021-09-28] MEDS: Ascorbic Acid 500 mg Chewable Tablet PO SCH (08:09)
[2021-09-28] MEDS: Zinc Sulfate 220 MG CAP PO SCH (08:09)
[2021-09-28] MEDS: Carvedilol 6.25 MG TAB PO SCH ×2 (08:09→20:59)
[2021-09-28] MEDS ORDERED: Dexamethasone 4 mg/ml Vial SLOW IVP SCH (09:00)
[2021-09-28] MEDS ORDERED: Enoxaparin Sodium 40 MG/0.4 ML SYRINGE SC SCH (09:00)
[2021-09-28 10:35] LABS: Anion Gap 12 mmol/L (10-20); BUN (Urea Nitrogen) 26 mg/dL (8.4-25.7); Calc. Creatinine Clearance 58 mL/min (70-130); Carbon Dioxide 23 mmol/L (23-31); Cardiac Risk 4.5 (Less than 4.5); Chloride 109 mmol/L (98-107); Cholesterol 94 mg/dl (< 200 Desired); Glucose 133 mg/dL (80-115); HDL Cholesterol 21 mg/dL (>60 Neg Risk); LDL Cholesterol, Calculated 54 mg/dL; Sodium 140 mmol/L (136-145); Triglycerides 93 mg/dL (Less than 150)
[2021-09-28 10:41] LABS: Hemoglobin A1c 6.6 % (4.0-6.0)
[2021-09-28 11:48] LABS: Band 12 % (5-11); Eosinophils 1 % (0-10); Hemoglobin 13.1 g/dL (14.0-18.0); Lymphocytes 24 % (21-51); MDiff Complete? YES; Mean Corpuscular HGB CONC 32.5 g/dL (32.0-36.0); Mean Corpuscular Hemoglobin 30.1 pg (27.0-31.0); Mean Corpuscular Volume 92.7 fL (78.0-98.0); Mean Platelet Volume 6.9 fL (7.4-10.4); Metamyelocyte 1 % (0-0); Monocytes 11 % (0-10); Neutrophil 51 % (42-75); Platelet Count 218 thou/uL (130-400); RBC Distribution Width 12.6 % (11.5-14.5); Red Blood Cell (RBC) Count 4.34 mill/uL (4.70-6.10); White Blood Cell (WBC) Count 3.6 thou/uL (4.8-10.8)
[2021-09-28 12:30] LABS: Magnesium 2.1 mg/dL (1.6-2.6)
[2021-09-28] MEDS ORDERED: Loperamide HCl 2 MG CAP PO PRN (13:28)
[2021-09-28] MEDS: Atorvastatin Calcium 20 MG TAB PO SCH (20:56)
[2021-09-28] MEDS: Cholecalciferol 1,000 UNITS (25 MCG) TAB PO SCH (20:56)
[2021-09-28] MEDS: hydrALAZINE 25 MG TAB PO SCH (20:59)
[2021-09-28] MEDS ORDERED: Non-Formulary Item 1 EACH (Hydralazine Hcl [Hydralazine Hcl] 50 MG Tablet) PO SCH (21:00)
[2021-09-28] MEDS ORDERED: Amlodipine 5 MG TAB PO SCH ×2 (21:00)
[2021-09-28] MEDS: Benzonatate 100 MG CAP PO PRN (21:01)
[2021-09-29] MEDS: hydrALAZINE 20 MG/ML VIAL SLOW IVP PRN (06:26)
[2021-09-29 08:33] LABS: Anion Gap 13 mmol/L (10-20); BUN (Urea Nitrogen) 23 mg/dL (8.4-25.7); Calc. Creatinine Clearance 67 mL/min (70-130); Calcium 8.6 mg/dL (7.8-10.44); Carbon Dioxide 19 mmol/L (23-31); Chloride 113 mmol/L (98-107); Glucose 149 mg/dL (80-115); Potassium 3.8 mmol/L (3.5-5.1); Sodium 141 mmol/L (136-145)
[2021-09-29 08:36] LABS: #Eosinphils 0.1 thou/uL (0.0-0.7); #Lymphocytes 0.9 thou/uL (1.20-3.40); #Monocytes 0.6 thou/uL (0.11-0.59); #Neutrophils 3.3 thou/uL (1.40-6.50); %Basophils 0.4 % (0.0-1.0); %Eosinophils 1.4 % (0.0-10.0); %Lymphocytes 19.2 % (21.0-51.0); %Monocytes 11.3 % (0.0-10.0); %Neutrophils 67.8 % (42.0-75.0); Hemoglobin 12.8 g/dL (14.0-18.0); Mean Corpuscular HGB CONC 32.2 g/dL (32.0-36.0); Mean Corpuscular Hemoglobin 29.6 pg (27.0-31.0); Mean Corpuscular Volume 91.8 fL (78.0-98.0); Mean Platelet Volume 6.6 fL (7.4-10.4); Platelet Count 198 thou/uL (130-400); RBC Distribution Width 12.5 % (11.5-14.5); Red Blood Cell (RBC) Count 4.32 mill/uL (4.70-6.10); White Blood Cell (WBC) Count 4.9 thou/uL (4.8-10.8)
[2021-09-29] MEDS ORDERED: Furosemide 20 MG TAB PO SCH (09:00)
[2021-09-29] MEDS ORDERED: Non-Formulary Item 1 EACH (Hydralazine Hcl [Hydralazine Hcl] 50 MG Tablet) PO SCH (09:00)
[2021-09-29] MEDS ORDERED: Aspirin 81 mg Enteric Coated Tablet PO SCH (09:00)
[2021-09-29] MEDS: Amlodipine 5 MG TAB PO SCH (09:02)
[2021-09-29] MEDS: Aspirin 81 mg Enteric Coated Tablet PO SCH (09:02)
[2021-09-29] MEDS: hydrALAZINE 25 MG TAB PO SCH ×2 (09:03→20:36)
[2021-09-29] MEDS: Zinc Sulfate 220 MG CAP PO SCH (09:04)
[2021-09-29] MEDS: Ascorbic Acid 500 mg Chewable Tablet PO SCH (09:04)
[2021-09-29] MEDS: Clopidogrel Bisulfate 75 MG TAB PO SCH (09:04)
[2021-09-29] MEDS: Carvedilol 6.25 MG TAB PO SCH ×2 (09:04→20:37)
[2021-09-29] MEDS: Dextrose 5 % And 0.9 % NaCl 1,000 ML IV SCH (11:13)
[2021-09-29 13:08] VITALS: BMI 26.9
[2021-09-29] MEDS: Atorvastatin Calcium 20 MG TAB PO SCH (20:35)
[2021-09-29] MEDS: Cholecalciferol 1,000 UNITS (25 MCG) TAB PO SCH (20:36)
[2021-09-29] MEDS: Acetaminophen 325 MG TAB PO PRN (20:36)
[2021-09-30] MEDS: hydrALAZINE 20 MG/ML VIAL SLOW IVP PRN ×2 (00:26→05:46)
[2021-09-30] MEDS: Aspirin 81 mg Enteric Coated Tablet PO SCH (08:06)
[2021-09-30] MEDS: Clopidogrel Bisulfate 75 MG TAB PO SCH (08:07)
[2021-09-30] MEDS: Amlodipine 5 MG TAB PO SCH (08:07)
[2021-09-30] MEDS: Ascorbic Acid 500 mg Chewable Tablet PO SCH (08:07)
[2021-09-30] MEDS: Zinc Sulfate 220 MG CAP PO SCH (08:07)
[2021-09-30] MEDS: Carvedilol 6.25 MG TAB PO SCH ×2 (08:08→20:52)
[2021-09-30] MEDS: hydrALAZINE 25 MG TAB PO SCH ×2 (08:09→20:52)
[2021-09-30] MEDS ORDERED: Lisinopril 20 MG TAB PO SCH (09:30)
[2021-09-30] MEDS ORDERED: Polyethylene Glycol 3350 17 GM Packet PO SCH (10:30)
[2021-09-30] MEDS: Atorvastatin Calcium 20 MG TAB PO SCH (20:48)
[2021-09-30] MEDS: Lisinopril 20 MG TAB PO SCH (20:48)
[2021-09-30] MEDS: Cholecalciferol 1,000 UNITS (25 MCG) TAB PO SCH (20:48)
[2021-10-01] MEDS: hydrALAZINE 20 MG/ML VIAL SLOW IVP PRN ×3 (01:33→19:42)
[2021-10-01] MEDS ORDERED: Amlodipine 5 MG TAB PO SCH (09:00)
[2021-10-01] MEDS: Aspirin 81 mg Enteric Coated Tablet PO SCH (09:20)
[2021-10-01] MEDS: Zinc Sulfate 220 MG CAP PO SCH (09:21)
[2021-10-01] MEDS: hydrALAZINE 25 MG TAB PO SCH ×2 (09:21→20:57)
[2021-10-01] MEDS: Ascorbic Acid 500 mg Chewable Tablet PO SCH (09:21)
[2021-10-01] MEDS: Clopidogrel Bisulfate 75 MG TAB PO SCH (09:21)
[2021-10-01] MEDS: Carvedilol 6.25 MG TAB PO SCH ×2 (09:21→20:57)
[2021-10-01] MEDS: Lisinopril 20 MG TAB PO SCH ×2 (09:22→20:57)
[2021-10-01 11:26] LABS: Anion Gap 14 mmol/L (10-20); BUN (Urea Nitrogen) 22 mg/dL (8.4-25.7); Calc. Creatinine Clearance 80 mL/min (70-130); Carbon Dioxide 20 mmol/L (23-31); Chloride 110 mmol/L (98-107); Glucose 156 mg/dL (80-115); Potassium 3.7 mmol/L (3.5-5.1); Sodium 140 mmol/L (136-145)
[2021-10-01] MEDS ORDERED: Megestrol Acetate 40 MG TAB PO SCH (15:30)
[2021-10-01] MEDS: Cholecalciferol 1,000 UNITS (25 MCG) TAB PO SCH (20:57)
[2021-10-01] MEDS: Atorvastatin Calcium 20 MG TAB PO SCH (20:58)
[2021-10-02] MEDS: hydrALAZINE 20 MG/ML VIAL SLOW IVP PRN ×2 (05:14→05:58)
[2021-10-02] MEDS: Carvedilol 6.25 MG TAB PO SCH ×2 (07:52→16:10)
[2021-10-02] MEDS: hydrALAZINE 25 MG TAB PO SCH ×2 (07:53→21:27)
[2021-10-02] MEDS: Aspirin 81 mg Enteric Coated Tablet PO SCH (07:54)
[2021-10-02] MEDS: Ascorbic Acid 500 mg Chewable Tablet PO SCH (07:54)
[2021-10-02] MEDS: Clopidogrel Bisulfate 75 MG TAB PO SCH (07:54)
[2021-10-02] MEDS: Lisinopril 20 MG TAB PO SCH ×2 (07:54→21:28)
[2021-10-02] MEDS: Zinc Sulfate 220 MG CAP PO SCH (07:54)
[2021-10-02] MEDS: Amlodipine 10 MG TAB PO SCH (07:54)
[2021-10-02] MEDS: Megestrol Acetate 40 MG TAB PO SCH (07:55)
[2021-10-02] MEDS: Atorvastatin Calcium 20 MG TAB PO SCH (21:27)
[2021-10-02] MEDS: Cholecalciferol 1,000 UNITS (25 MCG) TAB PO SCH (21:28)
[2021-10-03] MEDS: Aspirin 81 mg Enteric Coated Tablet PO SCH (09:24)
[2021-10-03] MEDS: Ascorbic Acid 500 mg Chewable Tablet PO SCH (09:24)
[2021-10-03] MEDS: Lisinopril 20 MG TAB PO SCH ×2 (09:24→21:05)
[2021-10-03] MEDS: Megestrol Acetate 40 MG TAB PO SCH (09:25)
[2021-10-03] MEDS: Zinc Sulfate 220 MG CAP PO SCH (09:25)
[2021-10-03] MEDS: Clopidogrel Bisulfate 75 MG TAB PO SCH (09:25)
[2021-10-03] MEDS: Amlodipine 10 MG TAB PO SCH (09:25)
[2021-10-03] MEDS: Carvedilol 6.25 MG TAB PO SCH ×2 (09:26→17:00)
[2021-10-03] MEDS: hydrALAZINE 25 MG TAB PO SCH ×2 (09:27→21:05)
[2021-10-03] MEDS: Atorvastatin Calcium 20 MG TAB PO SCH (21:04)
[2021-10-03] MEDS: Cholecalciferol 1,000 UNITS (25 MCG) TAB PO SCH (21:04)
[2021-10-04] MEDS: Carvedilol 6.25 MG TAB PO SCH ×2 (08:31→16:57)
[2021-10-04] MEDS: Amlodipine 10 MG TAB PO SCH (08:31)
[2021-10-04] MEDS: Clopidogrel Bisulfate 75 MG TAB PO SCH (08:32)
[2021-10-04] MEDS: Aspirin 81 mg Enteric Coated Tablet PO SCH (08:32)
[2021-10-04] MEDS: Ascorbic Acid 500 mg Chewable Tablet PO SCH (08:32)
[2021-10-04] MEDS: Lisinopril 20 MG TAB PO SCH ×2 (08:33→21:03)
[2021-10-04] MEDS: Megestrol Acetate 40 MG TAB PO SCH (08:33)
[2021-10-04] MEDS: Zinc Sulfate 220 MG CAP PO SCH (08:33)
[2021-10-04] MEDS: hydrALAZINE 25 MG TAB PO SCH ×2 (08:34→21:02)
[2021-10-04] MEDS ORDERED: Dextrose 5% in Water 1,000 ML IV PRN (15:17)
[2021-10-04] MEDS ORDERED: Dextrose 50% Abboject 50 ML SYRINGE SLOW IVP PRN (15:17)
[2021-10-04] MEDS: HumaLOG 300 UNITS/3 ML VIAL SC PRN ×2 (16:40→21:07)
[2021-10-04] MEDS: Atorvastatin Calcium 20 MG TAB PO SCH (21:02)
[2021-10-04] MEDS: Cholecalciferol 1,000 UNITS (25 MCG) TAB PO SCH (21:03)
[2021-10-05] MEDS: HumaLOG 300 UNITS/3 ML VIAL SC PRN ×3 (05:04→17:35)
[2021-10-05] MEDS: Carvedilol 6.25 MG TAB PO SCH ×2 (08:23→17:36)
[2021-10-05] MEDS: hydrALAZINE 25 MG TAB PO SCH ×2 (08:23→20:59)
[2021-10-05] MEDS: Lisinopril 20 MG TAB PO SCH ×2 (08:24→20:58)
[2021-10-05] MEDS: Megestrol Acetate 40 MG TAB PO SCH (08:24)
[2021-10-05] MEDS: Aspirin 81 mg Enteric Coated Tablet PO SCH (08:24)
[2021-10-05] MEDS: Ascorbic Acid 500 mg Chewable Tablet PO SCH (08:24)
[2021-10-05] MEDS: Amlodipine 10 MG TAB PO SCH (08:24)
[2021-10-05] MEDS: Zinc Sulfate 220 MG CAP PO SCH (08:24)
[2021-10-05] MEDS: Clopidogrel Bisulfate 75 MG TAB PO SCH (08:25)
[2021-10-05 08:32] LABS: #Eosinphils 0.2 thou/uL (0.0-0.7); #Lymphocytes 0.9 thou/uL (1.20-3.40); #Monocytes 0.6 thou/uL (0.11-0.59); #Neutrophils 4.8 thou/uL (1.40-6.50); %Basophils 0.2 % (0.0-1.0); %Eosinophils 2.6 % (0.0-10.0); %Lymphocytes 13.7 % (21.0-51.0); %Monocytes 9.8 % (0.0-10.0); %Neutrophils 73.7 % (42.0-75.0); Hemoglobin 12.6 g/dL (14.0-18.0); Mean Corpuscular Hemoglobin 29.6 pg (27.0-31.0); Mean Corpuscular Volume 89.8 fL (78.0-98.0); Mean Platelet Volume 6.3 fL (7.4-10.4); Platelet Count 248 thou/uL (130-400); RBC Distribution Width 12.2 % (11.5-14.5); Red Blood Cell (RBC) Count 4.24 mill/uL (4.70-6.10); White Blood Cell (WBC) Count 6.6 thou/uL (4.8-10.8)
[2021-10-05 09:06] LABS: Anion Gap 11 mmol/L (10-20); BUN (Urea Nitrogen) 18 mg/dL (8.4-25.7); Calc. Creatinine Clearance 88 mL/min (70-130); Calcium 8.9 mg/dL (7.8-10.44); Carbon Dioxide 22 mmol/L (23-31); Chloride 110 mmol/L (98-107); Glucose 192 mg/dL (80-115); Potassium 3.7 mmol/L (3.5-5.1); Sodium 139 mmol/L (136-145)
[2021-10-05] MEDS: Cholecalciferol 1,000 UNITS (25 MCG) TAB PO SCH (20:58)
[2021-10-05] MEDS: Benzonatate 100 MG CAP PO PRN (20:58)
[2021-10-05] MEDS: Atorvastatin Calcium 20 MG TAB PO SCH (20:58)
[2021-10-05] MEDS: Lantus 1000 UNITS/10 ML VIAL SC SCH (21:00)
[2021-10-06] MEDS: Ascorbic Acid 500 mg Chewable Tablet PO SCH (08:29)
[2021-10-06] MEDS: hydrALAZINE 25 MG TAB PO SCH ×2 (08:29→21:16)
[2021-10-06] MEDS: Zinc Sulfate 220 MG CAP PO SCH (08:29)
[2021-10-06] MEDS: Carvedilol 6.25 MG TAB PO SCH ×2 (08:30→16:54)
[2021-10-06] MEDS: Lisinopril 20 MG TAB PO SCH ×2 (08:30→21:16)
[2021-10-06] MEDS: Aspirin 81 mg Enteric Coated Tablet PO SCH (08:30)
[2021-10-06] MEDS: Clopidogrel Bisulfate 75 MG TAB PO SCH (08:30)
[2021-10-06] MEDS: Amlodipine 10 MG TAB PO SCH (08:30)
[2021-10-06] MEDS: HumaLOG 300 UNITS/3 ML VIAL SC PRN ×2 (11:58→16:58)
[2021-10-06] MEDS: Atorvastatin Calcium 20 MG TAB PO SCH (21:16)
[2021-10-06] MEDS: Acetaminophen 325 MG TAB PO PRN (21:17)
[2021-10-06] MEDS: Cholecalciferol 1,000 UNITS (25 MCG) TAB PO SCH (21:17)
[2021-10-06] MEDS: Benzonatate 100 MG CAP PO PRN (21:17)
[2021-10-06] MEDS: Lantus 1000 UNITS/10 ML VIAL SC SCH (21:32)
[2021-10-07] MEDS: HumaLOG 300 UNITS/3 ML VIAL SC PRN ×2 (05:32→21:08)
[2021-10-07] MEDS: Ascorbic Acid 500 mg Chewable Tablet PO SCH (08:00)
[2021-10-07] MEDS: Zinc Sulfate 220 MG CAP PO SCH (08:00)
[2021-10-07] MEDS: Benzonatate 100 MG CAP PO PRN (08:01)
[2021-10-07] MEDS: Carvedilol 6.25 MG TAB PO SCH ×2 (08:01→18:05)
[2021-10-07] MEDS: Lisinopril 20 MG TAB PO SCH ×2 (08:01→21:05)
[2021-10-07] MEDS: Aspirin 81 mg Enteric Coated Tablet PO SCH (08:01)
[2021-10-07] MEDS: Clopidogrel Bisulfate 75 MG TAB PO SCH (08:02)
[2021-10-07] MEDS: Acetaminophen 325 MG TAB PO PRN ×2 (08:02→21:07)
[2021-10-07] MEDS: hydrALAZINE 25 MG TAB PO SCH ×2 (08:02→21:05)
[2021-10-07] MEDS: Amlodipine 10 MG TAB PO SCH (08:02)
[2021-10-07] MEDS: Atorvastatin Calcium 20 MG TAB PO SCH (21:06)
[2021-10-07] MEDS: Cholecalciferol 1,000 UNITS (25 MCG) TAB PO SCH (21:07)
[2021-10-07] MEDS: Lantus 1000 UNITS/10 ML VIAL SC SCH (21:07)
[2021-10-08] MEDS: HumaLOG 300 UNITS/3 ML VIAL SC PRN ×3 (05:11→20:22)
[2021-10-08] MEDS: hydrALAZINE 25 MG TAB PO SCH ×2 (08:03→20:22)
[2021-10-08] MEDS: Aspirin 81 mg Enteric Coated Tablet PO SCH (08:03)
[2021-10-08] MEDS: Ascorbic Acid 500 mg Chewable Tablet PO SCH (08:04)
[2021-10-08] MEDS: Carvedilol 6.25 MG TAB PO SCH ×2 (08:04→17:58)
[2021-10-08] MEDS: Amlodipine 10 MG TAB PO SCH (08:04)
[2021-10-08] MEDS: Clopidogrel Bisulfate 75 MG TAB PO SCH (08:04)
[2021-10-08] MEDS: Benzonatate 100 MG CAP PO PRN (08:04)
[2021-10-08] MEDS: Zinc Sulfate 220 MG CAP PO SCH (08:04)
[2021-10-08] MEDS: Lisinopril 20 MG TAB PO SCH ×2 (08:04→20:23)
[2021-10-08] MEDS: Acetaminophen 325 MG TAB PO PRN ×2 (08:04→20:23)
[2021-10-08] MEDS: Lantus 1000 UNITS/10 ML VIAL SC SCH (20:21)
[2021-10-08] MEDS: Atorvastatin Calcium 20 MG TAB PO SCH (20:23)
[2021-10-08] MEDS: Cholecalciferol 1,000 UNITS (25 MCG) TAB PO SCH (20:23)
[2021-10-09] MEDS: HumaLOG 300 UNITS/3 ML VIAL SC PRN ×4 (05:26→22:12)
[2021-10-09] MEDS: Carvedilol 6.25 MG TAB PO SCH ×2 (08:12→17:23)
[2021-10-09] MEDS: hydrALAZINE 25 MG TAB PO SCH ×2 (08:12→22:09)
[2021-10-09] MEDS: Aspirin 81 mg Enteric Coated Tablet PO SCH (08:12)
[2021-10-09] MEDS: Zinc Sulfate 220 MG CAP PO SCH (08:13)
[2021-10-09] MEDS: Amlodipine 10 MG TAB PO SCH (08:13)
[2021-10-09] MEDS: Lisinopril 20 MG TAB PO SCH ×2 (08:13→22:10)
[2021-10-09] MEDS: Clopidogrel Bisulfate 75 MG TAB PO SCH (08:13)
[2021-10-09] MEDS: Ascorbic Acid 500 mg Chewable Tablet PO SCH (08:13)
[2021-10-09] MEDS ORDERED: glipiZIDE 10 MG TAB PO SCH (17:00)
[2021-10-09] MEDS: Benzonatate 100 MG CAP PO PRN (22:09)
[2021-10-09] MEDS: Cholecalciferol 1,000 UNITS (25 MCG) TAB PO SCH (22:10)
[2021-10-09] MEDS: Acetaminophen 325 MG TAB PO PRN (22:11)
[2021-10-09] MEDS: Atorvastatin Calcium 20 MG TAB PO SCH (22:11)
[2021-10-09] MEDS: Lantus 1000 UNITS/10 ML VIAL SC SCH (22:12)
[2021-10-10] MEDS: HumaLOG 300 UNITS/3 ML VIAL SC PRN ×4 (05:21→22:04)
[2021-10-10] MEDS: Amlodipine 10 MG TAB PO SCH (08:10)
[2021-10-10] MEDS: Lisinopril 20 MG TAB PO SCH ×2 (08:11→22:03)
[2021-10-10] MEDS: Aspirin 81 mg Enteric Coated Tablet PO SCH (08:11)
[2021-10-10] MEDS: hydrALAZINE 25 MG TAB PO SCH ×2 (08:11→22:02)
[2021-10-10] MEDS: Carvedilol 6.25 MG TAB PO SCH ×2 (08:11→16:52)
[2021-10-10] MEDS: Clopidogrel Bisulfate 75 MG TAB PO SCH (08:11)
[2021-10-10] MEDS: Ascorbic Acid 500 mg Chewable Tablet PO SCH (08:12)
[2021-10-10] MEDS: Zinc Sulfate 220 MG CAP PO SCH (08:12)
[2021-10-10] MEDS ORDERED: Hydrocerin (Eucerin) Cream 120 gm Jar TOP PRN (13:16)
[2021-10-10] MEDS ORDERED: Cepastat Lozenges 1 LOZ PO PRN (13:16)
[2021-10-10] MEDS ORDERED: Calcium Carbonate 500 MG ChewTAB PO PRN (13:16)
[2021-10-10] MEDS ORDERED: Bisacodyl 5 MG TAB PO PRN (13:16)
[2021-10-10] MEDS ORDERED: Sodium Chloride 0.65% Nasal 44 ML BOT EA NARE PRN (13:16)
[2021-10-10] MEDS ORDERED: Ondansetron PF 4 MG/2 ML Vial IVP PRN (13:16)
[2021-10-10] MEDS ORDERED: Artificial Tear Sol 15 ML BOT EA EYE PRN (13:16)
[2021-10-10] MEDS ORDERED: Loratadine 10 MG TAB PO PRN (13:16)
[2021-10-10] MEDS: Senokot S 8.6-50 MG TAB PO PRN (16:52)
[2021-10-10] MEDS ORDERED: Labetalol HCl 100 MG/20 ML VIAL ONE (16:58)
[2021-10-10] MEDS: Atorvastatin Calcium 20 MG TAB PO SCH (22:02)
[2021-10-10] MEDS: Cholecalciferol 1,000 UNITS (25 MCG) TAB PO SCH (22:03)
[2021-10-10] MEDS: Benzonatate 100 MG CAP PO PRN (22:04)
[2021-10-10] MEDS: Lantus 1000 UNITS/10 ML VIAL SC SCH (22:05)
[2021-10-11] MEDS: Acetaminophen 325 MG TAB PO PRN (01:41)
[2021-10-11] MEDS: HumaLOG 300 UNITS/3 ML VIAL SC PRN ×4 (05:27→23:19)
[2021-10-11 07:47] LABS: #Eosinphils 0.2 thou/uL (0.0-0.7); #Lymphocytes 1.2 thou/uL (1.20-3.40); #Monocytes 0.5 thou/uL (0.11-0.59); #Neutrophils 5.3 thou/uL (1.40-6.50); %Basophils 0.1 % (0.0-1.0); %Eosinophils 2.8 % (0.0-10.0); %Lymphocytes 16.1 % (21.0-51.0); %Monocytes 7.5 % (0.0-10.0); %Neutrophils 73.5 % (42.0-75.0); Hemoglobin 12.1 g/dL (14.0-18.0); Mean Corpuscular HGB CONC 32.6 g/dL (32.0-36.0); Mean Corpuscular Hemoglobin 29.9 pg (27.0-31.0); Mean Corpuscular Volume 91.7 fL (78.0-98.0); Mean Platelet Volume 6.6 fL (7.4-10.4); Platelet Count 312 thou/uL (130-400); RBC Distribution Width 12.2 % (11.5-14.5); Red Blood Cell (RBC) Count 4.04 mill/uL (4.70-6.10); White Blood Cell (WBC) Count 7.2 thou/uL (4.8-10.8)
[2021-10-11 07:58] LABS: Anion Gap 11 mmol/L (10-20); BUN (Urea Nitrogen) 17 mg/dL (8.4-25.7); Calc. Creatinine Clearance 77 mL/min (70-130); Calcium 9.5 mg/dL (7.8-10.44); Carbon Dioxide 24 mmol/L (23-31); Chloride 108 mmol/L (98-107); Glucose 264 mg/dL (80-115); Magnesium 1.9 mg/dL (1.6-2.6); Phosphorus 2.5 mg/dL (2.3-4.7); Potassium 3.9 mmol/L (3.5-5.1); Sodium 139 mmol/L (136-145)
[2021-10-11] MEDS: hydrALAZINE 25 MG TAB PO SCH ×2 (08:37→23:19)
[2021-10-11] MEDS: Aspirin 81 mg Enteric Coated Tablet PO SCH (08:37)
[2021-10-11] MEDS: Carvedilol 6.25 MG TAB PO SCH ×2 (08:38→16:43)
[2021-10-11] MEDS: Zinc Sulfate 220 MG CAP PO SCH (08:38)
[2021-10-11] MEDS: Lisinopril 20 MG TAB PO SCH ×2 (08:38→23:18)
[2021-10-11] MEDS: Clopidogrel Bisulfate 75 MG TAB PO SCH (08:38)
[2021-10-11] MEDS: Ascorbic Acid 500 mg Chewable Tablet PO SCH (08:39)
[2021-10-11] MEDS: Amlodipine 10 MG TAB PO SCH (08:51)
[2021-10-11] MEDS ORDERED: Magnesium 2 GM/50 ML 2 GM in Premix Bag 1 BAG IVPB SCH (11:45)
[2021-10-11] MEDS: Cholecalciferol 1,000 UNITS (25 MCG) TAB PO SCH (23:18)
[2021-10-11] MEDS: Atorvastatin Calcium 20 MG TAB PO SCH (23:18)
[2021-10-11] MEDS: Lantus 1000 UNITS/10 ML VIAL SC SCH (23:19)
[2021-10-12] MEDS: HumaLOG 300 UNITS/3 ML VIAL SC PRN ×3 (05:12→18:09)
[2021-10-12] MEDS: Ascorbic Acid 500 mg Chewable Tablet PO SCH (08:01)
[2021-10-12] MEDS: Clopidogrel Bisulfate 75 MG TAB PO SCH (08:01)
[2021-10-12] MEDS: Carvedilol 6.25 MG TAB PO SCH ×2 (08:01→18:08)
[2021-10-12] MEDS: hydrALAZINE 25 MG TAB PO SCH ×2 (08:03→21:22)
[2021-10-12] MEDS: Lisinopril 20 MG TAB PO SCH ×2 (08:04→21:22)
[2021-10-12] MEDS: Zinc Sulfate 220 MG CAP PO SCH (08:04)
[2021-10-12] MEDS: Amlodipine 10 MG TAB PO SCH (08:04)
[2021-10-12] MEDS: Aspirin 81 mg Enteric Coated Tablet PO SCH (08:04)
[2021-10-12 08:06] LABS: Magnesium 2.2 mg/dL (1.6-2.6)
[2021-10-12] MEDS: Senokot S 8.6-50 MG TAB PO PRN ×2 (10:09→10:11)
[2021-10-12] MEDS: Atorvastatin Calcium 20 MG TAB PO SCH (21:21)
[2021-10-12] MEDS: Cholecalciferol 1,000 UNITS (25 MCG) TAB PO SCH (21:22)
[2021-10-12] MEDS: Lantus 1000 UNITS/10 ML VIAL SC SCH (21:22)
[2021-10-12] MEDS: Acetaminophen 325 MG TAB PO PRN (21:22)
[2021-10-13] MEDS: HumaLOG 300 UNITS/3 ML VIAL SC PRN ×3 (04:58→16:48)
[2021-10-13] MEDS: Carvedilol 6.25 MG TAB PO SCH ×2 (08:01→16:47)
[2021-10-13] MEDS: Amlodipine 10 MG TAB PO SCH (08:02)
[2021-10-13] MEDS: hydrALAZINE 25 MG TAB PO SCH ×2 (08:02→20:57)
[2021-10-13] MEDS: Ascorbic Acid 500 mg Chewable Tablet PO SCH (08:03)
[2021-10-13] MEDS: Lisinopril 20 MG TAB PO SCH ×2 (08:03→20:56)
[2021-10-13] MEDS: Aspirin 81 mg Enteric Coated Tablet PO SCH (08:03)
[2021-10-13] MEDS: Clopidogrel Bisulfate 75 MG TAB PO SCH (08:04)
[2021-10-13] MEDS: Zinc Sulfate 220 MG CAP PO SCH (08:04)
[2021-10-13] MEDS: Lantus 1000 UNITS/10 ML VIAL SC SCH (20:55)
[2021-10-13] MEDS: Cholecalciferol 1,000 UNITS (25 MCG) TAB PO SCH (20:57)
[2021-10-13] MEDS: Atorvastatin Calcium 20 MG TAB PO SCH (20:57)
[2021-10-14] MEDS: HumaLOG 300 UNITS/3 ML VIAL SC PRN ×2 (06:03→17:40)
[2021-10-14] MEDS: Ascorbic Acid 500 mg Chewable Tablet PO SCH (10:20)
[2021-10-14] MEDS: hydrALAZINE 25 MG TAB PO SCH ×2 (10:21→21:02)
[2021-10-14] MEDS: Zinc Sulfate 220 MG CAP PO SCH (10:22)
[2021-10-14] MEDS: Aspirin 81 mg Enteric Coated Tablet PO SCH (10:22)
[2021-10-14] MEDS: Carvedilol 6.25 MG TAB PO SCH ×2 (10:22→17:40)
[2021-10-14] MEDS: Clopidogrel Bisulfate 75 MG TAB PO SCH (10:22)
[2021-10-14] MEDS: Lisinopril 20 MG TAB PO SCH ×2 (10:22→21:02)
[2021-10-14] MEDS: Amlodipine 10 MG TAB PO SCH (10:22)
[2021-10-14] MEDS: Atorvastatin Calcium 20 MG TAB PO SCH (21:02)
[2021-10-14] MEDS: Cholecalciferol 1,000 UNITS (25 MCG) TAB PO SCH (21:02)
[2021-10-14] MEDS: Lantus 1000 UNITS/10 ML VIAL SC SCH (21:04)
[2021-10-15] MEDS: Ascorbic Acid 500 mg Chewable Tablet PO SCH (09:20)
[2021-10-15] MEDS: Zinc Sulfate 220 MG CAP PO SCH (09:20)
[2021-10-15] MEDS: Carvedilol 6.25 MG TAB PO SCH (09:20)
[2021-10-15] MEDS: Amlodipine 10 MG TAB PO SCH (09:21)
[2021-10-15] MEDS: hydrALAZINE 25 MG TAB PO SCH (09:21)
[2021-10-15] MEDS: Clopidogrel Bisulfate 75 MG TAB PO SCH (09:22)
[2021-10-15] MEDS: Aspirin 81 mg Enteric Coated Tablet PO SCH (09:22)
[2021-10-15] MEDS: Lisinopril 20 MG TAB PO SCH (09:22)
[2021-10-15 12:50] VITALS: TEMP 98.9
[2021-10-15] MEDS: HumaLOG 300 UNITS/3 ML VIAL SC PRN (12:59)
[2021-10-15 14:25] VITALS: BP 133/70
== END 2021-10-15 15:38 | DRG 177 ==
LOC: ERS 07:57 → T4-A 14:31 → OBSVTOIN 09-29 16:21
PROVIDERS: ADMIT Family Medicine; ATTEND Internal Medicine
PROC: 8E0ZXY6 Isolation (ICD-10-PCS; principal; 2021-09-29)
DX: U07.1 COVID-19 (principal); J80 Acute respiratory distress syndrome; J12.82 Pneumonia due to coronavirus disease 2019; I69.951 Hemiplegia and hemiparesis following unspecified cerebrovascular disease affecting right dominant side; N17.9 Acute kidney failure, unspecified; K21.9 Gastro-esophageal reflux disease without esophagitis; E11.22 Type 2 diabetes mellitus with diabetic chronic kidney disease; E78.5 Hyperlipidemia, unspecified; N18.30 Chronic kidney disease, stage 3 unspecified; E11.51 Type 2 diabetes mellitus with diabetic peripheral angiopathy without gangrene; I12.9 Hypertensive chronic kidney disease with stage 1 through stage 4 chronic kidney disease, or unspecified chronic kidney disease; E11.649 Type 2 diabetes mellitus with hypoglycemia without coma; K59.00 Constipation, unspecified; D63.1 Anemia in chronic kidney disease; D50.9 Iron deficiency anemia, unspecified; Z79.4 Long term (current) use of insulin; Z88.0 Allergy status to penicillin; Z88.5 Allergy status to narcotic agent; Z88.8 Allergy status to other drugs, medicaments and biological substances; Z91.018 Allergy to other foods; Z79.84 Long term (current) use of oral hypoglycemic drugs; Z79.82 Long term (current) use of aspirin; Z79.899 Other long term (current) drug therapy; Z87.891 Personal history of nicotine dependence; Z98.42 Cataract extraction status, left eye; Z98.41 Cataract extraction status, right eye
CPT/HCPCS: 36415; 36416; 71045; 74018; 80048; 80053; 80061; 83036; 83735; 84100; 84484; 85025; 86140; 93005; 96372; 96374; 96375; 96376; G0378; J0360; J1650; J1815; J3475; J7042; S0179

== ENCOUNTER 2022-01-06 19:07 | Emergency (ER) | payer MEDICARE, OTHER, SELFPAY ==
[2022-01-06 20:03] LABS: #Eosinphils 0.2 thou/uL (0.0-0.7); #Lymphocytes 0.7 thou/uL (1.20-3.40); #Monocytes 0.5 thou/uL (0.11-0.59); #Neutrophils 8.4 thou/uL (1.40-6.50); %Basophils 0.5 % (0.0-1.0); %Eosinophils 1.6 % (0.0-10.0); %Lymphocytes 6.7 % (21.0-51.0); %Monocytes 5.1 % (0.0-10.0); %Neutrophils 86.1 % (42.0-75.0); Mean Corpuscular HGB CONC 32.1 g/dL (32.0-36.0); Mean Corpuscular Hemoglobin 29.7 pg (27.0-31.0); Mean Corpuscular Volume 92.5 fL (78.0-98.0); Platelet Count 319 thou/uL (130-400); RBC Distribution Width 12.8 % (11.5-14.5); Red Blood Cell (RBC) Count 3.72 mill/uL (4.70-6.10); White Blood Cell (WBC) Count 9.8 thou/uL (4.8-10.8)
[2022-01-06 20:27] LABS: ALT (SGPT) 10 U/L (8-55); AST (SGOT) 18 U/L (5-34); Albumin 3.2 g/dL (3.4-4.8); Alkaline Phosphatase 92 U/L (40-110); Anion Gap 14 mmol/L (10-20); BUN (Urea Nitrogen) 11 mg/dL (8.4-25.7); Bilirubin, Total 0.6 mg/dL (0.2-1.2); Calc. Creatinine Clearance 0 mL/min (70-130); Calcium 8.8 mg/dL (7.8-10.44); Carbon Dioxide 25 mmol/L (23-31); Chloride 105 mmol/L (98-107); Globulin 3.2 g/dL (2.4-3.5); Glucose 171 mg/dL (80-115); Potassium 4.2 mmol/L (3.5-5.1); Protein, Total 6.4 g/dL (5.8-8.1); Sodium 140 mmol/L (136-145)
== END 2022-01-06 22:05 ==
LOC: ERS 19:07
DX: K92.0 Hematemesis (principal); D64.9 Anemia, unspecified; I10 Essential (primary) hypertension; E11.9 Type 2 diabetes mellitus without complications; K21.9 Gastro-esophageal reflux disease without esophagitis; E78.5 Hyperlipidemia, unspecified; Z86.73 Personal history of transient ischemic attack (TIA), and cerebral infarction without residual deficits; Z79.4 Long term (current) use of insulin; Z79.899 Other long term (current) drug therapy
CPT/HCPCS: 36415; 80053; 83605; 83880; 84484; 85025; 86850; 86900; 86901; 93005

== ENCOUNTER 2023-07-17 08:11 | Inpatient (IN) | payer MEDICARE ==
[2023-07-17] MEDS ORDERED: Amiodarone 150 MG/3 ML VIAL ONE (08:27)
[2023-07-17] MEDS ORDERED: EPINEPHrine 1 MG/10 ML Abboject SYRINGE ONE (08:27)
[2023-07-17] MEDS ORDERED: Sodium Bicarb 50 MEQ/50 ML Abboject 8.4% SYRINGE ONE (08:27)
[2023-07-17] MEDS ORDERED: Calcium Chloride 1 GM/10 ML Abboject SYRINGE ONE (08:27)
[2023-07-17] MEDS ORDERED: Fentanyl CADD 100 ML IV SCH ×2 (08:30→12:30)
[2023-07-17] MEDS ORDERED: NOREPINEPHRINE 8 MG/250 ML-D5W 250 ML ONE (08:32)
[2023-07-17 08:40] LABS: #Monocytes 0.8 thou/uL (0.11-0.59); #Neutrophils 7.2 thou/uL (1.40-6.50); %Basophils 0.3 % (0.0-1.0); %Eosinophils 0.4 % (0.0-10.0); %Lymphocytes 22.2 % (21.0-51.0); %Monocytes 7.7 % (0.0-10.0); %Neutrophils 68.1 % (42.0-75.0); Hematocrit 40.8 % (42.0-52.0); Hemoglobin 12.5 g/dL (14.0-18.0); Mean Corpuscular HGB CONC 30.6 g/dL (32.0-36.0); Mean Corpuscular Hemoglobin 30.3 pg (27.0-31.0); Mean Corpuscular Volume 98.8 fl (78.0-98.0); Mean Platelet Volume 10.2 fL (7.4-10.4); Platelet Count 249 10x3/uL (130-400); RBC Distribution Width 14.5 % (11.5-14.5); Red Blood Cell (RBC) Count 4.13 mill/uL (4.70-6.10); White Blood Cell (WBC) Count 10.6 10x3/uL (4.8-10.8)
[2023-07-17 08:41] LABS: Analyzer IN Cardio ER; Base Excess (BEa) -23.7 mEq/L (-2.0 to +3.0); CO2 Tension 36.8 mmHg (35.0-45.0); Carboxyhemoglobin (COHb) 0.3 gm% (0.0-3.0); Hematocrit-ABG 34 % (42.0-52.0); Hemoglobin (Hb) 11.5 g/dL (14.0-18.0); O2 Tension (PaO2), arterial 208.9 mmHg (> 70.0); Potassium - ABG Lab 2.77 mmol/L (3.70-5.30)
[2023-07-17] MEDS ORDERED: Insulin Regular 300 UNITS/3 ML VIAL ONE (08:41)
[2023-07-17 08:45] LABS: Actual Bicarbonate (HCO3a) 7.7 mEq/L (22-28); Puncture Site RRA; pH, Arterial 6.939 (7.35-7.45)
[2023-07-17 09:04] LABS: Alcohol Less than 10.0 mg/dL (Less than 10); Lipase 93 U/L (8-78); Magnesium 1.8 mg/dL (1.6-2.6); Salicylate Less than 8.0 mg/dL (15.0-30.0)
[2023-07-17 09:05] LABS: Anion Gap 15 mmol/L (10-20); BUN (Urea Nitrogen) 64 mg/dL (8.4-25.7); Calc. Creatinine Clearance 0 mL/min (70-130); Carbon Dioxide 10 mmol/L (23-31); Chloride 122 mmol/L (98-107); Sodium 144 mmol/L (136-145)
[2023-07-17 09:06] LABS: ALT (SGPT) 36 U/L (8-55); AST (SGOT) 31 U/L (5-34); Albumin 3.8 g/dL (3.4-4.8); Alcohol Less than 10.0 mg/dL (Less than 10); Alkaline Phosphatase 111 U/L (40-110); Bilirubin, Total Less than 0.2 mg/dL (0.2-1.2); Calcium 8.7 mg/dL (7.8-10.44); Estimated GFR 11; Globulin 2.5 g/dL (2.4-3.5); Glucose 93 mg/dL (83-110); Protein, Total 6.3 g/dL (5.8-8.1)
[2023-07-17 09:08] LABS: Bacteria/HPF 2+ HPF (None Seen); Bilirubin Negative (Negative); Blood, Urine 2+ (Negative); CAUTI Indications for Culture Alt mental st,lethar; Clarity Extra Turbid (Clear); Glucose, Urine (Dipstick) Normal (Negative); Ketone, Urine Negative (Negative); Leukocyte 500 Leu/uL (Negative); Nitrite Negative (Negative); Protein, Urine (Dipstick) 100 mg/dL (Neg-Trace); RBC/HPF Greater than 50 HPF (0-3); Specific Gravity, Urine 1.015 (1.002-1.036); Urobilinogen Normal mg/dL (Less than 2); WBC/HPF Greater than 50 HPF (0-3); pH, Urine 5.5 (5.0-9.0)
[2023-07-17 09:12] LABS: Amphetamine Not Detected (NotDetected); Barbiturates Screen Not Detected (NotDetected); Benzodiazepine Screen Not Detected (NotDetected); Cocaine Metabolite Screen Not Detected (NotDetected); Methadone Not Detected (NotDetected); Methamphetamine Not Detected (NotDetected); Opiate Screen Not Detected (NotDetected); Oxycodone Screen Not Detected (NotDetected); Phencyclidine (PCP) Not Detected (NotDetected); THC/Cannabinoid Screen Not Detected (NotDetected); Tricyclic Screen Not Detected (NotDetected)
[2023-07-17 09:17] LABS: Sperm/HPF 4+ HPF (None Seen)
[2023-07-17 09:19] LABS: Urine Culture Reflex Yes Yes
[2023-07-17 09:23] LABS: INR-International Normal Ratio 1.4; Prothrombin Time 18.1 sec (12.0-14.7)
[2023-07-17 09:24] LABS: PTT 49.4 sec (22.9-36.1)
[2023-07-17 09:27] LABS: Analyzer IN Cardio ER; Base Excess (BEa) -20.5 mEq/L (-2.0 to +3.0); CO2 Tension 32.7 mmHg (35.0-45.0); Calcium, Ionized (arterial) 1.34 mmol/L (1.12-1.30); Carboxyhemoglobin (COHb) 0.3 gm% (0.0-3.0); Hematocrit-ABG 34 % (42.0-52.0); Hemoglobin (Hb) 11.7 g/dL (14.0-18.0)
[2023-07-17] MEDS ORDERED: Magnesium 2 GM/50 ML BAG (IN WATER) ONE (09:28)
[2023-07-17 09:30] LABS: Actual Bicarbonate (HCO3a) 8.9 mEq/L (22-28); pH, Arterial 7.051 (7.35-7.45)
[2023-07-17 09:31] LABS: ALV-art Gradient 131.625 mmHg (0-20); Puncture Site RRA
[2023-07-17 09:58] LABS: Acetaminophen Less than 10 mcg/mL (10.0-30.0)
[2023-07-17] MEDS ORDERED: Potassium Chloride 40 MEQ in Premix 1 BAG IVPB SCH (10:45)
[2023-07-17] MEDS ORDERED: Sodium Chloride 0.9% 100 ML ONE (10:47)
[2023-07-17] MEDS ORDERED: Cefepime 2 GM VIAL ONE (10:47)
[2023-07-17] MEDS ORDERED: Propofol 1,000 MG/100 ML VIAL IV ONE (11:13)
[2023-07-17 11:16] LABS: Troponin I 0.109 ng/mL (< 0.028)
[2023-07-17] MEDS ORDERED: NOREPINEPHRINE 8 MG/250 ML-D5W 250 ML IVPB PRN ×2 (11:40→11:41)
[2023-07-17] MEDS ORDERED: Ipratropium/Albuterol 3 ML NEB NEB PRN (11:40)
[2023-07-17] MEDS ORDERED: Glucagon 1 MG/ML KIT IM PRN (11:41)
[2023-07-17] MEDS ORDERED: Dextrose 50% Abboject 50 ML SYRINGE SLOW IVP PRN (11:41)
[2023-07-17] MEDS ORDERED: Dextrose 5% in Water 1,000 ML IV PRN (11:41)
[2023-07-17] MEDS ORDERED: Ventilator Sedation Protocol 1 EACH FS PRN (11:45)
[2023-07-17] MEDS ORDERED: Sodium Bicarb 50 MEQ/50 ML Abboject 8.4% SYRINGE IVP SCH ×2 (12:15→22:30)
[2023-07-17] MEDS ORDERED: Propofol BOLUS 1,000 MG/100 ML VIAL IV PRN (12:30)
[2023-07-17] MEDS ORDERED: Propofol 1,000 MG/100 ML VIAL IV PRN (12:30)
[2023-07-17] MEDS ORDERED: Fentanyl BOLUS 250 ML IVPB PRN (12:30)
[2023-07-17] MEDS ORDERED: Lorazepam 2 MG/ML VIAL SLOW IVP PRN (12:30)
[2023-07-17] MEDS ORDERED: Aspirin 81 mg Enteric Coated Tablet PER TUBE SCH (12:30)
[2023-07-17] MEDS: Potassium Chloride 20 MEQ in Premix 1 BAG IVPB SCH ×2 (12:50→13:43)
[2023-07-17 13:20] LABS: Lactic Acid 1.1 mmol/L (0.5-2.2)
[2023-07-17 13:23] LABS: Anion Gap 14 mmol/L (10-20); BUN (Urea Nitrogen) 61 mg/dL (8.4-25.7); Calc. Creatinine Clearance 0 mL/min (70-130); Carbon Dioxide 11 mmol/L (23-31); Chloride 122 mmol/L (98-107); Estimated GFR 12; Glucose 87 mg/dL (83-110); Magnesium 2.1 mg/dL (1.6-2.6); Potassium 2.9 mmol/L (3.5-5.1); Sodium 144 mmol/L (136-145)
[2023-07-17] MEDS: Famotidine/PF 20 mg/2ml Vial SLOW IVP SCH (13:34)
[2023-07-17] MEDS ORDERED: Sodium Chloride 0.45% 1,000 ML IV SCH (13:45)
[2023-07-17] MEDS ORDERED: Potassium Chloride 20 MEQ in Premix 1 BAG IVPB SCH (13:45)
[2023-07-17 13:55] LABS: CO2 Tension 33.1 mmHg (35.0-45.0); Carboxyhemoglobin (COHb) 0.9 gm% (0.0-3.0); Hematocrit-ABG 39 % (42.0-52.0); Hemoglobin (Hb) 13.4 g/dL (14.0-18.0); Potassium - ABG Lab 3.04 mmol/L (3.70-5.30)
[2023-07-17 13:57] LABS: pH, Arterial 7.161 (7.35-7.45)
[2023-07-17 13:58] LABS: Actual Bicarbonate (HCO3a) 11.6 mEq/L (22-28); O2 Tension (PaO2), arterial 47.7 mmHg (> 70.0)
[2023-07-17 14:02] LABS: ALV-art Gradient 196.125 mmHg (0-20); Puncture Site LRA
[2023-07-17] MEDS: Heparin 5,000 UNITS/ML VIAL SC SCH ×2 (15:19→20:09)
[2023-07-17 15:47] LABS: Anion Gap 13 mmol/L (10-20); BUN (Urea Nitrogen) 61 mg/dL (8.4-25.7); Calc. Creatinine Clearance 14 mL/min (70-130); Calcium 8.8 mg/dL (7.8-10.44); Carbon Dioxide 11 mmol/L (23-31); Chloride 123 mmol/L (98-107); Estimated GFR 12; Glucose 80 mg/dL (83-110); Magnesium 1.9 mg/dL (1.6-2.6); Potassium 3.2 mmol/L (3.5-5.1); Sodium 144 mmol/L (136-145)
[2023-07-17] MEDS ORDERED: Iopamidol-370 76% 500 ML MDV (1 ML CHARGE) ONE (15:51)
[2023-07-17 16:13] LABS: Troponin I 0.382 ng/mL (< 0.028)
[2023-07-17 19:12] LABS: Anion Gap 16 mmol/L (10-20); BUN (Urea Nitrogen) 64 mg/dL (8.4-25.7); Calc. Creatinine Clearance 14 mL/min (70-130); Calcium 8.3 mg/dL (7.8-10.44); Carbon Dioxide 10 mmol/L (23-31); Chloride 123 mmol/L (98-107); Estimated GFR 12; Glucose 71 mg/dL (83-110); Magnesium 1.8 mg/dL (1.6-2.6); Potassium 4.2 mmol/L (3.5-5.1); Sodium 145 mmol/L (136-145)
[2023-07-17] MEDS: Sodium Bicarbonate 150 MEQ in Dextrose 5% in Water 1,000 ML IV SCH (19:42)
[2023-07-17] MEDS ORDERED: Famotidine/PF 20 mg/2ml Vial SLOW IVP SCH (21:00)
[2023-07-17 23:51] LABS: Anion Gap 15 mmol/L (10-20); BUN (Urea Nitrogen) 62 mg/dL (8.4-25.7); Calc. Creatinine Clearance 14 mL/min (70-130); Calcium 8.4 mg/dL (7.8-10.44); Carbon Dioxide 13 mmol/L (23-31); Chloride 120 mmol/L (98-107); Estimated GFR 12; Glucose 105 mg/dL (83-110); Potassium 3.8 mmol/L (3.5-5.1); Sodium 144 mmol/L (136-145)
[2023-07-18] MEDS: Sodium Bicarbonate 150 MEQ in Dextrose 5% in Water 1,000 ML IV SCH (04:12)
[2023-07-18 05:10] LABS: ALT (SGPT) 28 U/L (8-55); AST (SGOT) 22 U/L (5-34); Albumin 2.8 g/dL (3.4-4.8); Alkaline Phosphatase 65 U/L (40-110); Anion Gap 14 mmol/L (10-20); BUN (Urea Nitrogen) 65 mg/dL (8.4-25.7); Bilirubin, Total 0.3 mg/dL (0.2-1.2); Calc. Creatinine Clearance 15 mL/min (70-130); Calcium 8.1 mg/dL (7.8-10.44); Carbon Dioxide 15 mmol/L (23-31); Chloride 120 mmol/L (98-107); Estimated GFR 12; Glucose 102 mg/dL (83-110); Magnesium 1.7 mg/dL (1.6-2.6); Phosphorus 3.7 mg/dL (2.3-4.7); Potassium 3.7 mmol/L (3.5-5.1); Protein, Total 4.8 g/dL (5.8-8.1); Sodium 145 mmol/L (136-145)
[2023-07-18 05:37] LABS: Hemoglobin 9.6 g/dL (14.0-18.0); Mean Corpuscular HGB CONC 33.1 g/dL (32.0-36.0); Mean Corpuscular Hemoglobin 30.2 pg (27.0-31.0); Mean Platelet Volume 10.1 fL (7.4-10.4); Platelet Count 173 10x3/uL (130-400); RBC Distribution Width 14.6 % (11.5-14.5); Red Blood Cell (RBC) Count 3.18 mill/uL (4.70-6.10)
[2023-07-18 05:41] LABS: Delete Auto Diff?? YES; Manual Diff?? YES; Mean Corpuscular Volume 91.2 fl (78.0-98.0)
[2023-07-18 06:05] LABS: Band 23 % (5-11); CellaVision Operator ID lab.abc; Lymphocytes 6 % (21-51); Monocytes 4 % (0-10); Neutrophil 68 % (42-75); Nucleated RBC (Manual Ct) 1 % (0); Platelet Adequacy Comment Platelets Normal; Smudge Cells 17.6 %; Total Cell Count 102; Vacuoles SLIGHT
[2023-07-18 07:16] LABS: Actual Bicarbonate (HCO3a) 17.2 mEq/L (22-28); Base Excess (BEa) -7.3 mEq/L (-2.0 to +3.0); CO2 Tension 31.1 mmHg (35.0-45.0); Calcium, Ionized (arterial) 1.16 mmol/L (1.12-1.30); Carboxyhemoglobin (COHb) 0.3 gm% (0.0-3.0); Hematocrit-ABG 29 % (42.0-52.0); Hemoglobin (Hb) 9.9 g/dL (14.0-18.0); O2 Tension (PaO2), arterial 132.4 mmHg (> 70.0); Potassium - ABG Lab 3.47 mmol/L (3.70-5.30)
[2023-07-18 07:17] LABS: Puncture Site LBA
[2023-07-18] MEDS ORDERED: FLU VACC QS2023(65UP)/MF59C/PF 60 MCG/0.5 ML SYRINGE IM ONE (09:00)
[2023-07-18] MEDS ORDERED: D5 1/2 NS w/20 mEq KCL 1,000 ML IV SCH (09:15)
[2023-07-18] MEDS ORDERED: cefTRIAXone\\ROCEPHIN 2 GM in Sodium Chloride 0.9% 100 ML IVPB SCH (09:30)
[2023-07-18] MEDS: Aspirin 81 mg Enteric Coated Tablet PER TUBE SCH (09:35)
[2023-07-18] MEDS ORDERED: Sodium Bicarbonate 150 MEQ in Dextrose 5% in Water 1,000 ML IV SCH (10:00)
[2023-07-18] MEDS: Heparin 5,000 UNITS/ML VIAL SC SCH ×3 (10:33→21:05)
[2023-07-18 10:40] LABS: Troponin I 0.617 ng/mL (< 0.028)
[2023-07-18] MEDS: Morphine 2 MG/ML VIAL SLOW IVP PRN (12:32)
[2023-07-18] MEDS: Cefepime 0.5 GM, Admixture Fee 1 EACH in Sodium Chloride 0.9% 100 ML IVPB SCH (13:12)
[2023-07-18] MEDS: D5 1/2 NS w/20 mEq KCL 1,000 ML IV SCH ×2 (13:28→21:23)
[2023-07-18] MEDS: metroNIDAZOLE 500 MG TAB PER TUBE SCH ×2 (13:32→21:05)
[2023-07-18] MEDS: Famotidine/PF 20 mg/2ml Vial SLOW IVP SCH (13:32)
[2023-07-19 05:06] LABS: Hematocrit 24.4 % (42.0-52.0); Hemoglobin 8.1 g/dL (14.0-18.0); Mean Corpuscular HGB CONC 33.2 g/dL (32.0-36.0); Mean Corpuscular Hemoglobin 29.9 pg (27.0-31.0); Mean Platelet Volume 11.2 fL (7.4-10.4); Platelet Count 131 10x3/uL (130-400); RBC Distribution Width 14.8 % (11.5-14.5); Red Blood Cell (RBC) Count 2.71 mill/uL (4.70-6.10); White Blood Cell (WBC) Count 9.1 10x3/uL (4.8-10.8)
[2023-07-19 05:27] LABS: Delete Auto Diff?? YES; Manual Diff?? YES
[2023-07-19 05:29] LABS: ALT (SGPT) 27 U/L (8-55); AST (SGOT) 23 U/L (5-34); Albumin 2.8 g/dL (3.4-4.8); Alkaline Phosphatase 63 U/L (40-110); Anion Gap 15 mmol/L (10-20); BUN (Urea Nitrogen) 65 mg/dL (8.4-25.7); Bilirubin, Total 0.5 mg/dL (0.2-1.2); Calc. Creatinine Clearance 18 mL/min (70-130); Carbon Dioxide 16 mmol/L (23-31); Chloride 118 mmol/L (98-107); Estimated GFR 15; Globulin 2.1 g/dL (2.4-3.5); Glucose 112 mg/dL (83-110); Magnesium 1.7 mg/dL (1.6-2.6); Phosphorus 2.3 mg/dL (2.3-4.7); Potassium 3.8 mmol/L (3.5-5.1); Protein, Total 4.9 g/dL (5.8-8.1); Sodium 145 mmol/L (136-145)
[2023-07-19 05:37] LABS: Critical Call Chem Troponin I RESULT DECREASING
[2023-07-19] MEDS: metroNIDAZOLE 500 MG TAB PER TUBE SCH (05:54)
[2023-07-19 06:20] LABS: Band 21 % (5-11); Burr Cells MODERATE= 6-15 cells HPF (0-1); CellaVision Operator ID LAB.JMM; Lymphocytes 8 % (21-51); Macrocytosis SLIGHT = 6-15 cells HPF (0-5); Monocytes 9 % (0-10); Neutrophil 63 % (42-75); Platelet Adequacy Comment Platelets Normal; Poikilocytosis SLIGHT = 6-15 cells HPF (0-5); Polychromasia SLIGHT = 2-3 cells HPF (0-2); Smudge Cells 9.6 %; Total Cell Count 104
[2023-07-19] MEDS: Morphine 2 MG/ML VIAL SLOW IVP PRN (08:00)
[2023-07-19 08:06] LABS: Actual Bicarbonate (HCO3a) 18.4 mEq/L (22-28); Base Excess (BEa) -6.2 mEq/L (-2.0 to +3.0); Calcium, Ionized (arterial) 1.15 mmol/L (1.12-1.30); Carboxyhemoglobin (COHb) 0.1 gm% (0.0-3.0); Hematocrit-ABG 24 % (42.0-52.0); Hemoglobin (Hb) 8.1 g/dL (14.0-18.0); O2 Tension (PaO2), arterial 101.2 mmHg (> 70.0); Potassium - ABG Lab 3.76 mmol/L (3.70-5.30); pH, Arterial 7.365 (7.35-7.45)
[2023-07-19 08:13] LABS: Puncture Site LRA
[2023-07-19] MEDS: Heparin 5,000 UNITS/ML VIAL SC SCH ×3 (08:59→21:07)
[2023-07-19] MEDS: Aspirin 81 mg Enteric Coated Tablet PER TUBE SCH (08:59)
[2023-07-19] MEDS ORDERED: Ipratropium/Albuterol 3 ML NEB NEB SCH (09:30)
[2023-07-19] MEDS: GUAIFENESIN SF SOLN 200 MG/10 ML UDCUP PO SCH ×2 (09:52→21:08)
[2023-07-19] MEDS: Scopolamine 1 mg/72 hour Patch TD SCH (09:58)
[2023-07-19] MEDS: D5 1/2 NS w/20 mEq KCL 1,000 ML IV SCH (10:02)
[2023-07-19] MEDS: Cefepime 0.5 GM, Admixture Fee 1 EACH in Sodium Chloride 0.9% 100 ML IVPB SCH (11:54)
[2023-07-19] MEDS: Ipratropium/Albuterol 3 ML NEB NEB SCH ×3 (13:50→23:53)
[2023-07-19] MEDS: Famotidine/PF 20 mg/2ml Vial SLOW IVP SCH (14:10)
[2023-07-19] MEDS ORDERED: fentaNYL 50 mcg/mL 1 mL Vial ONE (15:12)
[2023-07-19] MEDS ORDERED: fentaNYL 50 mcg/mL 1 mL Vial SLOW IVP SCH (16:45)
[2023-07-20] MEDS: D5 1/2 NS w/20 mEq KCL 1,000 ML IV SCH ×2 (00:49→14:58)
[2023-07-20 04:43] LABS: ALT (SGPT) 24 U/L (8-55); AST (SGOT) 23 U/L (5-34); Albumin 2.9 g/dL (3.4-4.8); Alkaline Phosphatase 70 U/L (40-110); Anion Gap 13 mmol/L (10-20); BUN (Urea Nitrogen) 52 mg/dL (8.4-25.7); Bilirubin, Total 0.6 mg/dL (0.2-1.2); Calc. Creatinine Clearance 26 mL/min (70-130); Calcium 8.3 mg/dL (7.8-10.44); Carbon Dioxide 17 mmol/L (23-31); Chloride 118 mmol/L (98-107); Estimated GFR 25; Globulin 2.3 g/dL (2.4-3.5); Glucose 158 mg/dL (83-110); Magnesium 1.7 mg/dL (1.6-2.6); Phosphorus 2.4 mg/dL (2.3-4.7); Potassium 4.2 mmol/L (3.5-5.1); Protein, Total 5.2 g/dL (5.8-8.1); Sodium 144 mmol/L (136-145)
[2023-07-20 04:47] LABS: Hematocrit 23.8 % (42.0-52.0); Hemoglobin 7.8 g/dL (14.0-18.0); Mean Corpuscular HGB CONC 32.8 g/dL (32.0-36.0); Mean Corpuscular Hemoglobin 29.8 pg (27.0-31.0); Mean Corpuscular Volume 90.8 fl (78.0-98.0); Mean Platelet Volume 10.8 fL (7.4-10.4); Platelet Count 142 10x3/uL (130-400); RBC Distribution Width 14.9 % (11.5-14.5); Red Blood Cell (RBC) Count 2.62 mill/uL (4.70-6.10); White Blood Cell (WBC) Count 9.7 10x3/uL (4.8-10.8)
[2023-07-20 04:48] LABS: Delete Auto Diff?? YES; Manual Diff?? YES
[2023-07-20 05:30] LABS: Band 3 % (5-11); Burr Cells SLIGHT = 2-5 cells HPF (0-1); CellaVision Operator ID lab.abc; Lymphocytes 4 % (21-51); Monocytes 1 % (0-10); Neutrophil 92 % (42-75); Platelet Adequacy Comment Platelets Normal; RBC Morphology Within Normal Limits; Smudge Cells 12.9 %; Total Cell Count 101
[2023-07-20] MEDS: Ipratropium/Albuterol 3 ML NEB NEB SCH ×4 (06:27→23:14)
[2023-07-20] MEDS: Heparin 5,000 UNITS/ML VIAL SC SCH ×2 (09:35→21:00)
[2023-07-20] MEDS: Aspirin 81 mg Enteric Coated Tablet PER TUBE SCH ×2 (09:35→09:48)
[2023-07-20] MEDS: GUAIFENESIN SF SOLN 200 MG/10 ML UDCUP PO SCH ×2 (09:35→21:00)
[2023-07-20] MEDS: Insulin Regular 300 UNITS/3 ML VIAL SC PRN ×2 (09:42→21:29)
[2023-07-20] MEDS: Aspirin Chewable 81 MG TAB PER TUBE SCH (09:51)
[2023-07-20 12:43] LABS: Hematocrit 22.9 % (42.0-52.0); Hemoglobin 7.6 g/dL (14.0-18.0)
[2023-07-20] MEDS ORDERED: Docusate Sodium 100 MG/10 ML UDCUP PO SCH (12:45)
[2023-07-20] MEDS ORDERED: Polyethylene Glycol 3350 17 GM Packet PO SCH (12:45)
[2023-07-20] MEDS: Cefepime 0.5 GM, Admixture Fee 1 EACH in Sodium Chloride 0.9% 100 ML IVPB SCH (13:19)
[2023-07-20] MEDS: Famotidine/PF 20 mg/2ml Vial SLOW IVP SCH (13:20)
[2023-07-20] MEDS ORDERED: Magnesium 2 GM/50 ML(in water) 2 GM in Premix 1 BAG IVPB SCH (16:45)
[2023-07-20] MEDS ORDERED: Labetalol HCl 100 MG/20 ML VIAL SLOW IVP PRN (17:07)
[2023-07-20] MEDS: Labetalol HCl 100 MG/20 ML VIAL SLOW IVP PRN (20:59)
[2023-07-20] MEDS: Famotidine 20 MG TAB PO SCH (21:00)
[2023-07-20] MEDS ORDERED: Acetaminophen 500 MG TAB PER TUBE SCH (23:00)
[2023-07-21] MEDS: Labetalol HCl 100 MG/20 ML VIAL SLOW IVP PRN ×2 (02:15→23:02)
[2023-07-21] MEDS: D5 1/2 NS w/20 mEq KCL 1,000 ML IV SCH ×2 (04:03→18:13)
[2023-07-21 04:26] LABS: #Eosinphils 0.2 thou/uL (0.0-0.7); #Neutrophils 8.4 thou/uL (1.40-6.50); %Basophils 0.2 % (0.0-1.0); %Eosinophils 2.1 % (0.0-10.0); %Monocytes 9.4 % (0.0-10.0); %Neutrophils 79.7 % (42.0-75.0); Hematocrit 23.9 % (42.0-52.0); Hemoglobin 7.8 g/dL (14.0-18.0); Mean Corpuscular HGB CONC 32.6 g/dL (32.0-36.0); Mean Corpuscular Hemoglobin 30.1 pg (27.0-31.0); Mean Corpuscular Volume 92.3 fl (78.0-98.0); Mean Platelet Volume 10.4 fL (7.4-10.4); Platelet Count 132 10x3/uL (130-400); RBC Distribution Width 14.9 % (11.5-14.5); Red Blood Cell (RBC) Count 2.59 mill/uL (4.70-6.10); White Blood Cell (WBC) Count 10.5 10x3/uL (4.8-10.8)
[2023-07-21] MEDS: hydrALAZINE 20 MG/ML VIAL SLOW IVP PRN ×3 (05:09→15:32)
[2023-07-21] MEDS: Ipratropium/Albuterol 3 ML NEB NEB SCH ×4 (07:11→23:22)
[2023-07-21 08:55] LABS: Alkaline Phosphatase 74 U/L (40-110); Anion Gap 12 mmol/L (10-20); BUN (Urea Nitrogen) 37 mg/dL (8.4-25.7); Bilirubin, Total 0.6 mg/dL (0.2-1.2); Calc. Creatinine Clearance 40 mL/min (70-130); Calcium 8.7 mg/dL (7.8-10.44); Carbon Dioxide 18 mmol/L (23-31); Chloride 117 mmol/L (98-107); Estimated GFR 38; Globulin 2.5 g/dL (2.4-3.5); Glucose 144 mg/dL (83-110); Phosphorus 2.1 mg/dL (2.3-4.7); Potassium 4.3 mmol/L (3.5-5.1); Protein, Total 5.5 g/dL (5.8-8.1); Sodium 143 mmol/L (136-145)
[2023-07-21 08:56] LABS: ALT (SGPT) 22 U/L (8-55); AST (SGOT) 18 U/L (5-34)
[2023-07-21] MEDS: Polyethylene Glycol 3350 17 GM Packet PO SCH (08:58)
[2023-07-21] MEDS: GUAIFENESIN SF SOLN 200 MG/10 ML UDCUP PO SCH ×2 (08:58→22:06)
[2023-07-21] MEDS: Docusate Sodium 100 MG/10 ML UDCUP PO SCH (08:58)
[2023-07-21] MEDS: Aspirin Chewable 81 MG TAB PER TUBE SCH (08:58)
[2023-07-21] MEDS: Heparin 5,000 UNITS/ML VIAL SC SCH ×2 (09:17→22:06)
[2023-07-21] MEDS: Cefepime 0.5 GM, Admixture Fee 1 EACH in Sodium Chloride 0.9% 100 ML IVPB SCH (12:52)
[2023-07-21] MEDS ORDERED: Sodium Phosphate 30 MMOL in Sodium Chloride 0.9% 250 ML 250 ML IVPB SCH (13:30)
[2023-07-21 18:24] LABS: Magnesium 1.9 mg/dL (1.6-2.6); Phosphorus 3.3 mg/dL (2.3-4.7)
[2023-07-22] MEDS: hydrALAZINE 20 MG/ML VIAL SLOW IVP PRN ×2 (00:33→17:31)
[2023-07-22] MEDS: Labetalol HCl 100 MG/20 ML VIAL SLOW IVP PRN ×2 (04:13→20:20)
[2023-07-22] MEDS: D5 1/2 NS w/20 mEq KCL 1,000 ML IV SCH (07:05)
[2023-07-22] MEDS: Ipratropium/Albuterol 3 ML NEB NEB SCH ×4 (07:09→23:12)
[2023-07-22] MEDS ORDERED: Cefepime 1 GM in Sodium Chloride 0.9% 100 ML IVPB SCH (08:00)
[2023-07-22 09:01] LABS: #Eosinphils 0.3 thou/uL (0.0-0.7); #Neutrophils 8.4 thou/uL (1.40-6.50); %Basophils 0.1 % (0.0-1.0); %Eosinophils 2.8 % (0.0-10.0); %Lymphocytes 5.1 % (21.0-51.0); %Monocytes 9.9 % (0.0-10.0); %Neutrophils 81.4 % (42.0-75.0); Hematocrit 25.3 % (42.0-52.0); Hemoglobin 8.1 g/dL (14.0-18.0); Mean Corpuscular Hemoglobin 29.9 pg (27.0-31.0); Mean Corpuscular Volume 93.4 fl (78.0-98.0); Mean Platelet Volume 10.2 fL (7.4-10.4); Platelet Count 144 10x3/uL (130-400); RBC Distribution Width 15.2 % (11.5-14.5); Red Blood Cell (RBC) Count 2.71 mill/uL (4.70-6.10); White Blood Cell (WBC) Count 10.4 10x3/uL (4.8-10.8)
[2023-07-22] MEDS: Polyethylene Glycol 3350 17 GM Packet PO SCH (09:24)
[2023-07-22] MEDS: Aspirin Chewable 81 MG TAB PER TUBE SCH (09:24)
[2023-07-22] MEDS: GUAIFENESIN SF SOLN 200 MG/10 ML UDCUP PO SCH ×2 (09:24→20:21)
[2023-07-22] MEDS: Docusate Sodium 100 MG/10 ML UDCUP PO SCH (09:24)
[2023-07-22] MEDS: Heparin 5,000 UNITS/ML VIAL SC SCH ×2 (09:25→20:41)
[2023-07-22] MEDS: Scopolamine 1 mg/72 hour Patch TD SCH (09:25)
[2023-07-22 09:34] LABS: ALT (SGPT) 20 U/L (8-55); AST (SGOT) 17 U/L (5-34); Albumin 3.3 g/dL (3.4-4.8); Alkaline Phosphatase 84 U/L (40-110); Anion Gap 13 mmol/L (10-20); BUN (Urea Nitrogen) 24 mg/dL (8.4-25.7); Bilirubin, Total 0.9 mg/dL (0.2-1.2); Calc. Creatinine Clearance 53 mL/min (70-130); Calcium 9.4 mg/dL (7.8-10.44); Carbon Dioxide 19 mmol/L (23-31); Chloride 119 mmol/L (98-107); Estimated GFR 55; Globulin 2.6 g/dL (2.4-3.5); Glucose 150 mg/dL (83-110); Potassium 3.8 mmol/L (3.5-5.1); Protein, Total 5.9 g/dL (5.8-8.1); Sodium 147 mmol/L (136-145)
[2023-07-22] MEDS ORDERED: Lisinopril 20 MG TAB PO SCH (11:30)
[2023-07-22] MEDS: Dextrose 5% w/ 20 mEq KCl 1,000 ML IV SCH ×3 (11:35→17:14)
[2023-07-22] MEDS: Famotidine 20 MG TAB PO SCH (20:21)
[2023-07-22] MEDS ORDERED: traMADol HCl 50 MG TAB PER TUBE SCH (21:30)
[2023-07-22] MEDS: Acetaminophen 325 MG TAB PER TUBE PRN (22:27)
[2023-07-23] MEDS: hydrALAZINE 20 MG/ML VIAL SLOW IVP PRN ×3 (00:47→19:58)
[2023-07-23] MEDS: Acetaminophen 325 MG TAB PER TUBE PRN (05:01)
[2023-07-23] MEDS: Insulin Regular 300 UNITS/3 ML VIAL SC PRN (05:02)
[2023-07-23] MEDS: Labetalol HCl 100 MG/20 ML VIAL SLOW IVP PRN ×2 (05:02→12:32)
[2023-07-23 06:19] LABS: #Eosinphils 0.3 thou/uL (0.0-0.7); #Monocytes 0.9 thou/uL (0.11-0.59); %Basophils 0.1 % (0.0-1.0); %Eosinophils 3.9 % (0.0-10.0); %Lymphocytes 5.6 % (21.0-51.0); %Monocytes 11.5 % (0.0-10.0); %Neutrophils 77.2 % (42.0-75.0); Hematocrit 23.9 % (42.0-52.0); Hemoglobin 7.8 g/dL (14.0-18.0); Mean Corpuscular HGB CONC 32.6 g/dL (32.0-36.0); Mean Corpuscular Hemoglobin 30.5 pg (27.0-31.0); Mean Corpuscular Volume 93.4 fl (78.0-98.0); Mean Platelet Volume 11.3 fL (7.4-10.4); Platelet Count 180 10x3/uL (130-400); RBC Distribution Width 15.2 % (11.5-14.5); Red Blood Cell (RBC) Count 2.56 mill/uL (4.70-6.10); White Blood Cell (WBC) Count 7.7 10x3/uL (4.8-10.8)
[2023-07-23 06:58] LABS: ALT (SGPT) 20 U/L (8-55); AST (SGOT) 27 U/L (5-34); Albumin 2.9 g/dL (3.4-4.8); Alkaline Phosphatase 75 U/L (40-110); Anion Gap 14 mmol/L (10-20); BUN (Urea Nitrogen) 21 mg/dL (8.4-25.7); Bilirubin, Total 0.5 mg/dL (0.2-1.2); Calc. Creatinine Clearance 53 mL/min (70-130); Calcium 8.9 mg/dL (7.8-10.44); Carbon Dioxide 18 mmol/L (23-31); Chloride 118 mmol/L (98-107); Estimated GFR 56; Globulin 3.1 g/dL (2.4-3.5); Glucose 155 mg/dL (83-110); Potassium 4.1 mmol/L (3.5-5.1); Sodium 146 mmol/L (136-145)
[2023-07-23] MEDS: Ipratropium/Albuterol 3 ML NEB NEB SCH ×4 (07:13→23:36)
[2023-07-23] MEDS: Docusate Sodium 100 MG/10 ML UDCUP PO SCH (08:57)
[2023-07-23] MEDS: Heparin 5,000 UNITS/ML VIAL SC SCH ×2 (08:57→20:31)
[2023-07-23] MEDS: Aspirin Chewable 81 MG TAB PER TUBE SCH (08:57)
[2023-07-23] MEDS: Polyethylene Glycol 3350 17 GM Packet PO SCH (08:57)
[2023-07-23] MEDS: GUAIFENESIN SF SOLN 200 MG/10 ML UDCUP PO SCH ×2 (08:57→20:31)
[2023-07-23] MEDS: Lisinopril 20 MG TAB PO SCH (08:57)
[2023-07-23 13:35] LABS: Potassium - ABG Lab 2.63 mmol/L (3.70-5.30)
[2023-07-23] MEDS ORDERED: Ipratropium/Albuterol 3 ML NEB NEB PRN (21:52)
[2023-07-23 22:26] LABS: #Eosinphils 0.1 thou/uL (0.0-0.7); #Neutrophils 7.8 thou/uL (1.40-6.50); %Basophils 0.2 % (0.0-1.0); %Eosinophils 1.5 % (0.0-10.0); %Lymphocytes 4.9 % (21.0-51.0); %Monocytes 10.6 % (0.0-10.0); %Neutrophils 80.6 % (42.0-75.0); Hematocrit 25.6 % (42.0-52.0); Hemoglobin 8.4 g/dL (14.0-18.0); Mean Corpuscular HGB CONC 32.8 g/dL (32.0-36.0); Mean Corpuscular Hemoglobin 30.4 pg (27.0-31.0); Mean Corpuscular Volume 92.8 fl (78.0-98.0); Mean Platelet Volume 9.8 fL (7.4-10.4); Platelet Count 159 10x3/uL (130-400); Red Blood Cell (RBC) Count 2.76 mill/uL (4.70-6.10); White Blood Cell (WBC) Count 9.6 10x3/uL (4.8-10.8)
[2023-07-23] MEDS ORDERED: Furosemide 40 MG/4 ML VIAL SLOW IVP SCH (22:45)
[2023-07-23 22:47] LABS: Anion Gap 15 mmol/L (10-20); BUN (Urea Nitrogen) 22 mg/dL (8.4-25.7); Calc. Creatinine Clearance 51 mL/min (70-130); Calcium 8.9 mg/dL (7.8-10.44); Carbon Dioxide 19 mmol/L (23-31); Chloride 115 mmol/L (98-107); Estimated GFR 54; Glucose 224 mg/dL (83-110); Potassium 3.8 mmol/L (3.5-5.1); Sodium 145 mmol/L (136-145)
[2023-07-23 23:14] LABS: Magnesium 1.5 mg/dL (1.6-2.6)
[2023-07-23] MEDS: Acetaminophen 650 MG/20.3 ML UDCUP PER TUBE PRN (23:21)
[2023-07-23] MEDS ORDERED: Electrolyte Replacement Protocol 1 EACH FS SCH (23:30)
[2023-07-23] MEDS ORDERED: Furosemide 20 MG/2 ML VIAL SLOW IVP SCH (23:45)
[2023-07-23] MEDS ORDERED: Magnesium Sulfate In Water 4 GM in Premix 1 BAG IVPB SCH (23:59)
[2023-07-23] MEDS ORDERED: Acetaminophen 325 MG Suppository PR SCH (23:59)
[2023-07-24] MEDS: metroNIDAZOLE 500 MG in Premix 1 BAG IVPB SCH ×4 (00:27→23:11)
[2023-07-24] MEDS: Cefepime 1 GM in Sodium Chloride 0.9% 100 ML IVPB SCH ×2 (01:32→13:30)
[2023-07-24] MEDS: Vancomycin (BATCH) 1.5 GM in Premix 1 BAG IVPB SCH (02:22)
[2023-07-24] MEDS: Ipratropium/Albuterol 3 ML NEB NEB SCH ×6 (03:34→22:37)
[2023-07-24 03:56] LABS: Actual Bicarbonate (HCO3a) 20.1 mEq/L (22-28); Base Excess (BEa) -3.4 mEq/L (-2.0 to +3.0); CO2 Tension 29.6 mmHg (35.0-45.0); Calcium, Ionized (arterial) 1.23 mmol/L (1.12-1.30); Carboxyhemoglobin (COHb) 0.9 gm% (0.0-3.0); Hematocrit-ABG 23 % (42.0-52.0); Hemoglobin (Hb) 7.9 g/dL (14.0-18.0); Potassium - ABG Lab 3.34 mmol/L (3.70-5.30); pH, Arterial 7.449 (7.35-7.45)
[2023-07-24 03:58] LABS: O2 Tension (PaO2), arterial 49.9 mmHg (> 70.0)
[2023-07-24 03:59] LABS: Puncture Site RRA
[2023-07-24 07:01] LABS: #Eosinphils 0.1 thou/uL (0.0-0.7); #Monocytes 0.9 thou/uL (0.11-0.59); #Neutrophils 7.9 thou/uL (1.40-6.50); %Basophils 0.2 % (0.0-1.0); %Eosinophils 0.6 % (0.0-10.0); %Monocytes 9.3 % (0.0-10.0); %Neutrophils 82.2 % (42.0-75.0); Hematocrit 26.8 % (42.0-52.0); Hemoglobin 8.5 g/dL (14.0-18.0); Mean Corpuscular HGB CONC 31.7 g/dL (32.0-36.0); Mean Corpuscular Hemoglobin 29.6 pg (27.0-31.0); Mean Corpuscular Volume 93.4 fl (78.0-98.0); Mean Platelet Volume 9.8 fL (7.4-10.4); Platelet Count 173 10x3/uL (130-400); RBC Distribution Width 15.1 % (11.5-14.5); Red Blood Cell (RBC) Count 2.87 mill/uL (4.70-6.10); White Blood Cell (WBC) Count 9.6 10x3/uL (4.8-10.8)
[2023-07-24 07:40] LABS: ALT (SGPT) 17 U/L (8-55); AST (SGOT) 17 U/L (5-34); Albumin 3.2 g/dL (3.4-4.8); Alkaline Phosphatase 84 U/L (40-110); Anion Gap 12 mmol/L (10-20); BUN (Urea Nitrogen) 24 mg/dL (8.4-25.7); Bilirubin, Total 0.6 mg/dL (0.2-1.2); Calc. Creatinine Clearance 46 mL/min (70-130); Calcium 9.5 mg/dL (7.8-10.44); Carbon Dioxide 22 mmol/L (23-31); Chloride 114 mmol/L (98-107); Estimated GFR 49; Globulin 2.8 g/dL (2.4-3.5); Glucose 219 mg/dL (83-110); Magnesium 2.4 mg/dL (1.6-2.6); Potassium 3.3 mmol/L (3.5-5.1); Sodium 145 mmol/L (136-145)
[2023-07-24] MEDS: Heparin 5,000 UNITS/ML VIAL SC SCH ×2 (08:12→20:10)
[2023-07-24] MEDS ORDERED: Vancomycin 1 GM in Premix 1 BAG IVPB SCH (09:00)
[2023-07-24] MEDS ORDERED: Potassium Chloride 20 MEQ TAB PO SCH (09:00)
[2023-07-24] MEDS: Docusate Sodium 100 MG/10 ML UDCUP PO SCH (12:21)
[2023-07-24] MEDS: Aspirin Chewable 81 MG TAB PER TUBE SCH (12:21)
[2023-07-24] MEDS: Lisinopril 20 MG TAB PO SCH (12:21)
[2023-07-24] MEDS: GUAIFENESIN SF SOLN 200 MG/10 ML UDCUP PO SCH ×2 (12:22→20:10)
[2023-07-24] MEDS: Polyethylene Glycol 3350 17 GM Packet PO SCH (12:22)
[2023-07-24] MEDS: hydrALAZINE 20 MG/ML VIAL SLOW IVP PRN ×2 (13:30→21:50)
[2023-07-24] MEDS: Labetalol HCl 100 MG/20 ML VIAL SLOW IVP PRN ×3 (16:20→22:46)
[2023-07-24] MEDS: Acetaminophen 650 MG/20.3 ML UDCUP PER TUBE PRN (20:10)
[2023-07-24] MEDS: Famotidine 20 MG TAB PO SCH (20:11)
[2023-07-24] MEDS ORDERED: Labetalol HCl 100 MG/20 ML VIAL SLOW IVP SCH (22:15)
[2023-07-24] MEDS ORDERED: NIFEdipine 10 MG CAP PER TUBE SCH (22:30)
[2023-07-25] MEDS: Ipratropium/Albuterol 3 ML NEB NEB SCH ×6 (02:33→22:47)
[2023-07-25] MEDS: Cefepime 1 GM in Sodium Chloride 0.9% 100 ML IVPB SCH ×2 (03:08→11:17)
[2023-07-25] MEDS: Vancomycin (BATCH) 1.5 GM in Premix 1 BAG IVPB SCH (03:28)
[2023-07-25 07:03] LABS: #Eosinphils 0.1 thou/uL (0.0-0.7); #Monocytes 0.7 thou/uL (0.11-0.59); #Neutrophils 7.9 thou/uL (1.40-6.50); %Basophils 0.2 % (0.0-1.0); %Eosinophils 0.6 % (0.0-10.0); %Lymphocytes 6.4 % (21.0-51.0); %Monocytes 7.1 % (0.0-10.0); %Neutrophils 84.8 % (42.0-75.0); Hematocrit 25.5 % (42.0-52.0); Mean Corpuscular HGB CONC 31.4 g/dL (32.0-36.0); Mean Corpuscular Volume 92.4 fl (78.0-98.0); Mean Platelet Volume 9.7 fL (7.4-10.4); Platelet Count 176 10x3/uL (130-400); RBC Distribution Width 14.9 % (11.5-14.5); Red Blood Cell (RBC) Count 2.76 mill/uL (4.70-6.10); White Blood Cell (WBC) Count 9.3 10x3/uL (4.8-10.8)
[2023-07-25 07:35] LABS: ALT (SGPT) 18 U/L (8-55); AST (SGOT) 22 U/L (5-34); Alkaline Phosphatase 76 U/L (40-110); Anion Gap 13 mmol/L (10-20); BUN (Urea Nitrogen) 26 mg/dL (8.4-25.7); Bilirubin, Total 0.7 mg/dL (0.2-1.2); Calc. Creatinine Clearance 52 mL/min (70-130); Calcium 8.7 mg/dL (7.8-10.44); Carbon Dioxide 23 mmol/L (23-31); Chloride 115 mmol/L (98-107); Estimated GFR 56; Globulin 2.1 g/dL (2.4-3.5); Glucose 110 mg/dL (83-110); Protein, Total 5.1 g/dL (5.8-8.1); Sodium 148 mmol/L (136-145)
[2023-07-25] MEDS: GUAIFENESIN SF SOLN 200 MG/10 ML UDCUP PO SCH ×2 (08:37→20:34)
[2023-07-25] MEDS: Heparin 5,000 UNITS/ML VIAL SC SCH ×2 (08:37→20:34)
[2023-07-25] MEDS: Aspirin Chewable 81 MG TAB PER TUBE SCH (08:37)
[2023-07-25] MEDS: Scopolamine 1 mg/72 hour Patch TD SCH (08:38)
[2023-07-25] MEDS: Lisinopril 20 MG TAB PO SCH (08:38)
[2023-07-25] MEDS: metroNIDAZOLE 500 MG in Premix 1 BAG IVPB SCH ×2 (08:38→15:21)
[2023-07-25] MEDS: NIFEdipine 10 MG CAP PER TUBE SCH ×3 (08:38→20:34)
[2023-07-25] MEDS: Docusate Sodium 100 MG/10 ML UDCUP PO SCH (08:39)
[2023-07-25] MEDS: Polyethylene Glycol 3350 17 GM Packet PO SCH (08:39)
[2023-07-25] MEDS: Potassium Chloride 20 MEQ in Premix 1 BAG IVPB SCH ×2 (09:19→11:17)
[2023-07-25] MEDS: Acetaminophen 650 MG/20.3 ML UDCUP PER TUBE PRN (16:47)
[2023-07-25] MEDS ORDERED: methylPREDNISolone Sod Succ 40 MG VIAL IVP SCH (18:30)
[2023-07-25] MEDS ORDERED: Pantoprazole 40 MG VIAL IVP SCH (18:45)
[2023-07-26] MEDS: Ipratropium/Albuterol 3 ML NEB NEB SCH ×6 (01:18→22:58)
[2023-07-26] MEDS: Cefepime 1 GM in Sodium Chloride 0.9% 100 ML IVPB SCH ×2 (01:52→13:12)
[2023-07-26] MEDS: metroNIDAZOLE 500 MG in Premix 1 BAG IVPB SCH ×3 (01:52→15:37)
[2023-07-26] MEDS: Vancomycin (BATCH) 1.5 GM in Premix 1 BAG IVPB SCH (02:08)
[2023-07-26] MEDS: Acetaminophen 650 MG/20.3 ML UDCUP PER TUBE PRN ×2 (03:09→20:43)
[2023-07-26 05:41] LABS: #Monocytes 0.2 thou/uL (0.11-0.59); #Neutrophils 8.8 thou/uL (1.40-6.50); %Basophils 0.1 % (0.0-1.0); %Monocytes 2.1 % (0.0-10.0); %Neutrophils 92.2 % (42.0-75.0); Hemoglobin 8.3 g/dL (14.0-18.0); Mean Corpuscular HGB CONC 30.7 g/dL (32.0-36.0); Mean Corpuscular Hemoglobin 29.5 pg (27.0-31.0); Mean Platelet Volume 9.4 fL (7.4-10.4); Platelet Count 212 10x3/uL (130-400); RBC Distribution Width 14.7 % (11.5-14.5); Red Blood Cell (RBC) Count 2.81 mill/uL (4.70-6.10); White Blood Cell (WBC) Count 9.6 10x3/uL (4.8-10.8)
[2023-07-26 05:46] LABS: Mean Corpuscular Volume 96.1 fl (78.0-98.0)
[2023-07-26 06:06] LABS: ALT (SGPT) 18 U/L (8-55); AST (SGOT) 23 U/L (5-34); Albumin 2.9 g/dL (3.4-4.8); Alkaline Phosphatase 71 U/L (40-110); Anion Gap 23 mmol/L (10-20); BUN (Urea Nitrogen) 38 mg/dL (8.4-25.7); Bilirubin, Total 0.6 mg/dL (0.2-1.2); Calc. Creatinine Clearance 41 mL/min (70-130); Calcium 8.8 mg/dL (7.8-10.44); Carbon Dioxide 15 mmol/L (23-31); Chloride 116 mmol/L (98-107); Estimated GFR 44; Glucose 169 mg/dL (83-110); Potassium 3.3 mmol/L (3.5-5.1); Protein, Total 5.9 g/dL (5.8-8.1)
[2023-07-26 06:08] LABS: Sodium 151 mmol/L (136-145)
[2023-07-26] MEDS: methylPREDNISolone Sod Succ 40 MG VIAL IVP SCH (07:59)
[2023-07-26] MEDS: NIFEdipine 10 MG CAP PER TUBE SCH ×3 (08:00→20:37)
[2023-07-26] MEDS ORDERED: Potassium Chloride 20 MEQ TAB PO SCH (08:00)
[2023-07-26] MEDS: GUAIFENESIN SF SOLN 200 MG/10 ML UDCUP PO SCH ×2 (08:00→20:37)
[2023-07-26] MEDS: Aspirin Chewable 81 MG TAB PER TUBE SCH (08:00)
[2023-07-26] MEDS: Pantoprazole 40 MG VIAL IVP SCH (08:00)
[2023-07-26] MEDS: Lisinopril 20 MG TAB PO SCH (08:00)
[2023-07-26] MEDS: Heparin 5,000 UNITS/ML VIAL SC SCH ×2 (08:00→20:37)
[2023-07-26] MEDS: Polyethylene Glycol 3350 17 GM Packet PO SCH (08:00)
[2023-07-26] MEDS: Docusate Sodium 100 MG/10 ML UDCUP PO SCH (08:01)
[2023-07-26] MEDS: Dextrose 5% in Water 1,000 ML IV SCH (10:26)
[2023-07-26] MEDS: Insulin Regular 300 UNITS/3 ML VIAL SC PRN ×3 (10:26→22:21)
[2023-07-26 12:07] LABS: Potassium 3.3 mmol/L (3.5-5.1)
[2023-07-26] MEDS: Famotidine 20 MG TAB PO SCH (20:37)
[2023-07-27] MEDS: metroNIDAZOLE 500 MG in Premix 1 BAG IVPB SCH ×2 (00:18→09:55)
[2023-07-27] MEDS: Cefepime 1 GM in Sodium Chloride 0.9% 100 ML IVPB SCH ×2 (00:19→12:05)
[2023-07-27] MEDS: Vancomycin (BATCH) 1.5 GM in Premix 1 BAG IVPB SCH (01:24)
[2023-07-27] MEDS: Ipratropium/Albuterol 3 ML NEB NEB SCH ×4 (01:53→14:01)
[2023-07-27] MEDS: Dextrose 5% in Water 1,000 ML IV SCH (05:25)
[2023-07-27] MEDS: Insulin Regular 300 UNITS/3 ML VIAL SC PRN (05:38)
[2023-07-27 06:38] LABS: #Monocytes 0.4 thou/uL (0.11-0.59); #Neutrophils 12.1 thou/uL (1.40-6.50); %Basophils 0.2 % (0.0-1.0); %Lymphocytes 4.6 % (21.0-51.0); %Neutrophils 91.7 % (42.0-75.0); Hematocrit 25.3 % (42.0-52.0); Mean Corpuscular HGB CONC 31.6 g/dL (32.0-36.0); Mean Corpuscular Hemoglobin 29.6 pg (27.0-31.0); Mean Corpuscular Volume 93.7 fl (78.0-98.0); Mean Platelet Volume 9.6 fL (7.4-10.4); Platelet Count 286 10x3/uL (130-400); RBC Distribution Width 14.6 % (11.5-14.5); White Blood Cell (WBC) Count 13.2 10x3/uL (4.8-10.8)
[2023-07-27 07:04] LABS: ALT (SGPT) 14 U/L (8-55); AST (SGOT) 16 U/L (5-34); Albumin 2.9 g/dL (3.4-4.8); Alkaline Phosphatase 73 U/L (40-110); Anion Gap 12 mmol/L (10-20); BUN (Urea Nitrogen) 50 mg/dL (8.4-25.7); Bilirubin, Total 0.3 mg/dL (0.2-1.2); Calc. Creatinine Clearance 38 mL/min (70-130); Calcium 8.4 mg/dL (7.8-10.44); Carbon Dioxide 21 mmol/L (23-31); Chloride 115 mmol/L (98-107); Estimated GFR 39; Globulin 2.7 g/dL (2.4-3.5); Glucose 270 mg/dL (83-110); Potassium 3.1 mmol/L (3.5-5.1); Protein, Total 5.6 g/dL (5.8-8.1); Sodium 145 mmol/L (136-145)
[2023-07-27 07:51] VITALS: TEMP 98.5
[2023-07-27] MEDS ORDERED: Insulin Regular 300 UNITS/3 ML VIAL SC PRN (07:54)
[2023-07-27] MEDS ORDERED: Lactated Ringer's 1,000 ML IV SCH (08:00)
[2023-07-27 08:02] VITALS: BP 135/60
[2023-07-27] MEDS ORDERED: Potassium Chloride 20 MEQ TAB PO SCH (08:45)
[2023-07-27] MEDS ORDERED: Potassium Bicarbonate/Cit Ac 20 MEQ TAB PER TUBE SCH (09:00)
[2023-07-27 09:28] VITALS: BMI 21.4
[2023-07-27] MEDS: Docusate Sodium 100 MG/10 ML UDCUP PO SCH (09:55)
[2023-07-27] MEDS: Heparin 5,000 UNITS/ML VIAL SC SCH (09:55)
[2023-07-27] MEDS: methylPREDNISolone Sod Succ 40 MG VIAL IVP SCH (09:55)
[2023-07-27] MEDS: GUAIFENESIN SF SOLN 200 MG/10 ML UDCUP PO SCH (09:58)
[2023-07-27] MEDS: Polyethylene Glycol 3350 17 GM Packet PO SCH (09:58)
[2023-07-27] MEDS: Pantoprazole 40 MG VIAL IVP SCH (09:58)
[2023-07-27] MEDS: NIFEdipine 10 MG CAP PER TUBE SCH (09:59)
[2023-07-27] MEDS: Aspirin Chewable 81 MG TAB PER TUBE SCH (09:59)
[2023-07-27] MEDS: Acetaminophen 650 MG/20.3 ML UDCUP PER TUBE PRN (10:04)
[2023-07-27] MEDS ORDERED: Cefepime 1 GM VIAL ONE (12:01)
== END 2023-07-27 16:39 | disposition hospice, home (50) | DRG 280 ==
LOC: ERS 08:11 → CCU 10:26 → T4-B 07-22 14:25 → IMCU/EMU 07-24 04:35
PROVIDERS: ADMIT Family Medicine; ATTEND Family Medicine
PROC: 0T9B70Z Drainage of Bladder with Drainage Device, Via Natural or Artificial Opening (ICD-10-PCS; principal; 2023-07-17)
PROC: 06HY33Z Insertion of Infusion Device into Lower Vein, Percutaneous Approach (ICD-10-PCS; 2023-07-17)
PROC: 0DH67UZ Insertion of Feeding Device into Stomach, Via Natural or Artificial Opening (ICD-10-PCS; 2023-07-17)
PROC: 4A133R1 Monitoring of Arterial Saturation, Peripheral, Percutaneous Approach (ICD-10-PCS; 2023-07-17)
PROC: 5A1945Z Respiratory Ventilation, 24-96 Consecutive Hours (ICD-10-PCS; 2023-07-17)
PROC: 5A0945A Assistance with Respiratory Ventilation, 24-96 Consecutive Hours, High Flow/Velocity Cannula (ICD-10-PCS; 2023-07-24)
DX: I46.9 Cardiac arrest, cause unspecified (principal); G93.41 Metabolic encephalopathy; I21.A1 Myocardial infarction type 2; J18.9 Pneumonia, unspecified organism; J96.01 Acute respiratory failure with hypoxia; J69.0 Pneumonitis due to inhalation of food and vomit; S22.43XA Multiple fractures of ribs, bilateral, initial encounter for closed fracture; N17.9 Acute kidney failure, unspecified; N39.0 Urinary tract infection, site not specified; N18.4 Chronic kidney disease, stage 4 (severe); S27.0XXA Traumatic pneumothorax, initial encounter; E87.0 Hyperosmolality and hypernatremia; I69.351 Hemiplegia and hemiparesis following cerebral infarction affecting right dominant side; E87.4 Mixed disorder of acid-base balance; R64 Cachexia; E44.1 Mild protein-calorie malnutrition; Z88.0 Allergy status to penicillin; Z88.5 Allergy status to narcotic agent; Z79.899 Other long term (current) drug therapy; Z79.4 Long term (current) use of insulin; Z79.82 Long term (current) use of aspirin; K21.9 Gastro-esophageal reflux disease without esophagitis; E78.5 Hyperlipidemia, unspecified; I12.9 Hypertensive chronic kidney disease with stage 1 through stage 4 chronic kidney disease, or unspecified chronic kidney disease; E11.22 Type 2 diabetes mellitus with diabetic chronic kidney disease; Z98.890 Other specified postprocedural states; Z98.41 Cataract extraction status, right eye; Z98.42 Cataract extraction status, left eye; F32.A Depression, unspecified; E87.6 Hypokalemia; Z91.018 Allergy to other foods; T68.XXXA Hypothermia, initial encounter; L89.629 Pressure ulcer of left heel, unspecified stage; L89.619 Pressure ulcer of right heel, unspecified stage; Z79.01 Long term (current) use of anticoagulants; Z51.5 Encounter for palliative care; Z68.21 Body mass index [BMI] 21.0-21.9, adult; K59.00 Constipation, unspecified; Z66 Do not resuscitate
CPT/HCPCS: 31500; 36415; 36416; 36556; 36600; 43753; 51702; 70450; 71045; 71275; 74018; 74176; 80053; 80202; 80306; 80307; 81001; 82140; 82533; 82805; 83605; 83690; 83735; 83880; 84100; 84145; 84443; 84484; 85025; 85610; 85730; 86850; 86900; 86901; 87040; 87081; 87086; 90471; 90694; 93005; 93306; 94002; 94003; 94640; 96365; 96366; 96367; 96375; 97139; 99292; C9113; G0008; J0171; J0282; J0283; J0360; J0692; J1644; J1815; J1940; J2272; J2704; J2920; J3010; J3370; J3475; J3480; J3490; J7050; J7070; J7120; J7620; Q9967; S0028